=== PATIENT | male | born 1950 | race Caucasian/White ===

== ENCOUNTER 2020-08-12 14:23 | Inpatient (IN) ==
--- NOTE | 2020-08-12 15:26 | Emergency Department Note ---
History of Present Illness General Chief complaint: Cardiac Assessment Stated complaint: CARDIAC Time Seen by Provider: 08/12/20 15:08 Source: patient History of Present Illness Provider complaint: Chest pain Onset (ago): week(s) Location: chest Severity: moderate Pain Consistency: + intermittent and + now resolved Maximum Pain Intensity: 6 Quality: + other (Tightness) Exacerbated By: + other (Exertion) Associated symptoms: + cough (Chronic mild cough which is nonproductive in the morning) and + shortness of breath; no fever/chills, no malaise and no nausea/vomiting Treatments prior to arrival: other (300 cc bolus of normal saline IV) This is a 70-year-old male who presents with chest pain intermittently for the past week. The patient states that the pain is a tightness in the middle of his chest. It is associated with shortness of breath. He rates it a 6 out of 10 in severity at its worse. It is now resolved. It is worse when he exerts himself. He also has had palpitations on and off for the past 3 to 4 weeks. He describes it as an irregular heartbeat and sometimes tachycardia. He does state that he has been lightheaded recently but denies any syncope. He denies any fever, abdominal pain, vomiting or urinary symptoms. He has had some diarrhea previously but that has resolved. He denies any history of ICH or GI bleed. He is not on any anticoagulants other than aspirin. He has had a nonproductive c ough which she has only in the mornings for about 5 weeks. He denies any loss of taste or smell or known exposure to COVID-19. Home Medications Home Medications Medication Instructions Recorded Confirmed Type acetaminophen 325 mg PO Q6H PRN 10/30/18 08/12/20 History aspirin 81 mg PO DAILY 10/30/18 08/12/20 History cholecalciferol (vitamin D3) 125 mcg PO DAILY #0 10/30/18 08/12/20 History [Vitamin D3] cyanocobalamin (vitamin B-12) 1,000 mcg PO DAILY #0 10/30/18 08/12/20 History [Vitamin B-12] duloxetine 60 mg PO PM 10/30/18 08/12/20 History finasteride 5 mg PO DAILY 10/30/18 08/12/20 History metformin 2,000 mg PO PM 10/30/18 08/12/20 History metoprolol tartrate 37.5 mg PO BID 10/30/18 08/12/20 History cyclobenzaprine 10 mg PO HS 07/07/20 08/12/20 History morphine 15 mg PO BID 07/07/20 08/12/20 History omeprazole 20 mg PO DAILY 07/07/20 08/12/20 History pregabalin 100 mg PO TID 07/07/20 08/12/20 History rosuvastatin 40 mg PO DAILY 07/07/20 08/12/20 History topiramate 25 mg PO BID 07/07/20 08/12/20 History Januvia 100 mg PO DAILY 08/12/20 08/12/20 History duloxetine 30 mg PO QPM 08/12/20 08/12/20 History insulin glargine [Lantus U-100 20 unit SUBCUT QAM 08/12/20 08/12/20 History Insulin] linagliptin [Tradjenta] 5 mg PO DAILY 08/12/20 08/12/20 History magnesium oxide 400 mg PO DAILY 08/12/20 08/12/20 History nystatin 1 applic TOPICAL UD 08/12/20 08/12/20 History potassium chloride 10 meq PO BID 08/12/20 08/12/20 History Allergies Allergy/AdvReac Type Severity Reaction Status Date / Time No Known Drug Allergies Allergy Unknown Verified 08/12/20 17:34 Past Med/Surg History Medical History (Updated 08/12/20 @ 19:34 by Kp Means MD) 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 BPH (benign prostatic hyperplasia) CAD (coronary artery disease) Chronic pain due to trauma Depression Diabetes mellitus Drug induced constipation Former cigarette smoker HTN (hypertension) KEMI (obstructive sleep apnea) UTI symptoms Surgical History Heart valve replaced History of appendectomy History of tonsillectomy Hx of CABG S/P AVR (aortic valve replacement) Family History Mother Skin cancer Sister Intestinal cancer Social History Smoking Status: Former smoker Second Hand Exposure: No; Hx Alcohol Use: No Hx Substance Use: No Preferred Language: Macedonian Communication Ability: Impaired Beliefs That Will Affect Care: None Current Living Situation: Alone Feels Safe at Home: Yes Assistive Devices: Denture - Upper, Denture - Lower, Glasses, Hearing Aid - Left, Hearing Aid - Right and Wheelchair Review of Systems See HPI for pertinent positives & negatives. and A total of 10 systems reviewed and were otherwise negative Physical Exam Vital Signs Vital Signs - 24 hr 08/12/20 14:29 08/12/20 14:32 08/12/20 14:34 Temperature 36.7 C Temperature Source Oral Pulse Rate 106 H 101 H 93 H Pulse Rate [Apical] Pulse Rate from SpO2 Sensor 97 H Respiratory Rate 18 21 23 Respiratory Effort / Characteristics Respiratory Depth Respiratory Pattern Blood Pressure 91/61 L 91/61 L Blood Pressure [Right Arm] Blood Pressure Mean 71 74 Blood Pressure Mean [Right Arm] Blood Pressure Position [Right Arm] Pulse Oximetry 92 98 Oxygen Delivery Method Room Air Sepsis Recent Fever Within 48 Hours No Sepsis New/Unexplained Change in Mental Status N/A Sepsis Action Taken by Nursing No Action Required 08/12/20 14:40 08/12/20 14:50 08/12/20 15:00 Temperature Temperature Source Pulse Rate 93 H 102 H 92 H Pulse Rate [Apical] Pulse Rate from SpO2 Sensor 100 H Respiratory Rate 25 H 25 H 16 Respiratory Effort / Characteristics Respiratory Depth Respiratory Pattern Blood Pressure 110/59 L Blood Pressure [Right Arm] Blood Pressure Mean 71 Blood Pressure Mean [Right Arm] Blood Pressure Position [Right Arm] Pulse Oximetry 92 Oxygen Delivery Method Sepsis Recent Fever Within 48 Hours Sepsis New/Unexplained Change in Mental Status Sepsis Action Taken by Nursing 08/12/20 15:01 08/12/20 15:10 08/12/20 15:13 Temperature Temperature Source Pulse Rate 95 H 95 H Pulse Rate [Apical] 101 H Pulse Rate from SpO2 Sensor Respiratory Rate 16 15 16 Respiratory Effort / Characteristics Respiratory Depth Respiratory Pattern Blood Pressure Blood Pressure [Right Arm] 110/59 L Blood Pressure Mean Blood Pressure Mean [Right Arm] 76 Blood Pressure Position [Right Arm] Pulse Oximetry 96 Oxygen Delivery Method Sepsis Recent Fever Within 48 Hours Sepsis New/Unexplained Change in Mental Status Sepsis Action Taken by Nursing 08/12/20 15:20 08/12/20 15:30 08/12/20 15:31 Temperature Temperature Source Pulse Rate 91 H 97 H 102 H Pulse Rate [Apical] Pulse Rate from SpO2 Sensor Respiratory Rate 14 14 12 Respiratory Effort / Characteristics Respiratory Depth Respiratory Pattern Blood Pressure 109/66 Blood Pressure [Right Arm] Blood Pressure Mean 80 Blood Pressure Mean [Right Arm] Blood Pressure Position [Right Arm] Pulse Oximetry Oxygen Delivery Method Sepsis Recent Fever Within 48 Hours Sepsis New/Unexplained Change in Mental Status Sepsis Action Taken by Nursing 08/12/20 15:40 08/12/20 15:50 08/12/20 16:00 Temperature Temperature Source Pulse Rate 97 H 97 H Pulse Rate [Apical] Pulse Rate from SpO2 Sensor 100 H Respiratory Rate 16 20 Respiratory Effort / Characteristics Respiratory Depth Respiratory Pattern Blood Pressure 118/70 Blood Pressure [Right Arm] Blood Pressure Mean 76 Blood Pressure Mean [Right Arm] Blood Pressure Position [Right Arm] Pulse Oximetry 96 Oxygen Delivery Method Sepsis Recent Fever Within 48 Hours Sepsis New/Unexplained Change in Mental Status Sepsis Action Taken by Nursing 08/12/20 16:01 08/12/20 16:15 08/12/20 16:20 Temperature Temperature Source Pulse Rate 94 H 100 H Pulse Rate [Apical] Pulse Rate from SpO2 Sensor 102 H Respiratory Rate 26 H 24 Respiratory Effort / Characteristics Respiratory Depth Respiratory Pattern Blood Pressure Blood Pressure [Right Arm] Blood Pressure Mean Blood Pressure Mean [Right Arm] Blood Pressure Position [Right Arm] Pulse Oximetry 97 Oxygen Delivery Method Sepsis Recent Fever Within 48 Hours Sepsis New/Unexplained Change in Mental Status Sepsis Action Taken by Nursing 08/12/20 16:30 08/12/20 16:40 08/12/20 16:41 Temperature Temperature Source Pulse Rate 102 H 88 Pulse Rate [Apical] Pulse Rate from SpO2 Sensor 94 H Respiratory Rate 21 21 Respiratory Effort / Characteristics Respiratory Depth Respiratory Pattern Blood Pressure Blood Pressure [Right Arm] Blood Pressure Mean Blood Pressure Mean [Right Arm] Blood Pressure Position [Right Arm] Pulse Oximetry 98 92 Oxygen Delivery Method Room Air Sepsis Recent Fever Within 48 Hours Sepsis New/Unexplained Change in Mental Status Sepsis Action Taken by Nursing 08/12/20 16:50 08/12/20 17:00 08/12/20 17:10 Temperature Temperature Source Pulse Rate 91 H 99 H 100 H Pulse Rate [Apical] Pulse Rate from SpO2 Sensor 95 H 100 H 92 H Respiratory Rate 20 23 18 Respiratory Effort / Characteristics Respiratory Depth Respiratory Pattern Blood Pressure 94/67 L Blood Pressure [Right Arm] Blood Pressure Mean 76 Blood Pressure Mean [Right Arm] Blood Pressure Position [Right Arm] Pulse Oximetry 100 95 Oxygen Delivery Method Sepsis Recent Fever Within 48 Hours Sepsis New/Unexplained Change in Mental Status Sepsis Action Taken by Nursing 08/12/20 17:20 08/12/20 17:30 08/12/20 17:31 Temperature Temperature Source Pulse Rate 92 H 93 H 100 H Pulse Rate [Apical] Pulse Rate from SpO2 Sensor 95 H 91 H 99 H Respiratory Rate 17 23 22 Respiratory Effort / Characteristics Respiratory Depth Respiratory Pattern Blood Pressure 91/46 L Blood Pressure [Right Arm] Blood Pressure Mean 66 Blood Pressure Mean [Right Arm] Blood Pressure Position [Right Arm] Pulse Oximetry 94 96 96 Oxygen Delivery Method Sepsis Recent Fever Within 48 Hours Sepsis New/Unexplained Change in Mental Status Sepsis Action Taken by Nursing 08/12/20 17:40 08/12/20 17:50 08/12/20 18:00 Temperature Temperature Source Pulse Rate 91 H 89 97 H Pulse Rate [Apical] Pulse Rate from SpO2 Sensor 117 H 103 H Respiratory Rate 16 15 18 Respiratory Effort / Characteristics Respiratory Depth Respiratory Pattern Blood Pressure 105/56 L Blood Pressure [Right Arm] Blood Pressure Mean 64 Blood Pressure Mean [Right Arm] Blood Pressure Position [Right Arm] Pulse Oximetry Oxygen Delivery Method Sepsis Recent Fever Within 48 Hours Sepsis New/Unexplained Change in Mental Status Sepsis Action Taken by Nursing 08/12/20 18:01 08/12/20 18:10 08/12/20 18:20 Temperature Temperature Source Pulse Rate 95 H 92 H 96 H Pulse Rate [Apical] Pulse Rate from SpO2 Sensor Respiratory Rate 17 18 22 Respiratory Effort / Characteristics Respiratory Depth Respiratory Pattern Blood Pressure Blood Pressure [Right Arm] Blood Pressure Mean Blood Pressure Mean [Right Arm] Blood Pressure Position [Right Arm] Pulse Oximetry Oxygen Delivery Method Sepsis Recent Fever Within 48 Hours Sepsis New/Unexplained Change in Mental Status Sepsis Action Taken by Nursing 08/12/20 18:30 08/12/20 18:31 08/12/20 18:40 Temperature Temperature Source Pulse Rate 90 97 H 98 H Pulse Rate [Apical] Pulse Rate from SpO2 Sensor Respiratory Rate 20 21 16 Respiratory Effort / Characteristics Respiratory Depth Respiratory Pattern Blood Pressure 95/64 L Blood Pressure [Right Arm] Blood Pressure Mean 69 Blood Pressure Mean [Right Arm] Blood Pressure Position [Right Arm] Pulse Oximetry Oxygen Delivery Method Sepsis Recent Fever Within 48 Hours Sepsis New/Unexplained Change in Mental Status Sepsis Action Taken by Nursing 08/12/20 18:45 08/12/20 18:46 08/12/20 18:50 Temperature Temperature Source Pulse Rate 90 94 H Pulse Rate [Apical] 98 H Pulse Rate from SpO2 Sensor 95 H Respiratory Rate 18 20 20 Respiratory Effort / Characteristics Non-Labored Spontaneous Respiratory Depth Normal Respiratory Pattern Regular Blood Pressure 93/47 L Blood Pressure [Right Arm] 93/47 L Blood Pressure Mean 72 Blood Pressure Mean [Right Arm] 62 Blood Pressure Position [Right Arm] Lying Pulse Oximetry 94 Oxygen Delivery Method Room Air Sepsis Recent Fever Within 48 Hours Sepsis New/Unexplained Change in Mental Status Sepsis Action Taken by Nursing 08/12/20 19:00 08/12/20 19:01 08/12/20 19:10 Temperature Temperature Source Pulse Rate 97 H 99 H 103 H Pulse Rate [Apical] Pulse Rate from SpO2 Sensor Respiratory Rate 20 19 14 Respiratory Effort / Characteristics Respiratory Depth Respiratory Pattern Blood Pressure 103/61 Blood Pressure [Right Arm] Blood Pressure Mean 75 Blood Pressure Mean [Right Arm] Blood Pressure Position [Right Arm] Pulse Oximetry Oxygen Delivery Method Sepsis Recent Fever Within 48 Hours Sepsis New/Unexplained Change in Mental Status Sepsis Action Taken by Nursing 08/12/20 19:20 Temperature Temperature Source Pulse Rate 97 H Pulse Rate [Apical] Pulse Rate from SpO2 Sensor Respiratory Rate 17 Respiratory Effort / Characteristics Respiratory Depth Respiratory Pattern Blood Pressure Blood Pressure [Right Arm] Blood Pressure Mean Blood Pressure Mean [Right Arm] Blood Pressure Position [Right Arm] Pulse Oximetry Oxygen Delivery Method Sepsis Recent Fever Within 48 Hours Sepsis New/Unexplained Change in Mental Status Sepsis Action Taken by Nursing Constitutional: Vital signs reviewed. Eyes: Pupils are equal round reactive to light. Conjunctiva are noninjected. ENT: Pharynx is clear without erythema or exudate. Mucous membranes are slightly dry. Neck supple without meningeal signs. Respiratory: Clear to auscultation bilaterally. Breath sounds are equal bilaterally. Cardiovascular: Irregularly irregular rhythm. Rate is 96. GI: Soft, nondistended and nontender. Bowel sounds are present. Musculoskeletal: Left lower extremity AKA. Right lower extremity without edema or tenderness. Integumentary: No cyanosis. or jaundice. Neurological: The patient is awake and alert. No focal deficits. Psychiatric: Normal affect. Course Administered Medications Heparin Sodium/Dextrose (Heparin Sodium/Dextrose) 25,000 units in 500 mls @ 20 mls/hr IV .Q24H [facility]; Protocol Stop: 09/11/20 16:29 Last Admin: 08/12/20 17:10 Dose: 1,000 units/hr, 20 mls/hr Documented by: [id number] Cosigned by: [id number] Discontinued Medications Heparin Sodium (Porcine) (Heparin Sod (Porcine) 1000 Unit/Ml 10 Ml Vial) Confirm Administered Dose 10,000 units .ROUTE .STK-MED ONE Stop: 08/12/20 17:05 Last Admin: 08/12/20 17:11 Dose: 4,000 units Documented by: [id number] Cosigned by: [id number] Heparin Sodium/Dextrose (Heparin Iv Low Dose With Bolus) 1 ea IV NOW STA; Protocol Stop: 08/12/20 16:31 Last Admin: 08/12/20 17:14 Dose: 1 ea Documented by: [id number] Sodium Chloride (Nss) 250 mls @ 999 mls/hr IV .Q16M ONE Stop: 08/12/20 16:13 Last Infusion: 08/12/20 17:15 Dose: 0 mls/hr Documented by: [id number] Admin: 08/12/20 16:16 Dose: 999 mls/hr Documented by: [id number] Potassium Chloride (K Rachid / Wtr) 10 meq in 100 mls @ 100 mls/hr IV Q1H [facility] Stop: 08/12/20 17:59 Last Infusion: 08/12/20 18:16 Dose: 0 mls/hr Documented by: [id number] Admin: 08/12/20 17:15 Dose: 100 mls/hr Documented by: [id number] Infusion: 08/12/20 17:15 Dose: 100 mls/hr Documented by: [id number] Admin: 08/12/20 16:16 Dose: 100 mls/hr Documented by: [id number] Magnesium Sulfate/Dextrose (Magnesium Sulfate / D5w) 1 gm in 100 mls @ 200 mls/hr IV Q30M [facility] Stop: 08/12/20 16:58 Last Infusion: 08/12/20 18:17 Dose: 0 mls/hr Documented by: [id number] Admin: 08/12/20 17:10 Dose: 200 mls/hr Documented by: [id number] Infusion: 08/12/20 16:46 Dose: 200 mls/hr Documented by: [id number] Admin: 08/12/20 16:16 Dose: 200 mls/hr Documented by: [id number] Critical Care Time Critical Care Time: Yes Total Critical Care Time: 45 I have personally spent approximately 45 minutes of critical care time in the direct management of this patient. This includes bedside care, interpretation of diagnostic studies, and testing, discussion with consultants, patient, and family members, and other required patient management activities. These minutes are in excess of all separately billable procedures. Medical Decision Making Differential Diagnosis New onset atrial fibrillation, A. fib with RVR, unstable angina, VA, electrolyte abnormality, metabolic derangement Medical Records Attestation: I reviewed the patient's medical records. I did perform a limited focused review of portions of the patient's old chart on the electronic medical record. The patient was seen here by myself after a fall last month. He had an EKG at that time which showed normal sinus rhythm. He was discharged on Keflex for UTI. Home Medications Current Medication List: was personally reviewed by me Laboratory Data Attestation: I reviewed the patient's lab results. Result diagrams: 08/12/20 14:30 08/12/20 14:30 Lab Results 08/12/20 08/12/20 08/12/20 Range/Units 14:30 14:30 14:30 WBC 23.58 H (4.8-10.8) K/uL RBC 3.85 L (4.7-6.1) M/uL Hgb 10.3 L (14.0-18.0) g/dL Hct 29.8 L (42-52) % MCV 77.4 L (80-100) fL MCH 26.8 (25-34) pg MCHC 34.6 (32-36) g/dL RDW Std Deviation 42.4 (36.4-46.3) fL RDW Coeff of [place] 14.9 H (11.5-14.5) % Plt Count 505 H (130-400) K/uL MPV 11.7 H (7.4-10.4) fL Immature Gran % (Auto) 0.4 % Neut % (Auto) 89.5 % Lymph % (Auto) 2.9 % [place] % (Auto) 7.2 % Eos % (Auto) 0.0 % Baso % (Auto) 0.0 % Neut # (Auto) 21.09 H (1.4-6.5) K/uL Lymph # (Auto) 0.69 L (1.2-3.4) K/uL [place] # (Auto) 1.70 H (0.11-0.59) K/uL Eos # (Auto) 0.00 (0-0.5) K/uL Baso # (Auto) 0.01 (0-0.2) K/uL Immature Gran # (Auto) 0.09 H (0.00-0.02) K/uL Echinocytes 1+ PT 11.9 (9.0-12.0) Seconds INR 1.1 (0.9-1.1) APTT 31.0 (21.0-31.0) Seconds PTT Ratio 1.1 Sodium 129 L (136-145) mmol/L Potassium 2.7 L (3.5-5.1) mmol/L Chloride 95 L (98-107) mmol/L Carbon Dioxide 20 L (21-32) mmol/L Anion Gap 14.0 H (3-11) BUN 23 H (7-18) mg/dl Creatinine 1.69 H (0.6-1.4) mg/dl Est Cr Clr Drug Dosing 48.1 ml/min Est GFR ( Amer) 47.0 Est GFR (Non-Af Amer) 40.5 BUN/Creatinine Ratio 13.7 (10-20) Glucose 195 H (70-99) mg/dl Lactate (0.4-2.0) mmol/L Calcium 9.1 (8.5-10.1) mg/dl Magnesium 1.3 L (1.8-2.4) mg/dl Total Bilirubin 0.6 (0.2-1) mg/dl AST 35 (15-37) U/L ALT 22 (12-78) U/L Alkaline Phosphatase 99 (45-117) U/L Troponin I 0.067 H* (0-0.045) ng/ml Total Protein 8.1 (6.4-8.2) gm/dl Albumin 2.9 L (3.4-5.0) gm/dl Globulin 5.2 H (2.5-4.0) gm/dl Albumin/Globulin Ratio 0.6 L (0.9-2) Urine Color Urine Appearance (Clear) Urine pH (4.5-7.5) Ur Specific [place] (1.000-1.030) Urine Protein (Negative) Urine Glucose (UA) (Negative) Urine Ketones (Negative) Urine Blood (Negative) Urine Nitrite (Negative) Urine Bilirubin (Negative) Urine Urobilinogen (Negative) Ur Leukocyte Esterase (Negative) Urine WBC (Auto) (0-5) /hpf Urine RBC (Auto) (0-4) /hpf U Hyaline Cast (Auto) (0-5) /lpf U Epithel Cells (Auto) (0-5) /lpf Urine Bacteria (Auto) (Negative) Urine Yeast COVID-19 Eval Order COVID-19 PCR (Negative) 08/12/20 08/12/20 08/12/20 Range/Units 16:30 17:14 17:14 WBC (4.8-10.8) K/uL RBC (4.7-6.1) M/uL Hgb (14.0-18.0) g/dL Hct (42-52) % MCV (80-100) fL MCH (25-34) pg MCHC (32-36) g/dL RDW Std Deviation (36.4-46.3) fL RDW Coeff of [place]alle (11.5-14.5) % Plt Count (130-400) K/uL MPV (7.4-10.4) fL Immature Gran % (Auto) % Neut % (Auto) % Lymph % (Auto) % [place] % (Auto) % Eos % (Auto) % Baso % (Auto) % Neut # (Auto) (1.4-6.5) K/uL Lymph # (Auto) (1.2-3.4) K/uL [place] # (Auto) (0.11-0.59) K/uL Eos # (Auto) (0-0.5) K/uL Baso # (Auto) (0-0.2) K/uL Immature Gran # (Auto) (0.00-0.02) K/uL Echinocytes PT (9.0-12.0) Seconds INR (0.9-1.1) APTT (21.0-31.0) Seconds PTT Ratio Sodium (136-145) mmol/L Potassium (3.5-5.1) mmol/L Chloride (98-107) mmol/L Carbon Dioxide (21-32) mmol/L Anion Gap (3-11) BUN (7-18) mg/dl Creatinine (0.6-1.4) mg/dl Est Cr Clr Drug Dosing ml/min Est GFR ( Amer) Est GFR (Non-Af Amer) BUN/Creatinine Ratio (10-20) Glucose (70-99) mg/dl Lactate (0.4-2.0) mmol/L Calcium (8.5-10.1) mg/dl Magnesium (1.8-2.4) mg/dl Total Bilirubin (0.2-1) mg/dl AST (15-37) U/L ALT (12-78) U/L Alkaline Phosphatase (45-117) U/L Troponin I (0-0.045) ng/ml Total Protein (6.4-8.2) gm/dl Albumin (3.4-5.0) gm/dl Globulin (2.5-4.0) gm/dl Albumin/Globulin Ratio (0.9-2) Urine Color Yellow Urine Appearance Turbid A (Clear) Urine pH 5.5 (4.5-7.5) Ur Specific [place] 1.010 (1.000-1.030) Urine Protein 2+ H (Negative) Urine Glucose (UA) Trace H (Negative) Urine Ketones Trace H (Negative) Urine Blood 2+ H (Negative) Urine Nitrite Negative (Negative) Urine Bilirubin Negative (Negative) Urine Urobilinogen Negative (Negative) Ur Leukocyte Esterase 3+ H (Negative) Urine WBC (Auto) >30 H (0-5) /hpf Urine RBC (Auto) 0-4 (0-4) /hpf U Hyaline Cast (Auto) 1-5 (0-5) /lpf U Epithel Cells (Auto) 20-30 H (0-5) /lpf Urine Bacteria (Auto) 1+ H (Negative) Urine Yeast Not Reportable COVID-19 Eval Order Cancelled Covid19 Done at [facility] COVID-19 PCR (Negative) 08/12/20 08/12/20 Range/Units 17:14 17:33 WBC (4.8-10.8) K/uL RBC (4.7-6.1) M/uL Hgb (14.0-18.0) g/dL Hct (42-52) % MCV (80-100) fL MCH (25-34) pg MCHC (32-36) g/dL RDW Std Deviation (36.4-46.3) fL RDW Coeff of Halle (11.5-14.5) % Plt Count (130-400) K/uL MPV (7.4-10.4) fL Immature Gran % (Auto) % Neut % (Auto) % Lymph % (Auto) % [place] % (Auto) % Eos % (Auto) % Baso % (Auto) % Neut # (Auto) (1.4-6.5) K/uL Lymph # (Auto) (1.2-3.4) K/uL [place] # (Auto) (0.11-0.59) K/uL Eos # (Auto) (0-0.5) K/uL Baso # (Auto) (0-0.2) K/uL Immature Gran # (Auto) (0.00-0.02) K/uL Echinocytes PT (9.0-12.0) Seconds INR (0.9-1.1) APTT (21.0-31.0) Seconds PTT Ratio Sodium (136-145) mmol/L Potassium (3.5-5.1) mmol/L Chloride (98-107) mmol/L Carbon Dioxide (21-32) mmol/L Anion Gap (3-11) BUN (7-18) mg/dl Creatinine (0.6-1.4) mg/dl Est Cr Clr Drug Dosing ml/min Est GFR ( Amer) Est GFR (Non-Af Amer) BUN/Creatinine Ratio (10-20) Glucose (70-99) mg/dl Lactate 1.9 (0.4-2.0) mmol/L Calcium (8.5-10.1) mg/dl Magnesium (1.8-2.4) mg/dl Total Bilirubin (0.2-1) mg/dl AST (15-37) U/L ALT (12-78) U/L Alkaline Phosphatase (45-117) U/L Troponin I (0-0.045) ng/ml Total Protein (6.4-8.2) gm/dl Albumin (3.4-5.0) gm/dl Globulin (2.5-4.0) gm/dl Albumin/Globulin Ratio (0.9-2) Urine Color Urine Appearance (Clear) Urine pH (4.5-7.5) Ur Specific [place] (1.000-1.030) Urine Protein (Negative) Urine Glucose (UA) (Negative) Urine Ketones (Negative) Urine Blood (Negative) Urine Nitrite (Negative) Urine Bilirubin (Negative) Urine Urobilinogen (Negative) Ur Leukocyte Esterase (Negative) Urine WBC (Auto) (0-5) /hpf Urine RBC (Auto) (0-4) /hpf U Hyaline Cast (Auto) (0-5) /lpf U Epithel Cells (Auto) (0-5) /lpf Urine Bacteria (Auto) (Negative) Urine Yeast COVID-19 Eval Order COVID-19 PCR POSITIVE A* (Negative) Imaging Data Radiologist's Impression: ECG Data Attestation: I personally reviewed and interpreted this ECG as follows: Indication: + chest pain Rate (beats per minute): 97 Rhythm: + atrial fibrillation ECG [place]: + Normal ECG ST segments: no ST elevation ECG Findings: + LVH; no PVCs Comparison ECG Date: from (July 07, 2020) Change: the following changes noted (Atrial fibrillation is new. Otherwise no significant changes) MDM Narrative I did evaluate the patient as noted above. The patient is presenting with new onset atrial fibrillation with intermittent exertional chest pain. He was hypotensive in the field and was given a bolus of normal saline 300 cc prior to arrival. His blood pressure now is 110/59. He was given an additional 250 cc of normal saline IV. He is currently not having any chest discomfort or andrea rtness of breath. I did place an order for continuous cardiac monitoring. The monitor showed atrial fibrillation at a rate of 96 bpm. I did order and personally review the patient's 12-lead EKG as described above. He has atrial fibrillation without acute ischemic changes. I did order and personally reviewed the images of the patient's chest x-ray as described above. There is no evidence of pneumonia. I did order and review the patient's blood work as noted in the electronic medical record. He has a white count of 23,000 with anemia and thrombocytosis. He denies having any fever or infectious complaints. He has a morning cough which she has had for 5 weeks. I did order a urine anal ysis. The patient requested a Mejia catheter be placed when I asked for a sample. I did order a Mejia catheter. His other labs demonstrate significant electrolyte abnormalities. His sodium is 129, potassium is 2.7 and magnesium is 1.2. He does have an elevated creatinine at 1.69 as well. I did treat him with IV KCl as well as IV magnesium. The patient's troponin is also slightly elevated as well. Lactate was normal. I did recommend anticoagulation with IV heparin. I did discuss risks and benefits with the patient. He does have a [id number] VASc score of 3. I did discuss this with the hospitalist service who were in agreement with the plan for heparinization. I did order IV heparin with a bolus and drip. The patient was admitted to the hospital. Urinalysis later shows a UTI. He also had a positive COVID-19 test as ordered by the hospitalist. Impression & Plan Atrial fibrillation, new onset, Chest pain, Acute hypotension, Acute hypokalemia, Hypomagnesemia, Elevated serum creatinine, Elevated troponin, Acute hyponatremia, Anemia, Thrombocytosis, Leukocytosis, COVID-19, Acute UTI Discharge Plan Visit Data Chief Complaint: Cardiac Assessment Stated Complaint: CARDIAC ED Provider: Kp Means Discharge Problem: Atrial fibrillation, new onset, Chest pain, Acute hypotension, Acute hypokalemia, Hypomagnesemia, Elevated serum creatinine, Elevated troponin, Acute hyponatremia, Anemia, Thrombocytosis, Leukocytosis, COVID-19, Acute UTI Forms Stand Alone Forms: [facility] Prescriptions Prescriptions: No Action cyclobenzaprine 10 mg tablet 10 mg PO HS RF: 0 topiramate 25 mg tablet 25 mg PO BID RF: 0 omeprazole 20 mg capsule,delayed release(DR/EC) 20 mg PO DAILY RF: 0 morphine 15 mg tablet 15 mg PO BID RF: 0 rosuvastatin 40 mg tablet 40 mg PO DAILY RF: 0 pregabalin 100 mg capsule 100 mg PO TID RF: 0 acetaminophen 325 mg Tablet 325 mg PO Q6H PRN (Reason: Pain) RF: 0 aspirin 81 mg Tablet,Delayed Release (Dr/Ec) 81 mg PO DAILY RF: 0 finasteride 5 mg Tablet 5 mg PO DAILY RF: 0 duloxetine 60 mg Capsule,Delayed Release(Dr/Ec) 60 mg PO PM RF: 0 cyanocobalamin (vitamin B-12) [Vitamin B-12] 1,000 mcg Tablet 1,000 mcg PO DAILY Qty: 0 RF: 0 cholecalciferol (vitamin D3) [Vitamin D3] 125 mcg (5,000 unit) Tablet 125 mcg PO DAILY Qty: 0 RF: 0 metformin 500 mg Tablet Extended Release 24 Hr 2,000 mg PO PM RF: 0 metoprolol tartrate 25 mg Tablet 37.5 mg PO BID RF: 0 potassium chloride 10 mEq capsule, extended release 10 meq PO BID RF: 0 duloxetine 30 mg capsule,delayed release(DR/EC) 30 mg PO QPM RF: 0 Lantus U-100 Insulin 100 unit/mL Cartridge 20 unit SUBCUT QAM RF: 0 Tradjenta 5 mg Tablet 5 mg PO DAILY RF: 0 magnesium oxide 400 mg magnesium Tablet 400 mg PO DAILY RF: 0 nystatin 100,000 unit/gram powder 1 applic TOPICAL UD RF: 0 Januvia 100 mg 100 mg PO DAILY RF: 0 Referrals Referrals: Kelli Vasquez MD [Primary Care Provider] - Discharge Problem: Chest pain Qualifiers: Chest pain type: unspecified Qualified Code(s): R07.9 - Chest pain, unspecified Anemia Qualifiers: Anemia type: unspecified type Qualified Code(s): D64.9 - Anemia, unspecified Leukocytosis Qualifiers: Leukocytosis type: unspecified Qualified Code(s): D72.829 - Elevated white blood cell count, unspecified
[2020-08-12 15:42] LABS: Hematocrit (blood only) 29.8 % (42-52); Hemoglobin 10.3 g/dL (14.0-18.0); Mean Corpuscular Hemoglobin 26.8 pg (25-34); Mean Corpuscular Hgb Conc 34.6 g/dL (32-36); Mean Corpuscular Volume 77.4 fL (80-100); Mean Platelet Volume 11.7 fL (7.4-10.4); Platelet Count 505 K/uL (130-400); RDW Coefficient of Variation 14.9 % (11.5-14.5); RDW Standard Deviation 42.4 fL (36.4-46.3); Red Blood Count 3.85 M/uL (4.7-6.1); White Blood Count 23.58 K/uL (4.8-10.8)
--- NOTE | 2020-08-12 15:48 | XRay Report ---
XR chest 1V portable CLINICAL HISTORY: Atypical chest pain COMPARISON STUDY: July 07, 2020 FINDINGS: The cardiac and mediastinal contours are normal. There is no evidence of focal pulmonary co nsolidation. There is no evidence of failure. No pleural effusions are visualized.[ IMPRESSION: No active disease in the chest. ACT 112: Negative or not required by law. Electronically signed by: Demarcus Zamora M.D. 08/12/2020 3:47 PM
[2020-08-12 15:49] LABS: Albumin Level 2.9 gm/dl (3.4-5.0); BUN Creatinine Ratio 13.7 (10-20); Calcium 9.1 mg/dl (8.5-10.1); Creatinine Clr Calc Pharmacy 48.1 ml/min; Est GFR (Non-African American) 40.5; Magnesium 1.3 mg/dl (1.8-2.4); Potassium 2.7 mmol/L (3.5-5.1)
[2020-08-12 15:56] LABS: Albumin Globulin Ratio 0.6 (0.9-2); Bilirubin,Total 0.6 mg/dl (0.2-1); Globulin 5.2 gm/dl (2.5-4.0); INR 1.1 (0.9-1.1); Partial Thromboplastin Ratio 1.1; Prothrombin Time 11.9 Seconds (9.0-12.0); Total Protein 8.1 gm/dl (6.4-8.2); Troponin I 0.067 ng/ml (0-0.045)
[2020-08-12] MEDS ORDERED: SODIUM CHLORIDE 0.9% 250 ML IV ONE (15:58)
[2020-08-12] MEDS: MAGNESIUM SULFATE / D5W 1 GM/100 ML BAG IV SCH ×2 (16:16→17:10)
[2020-08-12] MEDS: POTASSIUM CHLORIDE / WTR 10 MEQ/100 ML PLCT IV SCH ×2 (16:16→17:15)
[2020-08-12 16:23] LABS: Basophils # (auto) 0.01 K/uL (0-0.2); Echinocytes 1+; Immature Granulocytes # (auto) 0.09 K/uL (0.00-0.02); Immature Granulocytes % (auto) 0.4 %; Lymphocytes # (auto) 0.69 K/uL (1.2-3.4); Lymphocytes % (auto) 2.9 %; Monocytes % (auto) 7.2 %; Neutrophils # (auto) 21.09 K/uL (1.4-6.5); Neutrophils % (auto) 89.5 %
[2020-08-12] MEDS ORDERED: Heparin IV Low Dose WITH Bolus IV STA (16:30)
[2020-08-12 16:55] LABS: Appearance Urine Turbid (Clear); Bacteria Urine Automated 1+ (Negative); Bilirubin Urine Negative (Negative); Blood Urine 2+ (Negative); Color Urine Yellow; Epithelial Cell Urine Auto 20-30 /lpf (0-5); Glucose Urine UA Trace (Negative); Ketones Urine Trace (Negative); Leukocyte Esterase Urine 3+ (Negative); Nitrite Urine Negative (Negative); Protein Urine 2+ (Negative); RBC Urine Automated 0-4 /hpf (0-4); Urobilinogen Urine Negative (Negative); WBC Urine Automated >30 /hpf (0-5); pH Urine 5.5 (4.5-7.5)
[2020-08-12] MEDS ORDERED: HEPARIN SOD (PORCINE) 1000 UNIT/ML 10 ML VIAL ONE (17:04)
[2020-08-12] MEDS: HEPARIN SODIUM/DEXTROSE 25,000 UNITS/500 ML BAG IV SCH (17:10)
--- NOTE | 2020-08-12 18:23 | History & Physical Report ---
Date of Service August 12, 2020 Assessment & Plan (1) Atrial fibrillation, new onset: Present on admission with shortness of breath on exertion associated with palpitation EKG on admission showed A. fib with HR 97 Possible related to electrolyte imbalance due to diarrhea and acute infection with covid 19 Was started on a IV heparin drip in the ER due to high [id number] score Electrolytes replaced, will keep K above 4 and Mg above 2 Will get an echo Will consult cardiology Continue metoprolol 37.5 mg BID Consider to add a low dose IV lopressor PRN for HR above 120 Will monitor closely in tele COVID 19 CXR showed no active disease in the chest. Denies any recent exposure to anyone testing positive with COVID 19 Recently discharge from [facility] about 10 days ago saturated well on RA Not a candidate for dexametasone and remdesivir since his O2 saturation is 94% on RA Will place on isolation Will check Procalcitonin, Ferritin, ESR and CRP Elevated troponin Mostly related to Afib Troponin on admission 0.067 EKG showed no ischemic changes Will trend trop Already on Heparin drip for Afib currently denies any chest pain Follow up echo Continue aspirin, statin and metoprolol KENIA Possible related to dehydration due to diarrhea Creatinine on admission 1.66 (baseline 1.2-1.3) received IVF in the ER , will continue IV hydration Will avoid nephrotoxic agents Continue monitor BMP Electrolytes Imbalance Mg 1.3 and K 2.7 and Na 129 on admission Mg and K replaced Continue IVF Continue Monitor BMP Elevated WBC Possible related to +COVID 19 lactate normal and afebrile Will check Procalcitonin Will hold on abx for now unless procalcitonin elevates or develops any fever Continue monitor CBC Abnormal UA Denies any urinary symptoms UA positive for Leukocytes and bacteria Elevated WBC Will hold on abx for now follow up urine cx DM type 2 uncontrolled DM, last Hba1c 11.6 on 06/26 Will hold oral diabetes med (metformin, trajenta and Januvia) Will continue lantus and add novolog sliding scale during the hospital course Continue monitor BS Dyslipidemia Recent lipid panel on 08/10 with Chol 99, HDL 32 and LDL 46 Continue statin stable L AKA fall precaution Consider PT/OT once symptoms improve DVT px on IV heparin drip CODE STATUS DNR as per pt wishes Disposition Will discharge once medically stable History of Present Illness Chief Complaint: Afib and SOB Primary Care Provider: Kelli Glaser MD 70 years old male with past medical history of uncontrolled diabetes type 2, also left 6 obstructive sleep apnea, BPH, chronic pain, left knee AKA,, hypertension dyslipidemia, CAD s/p CABG, diabetic neuropathy presented to the ER with chest pain associated with exertional shortness of breath. Patient said about 2 days ago he developed chest discomfort. He described the chest pain as tightness, nonradiated and located in the middle of his chest. He said that he has been having a lot of shortness of breath with exertion associated with on and off palpitation. He said that he never had any history of irregular heart rate. He said in the last few days he was having diarrhea about 3-4 loose bowel movement per day. He said that his diarrhea improved and his last bowel movement was yesterday. he said his symptoms worsening today and prompted him to come to the ER for eval. He said about a week and half ago he was discharged from the SNF to home with home health. Patient denies any cough, fever, abdominal pain, vomiting, loss of smell, loss of taste or urinary symptoms. He denies any recent known exposure with anyone testing positive COVID-19. currently he said he feels much better since he is not exerting himself. Since patient said he has been having worsening shortness of breath with exertion and diarrhea and was recently discharged from a snf facility, we checked him for Covid 19 and came back positive. Allergies Allergy/AdvReac Type Severity Reaction Status Date / Time No Known Drug Allergies Allergy Unknown Verified 08/12/20 17:34 Home Medications Home Medications Medication Instructions Recorded Confirmed Type acetaminophen 325 mg PO Q6H PRN 10/30/18 08/12/20 History aspirin 81 mg PO DAILY 10/30/18 08/12/20 History cholecalciferol (vitamin D3) 125 mcg PO DAILY #0 10/30/18 08/12/20 History [Vitamin D3] cyanocobalamin (vitamin B-12) 1,000 mcg PO DAILY #0 10/30/18 08/12/20 History [Vitamin B-12] duloxetine 60 mg PO PM 10/30/18 08/12/20 History finasteride 5 mg PO DAILY 10/30/18 08/12/20 History metformin 2,000 mg PO PM 10/30/18 08/12/20 History metoprolol tartrate 37.5 mg PO BID 10/30/18 08/12/20 History cyclobenzaprine 10 mg PO HS 07/07/20 08/12/20 History morphine 15 mg PO BID 07/07/20 08/12/20 History omeprazole 20 mg PO DAILY 07/07/20 08/12/20 History pregabalin 100 mg PO TID 07/07/20 08/12/20 History rosuvastatin 40 mg PO DAILY 07/07/20 08/12/20 History topiramate 25 mg PO BID 07/07/20 08/12/20 History Januvia 100 mg PO DAILY 08/12/20 08/12/20 History duloxetine 30 mg PO QPM 08/12/20 08/12/20 History insulin glargine [Lantus U-100 20 unit SUBCUT QAM 08/12/20 08/12/20 History Insulin] linagliptin [Tradjenta] 5 mg PO DAILY 08/12/20 08/12/20 History magnesium oxide 400 mg PO DAILY 08/12/20 08/12/20 History nystatin 1 applic TOPICAL UD 08/12/20 08/12/20 History potassium chloride 10 meq PO BID 08/12/20 08/12/20 History Past Med/Surg History Medical History (Updated 08/12/20 @ 19:34 by Kp Means MD) 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 BPH (benign prostatic hyperplasia) CAD (coronary artery disease) Chronic pain due to trauma Depression Diabetes mellitus Drug induced constipation Former cigarette smoker HTN (hypertension) KEMI (obstructive sleep apnea) UTI symptoms Surgical History Heart valve replaced History of appendectomy History of tonsillectomy Hx of CABG S/P AVR (aortic valve replacement) Family History Mother Skin cancer Sister Intestinal cancer Social History Smoking Status: Former smoker Second Hand Exposure: No; Hx Alcohol Use: No Hx Substance Use: No Preferred Language: Ivorian Communication Ability: Impaired Beliefs That Will Affect Care: None Current Living Situation: Alone Feels Safe at Home: Yes Assistive Devices: Denture - Upper, Denture - Lower, Glasses, Hearing Aid - Left, Hearing Aid - Right and Wheelchair Review of Systems Review of Systems: All systems reviewed & are unremarkable except as noted in HPI & below Physical Exam Physical Exam: General- No acute distress Head- atraumatic Eyes- PERRL, EOMI, ENT- decrease hearing function Neck- supple, no JVD Lungs- clear to auscultation Heart- irregular rhythm Abdomen- normal bowel sounds, soft, nontender Extremities- no calf tenderness, L AKA Neuro- alert, oriented x 3; PERRL, EOMI; no facial palsy; no dysarthria Skin- warm & dry Results & Data Results & Data ([facility]) Vital Signs (Past 12 Hours) Vital Signs Temp Pulse Pulse Resp BP BP Pulse Ox 08/12/20 17:40 91 H 16 08/12/20 17:31 100 H 22 96 08/12/20 17:30 93 H 23 91/46 L 96 08/12/20 17:20 92 H 17 94 08/12/20 17:10 100 H 18 95 08/12/20 17:00 99 H 23 94/67 L 100 08/12/20 16:50 91 H 20 08/12/20 16:41 92 08/12/20 16:40 88 21 98 08/12/20 16:30 102 H 21 08/12/20 16:20 100 H 24 08/12/20 16:15 94 H 26 H 08/12/20 16:01 97 08/12/20 16:00 118/70 96 08/12/20 15:50 97 H 20 08/12/20 15:40 97 H 16 08/12/20 15:31 102 H 12 08/12/20 15:30 97 H 14 109/66 08/12/20 15:20 91 H 14 08/12/20 15:13 101 H 16 110/59 L 96 08/12/20 15:10 95 H 15 08/12/20 15:01 95 H 16 08/12/20 15:00 92 H 16 110/59 L 08/12/20 14:50 102 H 25 H 08/12/20 14:40 93 H 25 H 92 08/12/20 14:34 93 H 23 91/61 L 98 08/12/20 14:32 101 H 21 08/12/20 14:29 36.7 C 106 H 18 91/61 L 92 Diagnostic Findings XR chest 1V portable CLINICAL HISTORY: Atypical chest pain COMPARISON STUDY: July 07, 2020 FINDINGS: The cardiac and mediastinal contours are normal. There is no evidence of focal pulmonary consolidation. There is no evidence of failure. No pleural effusions are visualized.[ IMPRESSION: No active disease in the chest. ACT 112: Negative or not required by law. Electronically signed by: Demarcus Zamora M.D. 08/12/2020 3:47 PM Dictated: 08/12/20 1546Transcribed: 08/12/20 1546
--- NOTE | 2020-08-12 18:24 | Electrocardiogram Report ---
Test Reason : Blood Pressure : / mmHG Vent. Rate : 097 BPM Atrial Rate : 113 BPM P-R Int : 000 ms QRS Dur : 102 ms QT Int : 338 ms P-R-T Axes : 000 012 083 degrees QTc Int : 429 ms Atrial fibrillation Voltage criteria for left ventricular hypertrophy Abnormal ECG When compared with ECG of 07-JUL-2020 14:05, Atrial fibrillation has replaced Sinus rhythm Confirmed by Iraj Wright ([id number]) on 08/12/2020 6:24:09 PM Referred By: REFERRED SELF Confirmed By:Prince Wright
[2020-08-12] MEDS ORDERED: POTASSIUM CHLORIDE / WTR 10 MEQ/100 ML PLCT IV ONE (22:16)
[2020-08-12] MEDS ORDERED: GLUCAGON FOR INJ 1 MG VIAL SQ PRN (22:16)
[2020-08-12] MEDS ORDERED: ACETAMINOPHEN 325 MG TAB PO PRN (22:16)
[2020-08-12] MEDS ORDERED: ALBUTEROL HFA 8 GM INHALER INH PRN (22:16)
[2020-08-12] MEDS ORDERED: POTASSIUM CHLORIDE CRTAB 20 MEQ TABCR PO STA (22:16)
[2020-08-12] MEDS ORDERED: SODIUM CHLORIDE 0.9% 1000ML 1,000 ML IV SCH (22:16)
[2020-08-12] MEDS ORDERED: GLUCOSE 40% GEL 15 GM TUBE PO PRN (22:16)
[2020-08-12] MEDS ORDERED: GLUCOSE 10 TABS/TUBE PO PRN (22:16)
[2020-08-12] MEDS: INSULIN ASPART 100 UNITS/ML 3 ML PEN SC SCH (22:49)
[2020-08-12] MEDS: TOPIRAMATE 25 MG TAB PO SCH (23:07)
[2020-08-12] MEDS: MoRPHine SULFATE IR 15 MG TAB (IMMEDIATE RELEASE) PO SCH (23:07)
[2020-08-12] MEDS: PREGABALIN 100 MG CAP PO SCH (23:07)
[2020-08-12] MEDS: CYCLOBENZAPRINE HCL 10 MG TAB PO SCH (23:07)
[2020-08-12] MEDS: DULoxetine HCL 60 MG CAP PO SCH (23:07)
[2020-08-12] MEDS: DULoxetine HCL 30 MG CAP PO SCH (23:07)
[2020-08-12] MEDS: METOPROLOL TARTRATE 25 MG TAB PO SCH (23:08)
[2020-08-13 00:04] LABS: Partial Thromboplastin Ratio 1.3; Partial Thromboplastin Time 35.9 Seconds (21.0-31.0)
[2020-08-13] MEDS ORDERED: HEPARIN IV BOLUS 3,000 UNITS in SYRINGE 0 ML IV STA (00:24)
[2020-08-13 03:14] LABS: Hematocrit (blood only) 25.5 % (42-52); Hemoglobin 8.7 g/dL (14.0-18.0); Mean Corpuscular Hemoglobin 26.9 pg (25-34); Mean Corpuscular Hgb Conc 34.1 g/dL (32-36); Mean Corpuscular Volume 78.7 fL (80-100); Mean Platelet Volume 10.7 fL (7.4-10.4); Platelet Count 459 K/uL (130-400); RDW Coefficient of Variation 14.9 % (11.5-14.5); RDW Standard Deviation 43.1 fL (36.4-46.3); Red Blood Count 3.24 M/uL (4.7-6.1); White Blood Count 20.66 K/uL (4.8-10.8)
[2020-08-13 03:32] LABS: BUN Creatinine Ratio 18.5 (10-20); Calcium 8.2 mg/dl (8.5-10.1); Creatinine Clr Calc Pharmacy 56.7 ml/min; Est GFR (African American) 63.9; Est GFR (Non-African American) 55.2; Magnesium 1.7 mg/dl (1.8-2.4); Potassium 2.7 mmol/L (3.5-5.1)
[2020-08-13 03:37] LABS: Troponin I 0.038 ng/ml (0-0.045)
[2020-08-13] MEDS ORDERED: POTASSIUM CHLORIDE 10 MEQ TABCR PO STA (04:04)
[2020-08-13] MEDS ORDERED: POTASSIUM CHLORIDE 40 MEQ in SODIUM CHLORIDE 0.9% 1000ML 1,000 ML IV ONE (04:06)
[2020-08-13] MEDS: MAGNESIUM SULFATE / D5W 1 GM/100 ML BAG IV SCH ×2 (05:17→09:18)
[2020-08-13] MEDS ORDERED: POTASSIUM CHLORIDE 10 MEQ TABCR PO ONE (06:00)
[2020-08-13 06:07] LABS: Estimated Average Glucose 223 mg/dl; Hemoglobin A1C 9.4 % (4.5-5.6)
[2020-08-13 07:15] LABS: Partial Thromboplastin Ratio 1.5; Partial Thromboplastin Time 40.7 Seconds (21.0-31.0)
[2020-08-13] MEDS ORDERED: cefTRIAXone SODIUM 1,000 MG in DEXTROSE 5% 50 ML IV SCH (08:30)
--- NOTE | 2020-08-13 09:15 | Hospitalist Progress Note ---
Date of Service August 13, 2020 Assessment & Plan (1) Atrial fibrillation, new onset: Present on admission with shortness of breath on exertion associated with palpitation EKG on admission showed A. fib with HR 97 Possible related to electrolyte imbalance due to diarrhea and acute infection with covid 19 Was started on a IV heparin drip in the ER due to high [id number] score Electrolytes replaced, will keep K above 4 and Mg above 2 Will get an echo Cardiology consulted Continue metoprolol 37.5 mg BID Consider to add a low dose IV lopressor PRN for HR above 120 Will monitor closely in tele Now pt hypotensive, tachycardic HR 120-140s Added digoxin pt received 0.5 mg IV w/ some improvement in HR cont. to closely monitor COVID 19 CXR showed no active disease in the chest on admission Denies any recent exposure to anyone testing positive with COVID 19 Recently discharged from [facility], about 10 days ago saturated well on RA on admission, now on 2L Not a candidate for dexametasone and remdesivir since his O2 saturation 94% on RA on admission Will place on isolation Will check Procalcitonin, Ferritin, ESR and CRP Elevated troponin Mostly related to Afib Troponin on admission 0.067 EKG showed no ischemic changes Will trend trop Already on Heparin drip for Afib currently denies any chest pain Follow up echo Continue aspirin, statin and metoprolol KENIA Possible related to dehydration due to diarrhea Creatinine on admission 1.66 (baseline 1.2-1.3) received IVF in the ER , will continue IV hydration Will avoid nephrotoxic agents Continue monitor BMP Cr now much improved 1.3 Electrolytes Imbalance Mg 1.3 and K 2.7 and Na 129 on admission Mg and K replaced Continue IVF Continue Monitor BMP Elevated WBC Possible related to +COVID 19 lactate normal and afebrile Will check Procalcitonin Start Abx given hypotension and significantly elevated WBC (likely 2/2 COVID and UTI) Continue monitor CBC Abnormal UA Denies any urinary symptoms UA positive for Leukocytes and bacteria Elevated WBC Urine culture posit. for bacterial growth, will start Abx DM type 2 uncontrolled DM, last Hba1c 11.6 on 06/26 Will hold oral diabetes med (metformin, trajenta and Januvia) Will continue lantus and add novolog sliding scale during the hospital course Continue monitor BS Dyslipidemia Recent lipid panel on 08/10 with Chol 99, HDL 32 and LDL 46 Continue statin stable L AKA fall precaution Consider PT/OT once symptoms improve DVT px on IV heparin drip CODE STATUS DNR as per pt wishes Disposition Will discharge once medically stable Contacted and updated pt's sister, who is very appreciative of updates. Also confirmed DNR/DNI status with pt and his sister over the phone. Admission and Anticipated Discharge Date Admission Date: August 12, 2020 Subjective Pt hypotensive and tachycardic. In the morning pt on room air but then requiring 2L of suppl. O2 via NC. He is awake and answers most questions appropriately. He is hard of hearing. Denies any chest pain or abd. pain. Review of Systems Review of Systems: All systems reviewed & are unremarkable except as noted in HPI & below Constitutional: no fever and no chills Respiratory: + cough and + dyspnea Cardiovascular: + chest pain (on and off) Gastrointestinal: no abdominal pain, no nausea and no vomiting Physical Exam Physical Exam: General- elderly male, +chronically ill appearing, laying in bed, +appears fatigued Head- atraumatic Eyes- PERRL, EOMI, ENT- decrease hearing Neck- supple, no JVD Lungs- clear to auscultation Heart- irregular rhythm, tachycardic Abdomen- normal bowel sounds, soft, nontender Extremities- no calf tenderness, L AKA Neuro- drowsy but oriented x 3; PERRL, EOMI; no facial palsy; no dysarthria Skin- warm & dry Results & Data Results & Data ([facility]) Vital Signs (Past 12 Hours) Vital Signs Temp Pulse Pulse Resp BP BP Pulse Ox 08/13/20 02:40 36.9 C 103 H 16 99/52 L 98 08/13/20 00:53 113 H 08/12/20 22:17 37.1 C 108 H 22 149/70 H 95 08/12/20 21:40 103 H 23 93 08/12/20 21:31 96 H 26 H 96 08/12/20 21:30 107 H 20 91/59 L 95 08/12/20 21:20 97 H 21 100 Laboratory Results 08/13/20 08/13/20 08/13/20 Range/Units 09:16 06:38 03:05 WBC (4.8-10.8) K/uL RBC (4.7-6.1) M/uL Hgb (14.0-18.0) g/dL Hct (42-52) % MCV (80-100) fL MCH (25-34) pg MCHC (32-36) g/dL RDW Std Deviation (36.4-46.3) fL RDW Coeff of [place]alle (11.5-14.5) % Plt Count (130-400) K/uL MPV (7.4-10.4) fL Immature Gran % (Auto) % Neut % (Auto) % Lymph % (Auto) % [place] % (Auto) % Eos % (Auto) % Baso % (Auto) % Neut # (Auto) (1.4-6.5) K/uL Lymph # (Auto) (1.2-3.4) K/uL [place] # (Auto) (0.11-0.59) K/uL Eos # (Auto) (0-0.5) K/uL Baso # (Auto) (0-0.2) K/uL Immature Gran # (Auto) (0.00-0.02) K/uL Echinocytes PT (9.0-12.0) Seconds INR (0.9-1.1) APTT 40.7 H (21.0-31.0) Seconds PTT Ratio 1.5 Sodium (136-145) mmol/L Potassium (3.5-5.1) mmol/L Chloride (98-107) mmol/L Carbon Dioxide (21-32) mmol/L Anion Gap (3-11) BUN (7-18) mg/dl Creatinine (0.6-1.4) mg/dl Est Cr Clr Drug Dosing ml/min Est GFR ( Amer) Est GFR (Non-Af Amer) BUN/Creatinine Ratio (10-20) Glucose (70-99) mg/dl POC Glucose 148 H (70-99) mg/dl Estimat Average Glucose 223 mg/dl Hemoglobin A1c 9.4 H (4.5-5.6) % Lactate (0.4-2.0) mmol/L Calcium (8.5-10.1) mg/dl Magnesium (1.8-2.4) mg/dl Total Bilirubin (0.2-1) mg/dl AST (15-37) U/L ALT (12-78) U/L Alkaline Phosphatase (45-117) U/L Troponin I (0-0.045) ng/ml Total Protein (6.4-8.2) gm/dl Albumin (3.4-5.0) gm/dl Globulin (2.5-4.0) gm/dl Albumin/Globulin Ratio (0.9-2) Procalcitonin (0-0.5) ng/ml Urine Color Urine Appearance (Clear) Urine pH (4.5-7.5) Ur Specific [place] (1.000-1.030) Urine Protein (Negative) Urine Glucose (UA) (Negative) Urine Ketones (Negative) Urine Blood (Negative) Urine Nitrite (Negative) Urine Bilirubin (Negative) Urine Urobilinogen (Negative) Ur Leukocyte Esterase (Negative) Urine WBC (Auto) (0-5) /hpf Urine RBC (Auto) (0-4) /hpf U Hyaline Cast (Auto) (0-5) /lpf U Epithel Cells (Auto) (0-5) /lpf Urine Bacteria (Auto) (Negative) Urine Yeast COVID-19 Eval Order COVID-19 PCR (Negative) Hepatitis C Ab Screen (Neg) 08/13/20 08/13/20 08/12/20 Range/Units 03:05 03:05 23:01 WBC 20.66 H (4.8-10.8) K/uL RBC 3.24 L (4.7-6.1) M/uL Hgb 8.7 L (14.0-18.0) g/dL Hct 25.5 L (42-52) % MCV 78.7 L (80-100) fL MCH 26.9 (25-34) pg MCHC 34.1 (32-36) g/dL RDW Std Deviation 43.1 (36.4-46.3) fL RDW Coeff of Halle 14.9 H (11.5-14.5) % Plt Count 459 H (130-400) K/uL MPV 10.7 H (7.4-10.4) fL Immature Gran % (Auto) % Neut % (Auto) % Lymph % (Auto) % [place] % (Auto) % Eos % (Auto) % Baso % (Auto) % Neut # (Auto) (1.4-6.5) K/uL Lymph # (Auto) (1.2-3.4) K/uL [place] # (Auto) (0.11-0.59) K/uL Eos # (Auto) (0-0.5) K/uL Baso # (Auto) (0-0.2) K/uL Immature Gran # (Auto) (0.00-0.02) K/uL Echinocytes PT (9.0-12.0) Seconds INR (0.9-1.1) APTT 35.9 H (21.0-31.0) Seconds PTT Ratio 1.3 Sodium 131 L (136-145) mmol/L Potassium 2.7 L (3.5-5.1) mmol/L Chloride 100 (98-107) mmol/L Carbon Dioxide 22 (21-32) mmol/L Anion Gap 9.0 (3-11) BUN 24 H (7-18) mg/dl Creatinine 1.31 D (0.6-1.4) mg/dl Est Cr Clr Drug Dosing 56.7 ml/min Est GFR ( Amer) 63.9 Est GFR (Non-Af Amer) 55.2 BUN/Creatinine Ratio 18.5 (10-20) Glucose 161 H (70-99) mg/dl POC Glucose (70-99) mg/dl Estimat Average Glucose mg/dl Hemoglobin A1c (4.5-5.6) % Lactate (0.4-2.0) mmol/L Calcium 8.2 L (8.5-10.1) mg/dl Magnesium 1.7 L (1.8-2.4) mg/dl Total Bilirubin (0.2-1) mg/dl AST (15-37) U/L ALT (12-78) U/L Alkaline Phosphatase (45-117) U/L Troponin I 0.038 (0-0.045) ng/ml Total Protein (6.4-8.2) gm/dl Albumin (3.4-5.0) gm/dl Globulin (2.5-4.0) gm/dl Albumin/Globulin Ratio (0.9-2) Procalcitonin (0-0.5) ng/ml Urine Color Urine Appearance (Clear) Urine pH (4.5-7.5) Ur Specific [place] (1.000-1.030) Urine Protein (Negative) Urine Glucose (UA) (Negative) Urine Ketones (Negative) Urine Blood (Negative) Urine Nitrite (Negative) Urine Bilirubin (Negative) Urine Urobilinogen (Negative) Ur Leukocyte Esterase (Negative) Urine WBC (Auto) (0-5) /hpf Urine RBC (Auto) (0-4) /hpf U Hyaline Cast (Auto) (0-5) /lpf U Epithel Cells (Auto) (0-5) /lpf Urine Bacteria (Auto) (Negative) Urine Yeast COVID-19 Eval Order COVID-19 PCR (Negative) Hepatitis C Ab Screen (Neg) 08/12/20 08/12/20 08/12/20 Range/Units 22:59 22:59 22:59 WBC (4.8-10.8) K/uL RBC (4.7-6.1) M/uL Hgb (14.0-18.0) g/dL Hct (42-52) % MCV (80-100) fL MCH (25-34) pg MCHC (32-36) g/dL RDW Std Deviation (36.4-46.3) fL RDW Coeff of Halle (11.5-14.5) % Plt Count (130-400) K/uL MPV (7.4-10.4) fL Immature Gran % (Auto) % Neut % (Auto) % Lymph % (Auto) % [place] % (Auto) % Eos % (Auto) % Baso % (Auto) % Neut # (Auto) (1.4-6.5) K/uL Lymph # (Auto) (1.2-3.4) K/uL [place] # (Auto) (0.11-0.59) K/uL Eos # (Auto) (0-0.5) K/uL Baso # (Auto) (0-0.2) K/uL Immature Gran # (Auto) (0.00-0.02) K/uL Echinocytes PT (9.0-12.0) Seconds INR (0.9-1.1) APTT (21.0-31.0) Seconds PTT Ratio Sodium (136-145) mmol/L Potassium (3.5-5.1) mmol/L Chloride (98-107) mmol/L Carbon Dioxide (21-32) mmol/L Anion Gap (3-11) BUN (7-18) mg/dl Creatinine (0.6-1.4) mg/dl Est Cr Clr Drug Dosing ml/min Est GFR ( Amer) Est GFR (Non-Af Amer) BUN/Creatinine Ratio (10-20) Glucose (70-99) mg/dl POC Glucose (70-99) mg/dl Estimat Average Glucose mg/dl Hemoglobin A1c (4.5-5.6) % Lactate (0.4-2.0) mmol/L Calcium (8.5-10.1) mg/dl Magnesium (1.8-2.4) mg/dl Total Bilirubin (0.2-1) mg/dl AST (15-37) U/L ALT (12-78) U/L Alkaline Phosphatase (45-117) U/L Troponin I 0.046 H* (0-0.045) ng/ml Total Protein (6.4-8.2) gm/dl Albumin (3.4-5.0) gm/dl Globulin (2.5-4.0) gm/dl Albumin/Globulin Ratio (0.9-2) Procalcitonin 0.50 (0-0.5) ng/ml Urine Color Urine Appearance (Clear) Urine pH (4.5-7.5) Ur Specific [place] (1.000-1.030) Urine Protein (Negative) Urine Glucose (UA) (Negative) Urine Ketones (Negative) Urine Blood (Negative) Urine Nitrite (Negative) Urine Bilirubin (Negative) Urine Urobilinogen (Negative) Ur Leukocyte Esterase (Negative) Urine WBC (Auto) (0-5) /hpf Urine RBC (Auto) (0-4) /hpf U Hyaline Cast (Auto) (0-5) /lpf U Epithel Cells (Auto) (0-5) /lpf Urine Bacteria (Auto) (Negative) Urine Yeast COVID-19 Eval Order COVID-19 PCR (Negative) Hepatitis C Ab Screen Neg (Neg) 08/12/20 08/12/20 08/12/20 Range/Units 22:28 17:33 17:14 WBC (4.8-10.8) K/uL RBC (4.7-6.1) M/uL Hgb (14.0-18.0) g/dL Hct (42-52) % MCV (80-100) fL MCH (25-34) pg MCHC (32-36) g/dL RDW Std Deviation (36.4-46.3) fL RDW Coeff of Halle (11.5-14.5) % Plt Count (130-400) K/uL MPV (7.4-10.4) fL Immature Gran % (Auto) % Neut % (Auto) % Lymph % (Auto) % [place] % (Auto) % Eos % (Auto) % Baso % (Auto) % Neut # (Auto) (1.4-6.5) K/uL Lymph # (Auto) (1.2-3.4) K/uL [place] # (Auto) (0.11-0.59) K/uL Eos # (Auto) (0-0.5) K/uL Baso # (Auto) (0-0.2) K/uL Immature Gran # (Auto) (0.00-0.02) K/uL Echinocytes PT (9.0-12.0) Seconds INR (0.9-1.1) APTT (21.0-31.0) Seconds PTT Ratio Sodium (136-145) mmol/L Potassium (3.5-5.1) mmol/L Chloride (98-107) mmol/L Carbon Dioxide (21-32) mmol/L Anion Gap (3-11) BUN (7-18) mg/dl Creatinine (0.6-1.4) mg/dl Est Cr Clr Drug Dosing ml/min Est GFR ( Amer) Est GFR (Non-Af Amer) BUN/Creatinine Ratio (10-20) Glucose (70-99) mg/dl POC Glucose 108 H (70-99) mg/dl Estimat Average Glucose mg/dl Hemoglobin A1c (4.5-5.6) % Lactate 1.9 (0.4-2.0) mmol/L Calcium (8.5-10.1) mg/dl Magnesium (1.8-2.4) mg/dl Total Bilirubin (0.2-1) mg/dl AST (15-37) U/L ALT (12-78) U/L Alkaline Phosphatase (45-117) U/L Troponin I (0-0.045) ng/ml Total Protein (6.4-8.2) gm/dl Albumin (3.4-5.0) gm/dl Globulin (2.5-4.0) gm/dl Albumin/Globulin Ratio (0.9-2) Procalcitonin (0-0.5) ng/ml Urine Color Urine Appearance (Clear) Urine pH (4.5-7.5) Ur Specific [place] (1.000-1.030) Urine Protein (Negative) Urine Glucose (UA) (Negative) Urine Ketones (Negative) Urine Blood (Negative) Urine Nitrite (Negative) Urine Bilirubin (Negative) Urine Urobilinogen (Negative) Ur Leukocyte Esterase (Negative) Urine WBC (Auto) (0-5) /hpf Urine RBC (Auto) (0-4) /hpf U Hyaline Cast (Auto) (0-5) /lpf U Epithel Cells (Auto) (0-5) /lpf Urine Bacteria (Auto) (Negative) Urine Yeast COVID-19 Eval Order COVID-19 PCR POSITIVE A* (Negative) Hepatitis C Ab Screen (Neg) 08/12/20 08/12/20 08/12/20 Range/Units 17:14 17:14 16:30 WBC (4.8-10.8) K/uL RBC (4.7-6.1) M/uL Hgb (14.0-18.0) g/dL Hct (42-52) % MCV (80-100) fL MCH (25-34) pg MCHC (32-36) g/dL RDW Std Deviation (36.4-46.3) fL RDW Coeff of Halle (11.5-14.5) % Plt Count (130-400) K/uL MPV (7.4-10.4) fL Immature Gran % (Auto) % Neut % (Auto) % Lymph % (Auto) % [place] % (Auto) % Eos % (Auto) % Baso % (Auto) % Neut # (Auto) (1.4-6.5) K/uL Lymph # (Auto) (1.2-3.4) K/uL [place] # (Auto) (0.11-0.59) K/uL Eos # (Auto) (0-0.5) K/uL Baso # (Auto) (0-0.2) K/uL Immature Gran # (Auto) (0.00-0.02) K/uL Echinocytes PT (9.0-12.0) Seconds INR (0.9-1.1) APTT (21.0-31.0) Seconds PTT Ratio Sodium (136-145) mmol/L Potassium (3.5-5.1) mmol/L Chloride (98-107) mmol/L Carbon Dioxide (21-32) mmol/L Anion Gap (3-11) BUN (7-18) mg/dl Creatinine (0.6-1.4) mg/dl Est Cr Clr Drug Dosing ml/min Est GFR ( Amer) Est GFR (Non-Af Amer) BUN/Creatinine Ratio (10-20) Glucose (70-99) mg/dl POC Glucose (70-99) mg/dl Estimat Average Glucose mg/dl Hemoglobin A1c (4.5-5.6) % Lactate (0.4-2.0) mmol/L Calcium (8.5-10.1) mg/dl Magnesium (1.8-2.4) mg/dl Total Bilirubin (0.2-1) mg/dl AST (15-37) U/L ALT (12-78) U/L Alkaline Phosphatase (45-117) U/L Troponin I (0-0.045) ng/ml Total Protein (6.4-8.2) gm/dl Albumin (3.4-5.0) gm/dl Globulin (2.5-4.0) gm/dl Albumin/Globulin Ratio (0.9-2) Procalcitonin (0-0.5) ng/ml Urine Color Yellow Urine Appearance Turbid A (Clear) Urine pH 5.5 (4.5-7.5) Ur Specific [place] 1.010 (1.000-1.030) Urine Protein 2+ H (Negative) Urine Glucose (UA) Trace H (Negative) Urine Ketones Trace H (Negative) Urine Blood 2+ H (Negative) Urine Nitrite Negative (Negative) Urine Bilirubin Negative (Negative) Urine Urobilinogen Negative (Negative) Ur Leukocyte Esterase 3+ H (Negative) Urine WBC (Auto) >30 H (0-5) /hpf Urine RBC (Auto) 0-4 (0-4) /hpf U Hyaline Cast (Auto) 1-5 (0-5) /lpf U Epithel Cells (Auto) 20-30 H (0-5) /lpf Urine Bacteria (Auto) 1+ H (Negative) Urine Yeast Not Reportable COVID-19 Eval Order Covid19 Done at [facility] Cancelled COVID-19 PCR (Negative) Hepatitis C Ab Screen (Neg) 08/12/20 08/12/20 08/12/20 Range/Units 14:30 14:30 14:30 WBC 23.58 H (4.8-10.8) K/uL RBC 3.85 L (4.7-6.1) M/uL Hgb 10.3 L (14.0-18.0) g/dL Hct 29.8 L (42-52) % MCV 77.4 L (80-100) fL MCH 26.8 (25-34) pg MCHC 34.6 (32-36) g/dL RDW Std Deviation 42.4 (36.4-46.3) fL RDW Coeff of Halle 14.9 H (11.5-14.5) % Plt Count 505 H (130-400) K/uL MPV 11.7 H (7.4-10.4) fL Immature Gran % (Auto) 0.4 % Neut % (Auto) 89.5 % Lymph % (Auto) 2.9 % [place] % (Auto) 7.2 % Eos % (Auto) 0.0 % Baso % (Auto) 0.0 % Neut # (Auto) 21.09 H (1.4-6.5) K/uL Lymph # (Auto) 0.69 L (1.2-3.4) K/uL [place] # (Auto) 1.70 H (0.11-0.59) K/uL Eos # (Auto) 0.00 (0-0.5) K/uL Baso # (Auto) 0.01 (0-0.2) K/uL Immature Gran # (Auto) 0.09 H (0.00-0.02) K/uL Echinocytes 1+ PT 11.9 (9.0-12.0) Seconds INR 1.1 (0.9-1.1) APTT 31.0 (21.0-31.0) Seconds PTT Ratio 1.1 Sodium 129 L (136-145) mmol/L Potassium 2.7 L (3.5-5.1) mmol/L Chloride 95 L (98-107) mmol/L Carbon Dioxide 20 L (21-32) mmol/L Anion Gap 14.0 H (3-11) BUN 23 H (7-18) mg/dl Creatinine 1.69 H (0.6-1.4) mg/dl Est Cr Clr Drug Dosing 48.1 ml/min Est GFR ( Amer) 47.0 Est GFR (Non-Af Amer) 40.5 BUN/Creatinine Ratio 13.7 (10-20) Glucose 195 H (70-99) mg/dl POC Glucose (70-99) mg/dl Estimat Average Glucose mg/dl Hemoglobin A1c (4.5-5.6) % Lactate (0.4-2.0) mmol/L Calcium 9.1 (8.5-10.1) mg/dl Magnesium 1.3 L (1.8-2.4) mg/dl Total Bilirubin 0.6 (0.2-1) mg/dl AST 35 (15-37) U/L ALT 22 (12-78) U/L Alkaline Phosphatase 99 (45-117) U/L Troponin I 0.067 H* (0-0.045) ng/ml Total Protein 8.1 (6.4-8.2) gm/dl Albumin 2.9 L (3.4-5.0) gm/dl Globulin 5.2 H (2.5-4.0) gm/dl Albumin/Globulin Ratio 0.6 L (0.9-2) Procalcitonin (0-0.5) ng/ml Urine Color Urine Appearance (Clear) Urine pH (4.5-7.5) Ur Specific [place] (1.000-1.030) Urine Protein (Negative) Urine Glucose (UA) (Negative) Urine Ketones (Negative) Urine Blood (Negative) Urine Nitrite (Negative) Urine Bilirubin (Negative) Urine Urobilinogen (Negative) Ur Leukocyte Esterase (Negative) Urine WBC (Auto) (0-5) /hpf Urine RBC (Auto) (0-4) /hpf U Hyaline Cast (Auto) (0-5) /lpf U Epithel Cells (Auto) (0-5) /lpf Urine Bacteria (Auto) (Negative) Urine Yeast COVID-19 Eval Order COVID-19 PCR (Negative) Hepatitis C Ab Screen (Neg)
[2020-08-13] MEDS: PREGABALIN 100 MG CAP PO SCH ×3 (09:20→20:29)
[2020-08-13] MEDS: MoRPHine SULFATE IR 15 MG TAB (IMMEDIATE RELEASE) PO SCH ×2 (09:20→20:29)
[2020-08-13] MEDS: MAGNESIUM OXIDE 400 MG TAB PO SCH (09:20)
[2020-08-13] MEDS: FINASTERIDE 5 MG TAB PO SCH (09:21)
[2020-08-13] MEDS: ROSUVASTATIN CALCIUM 20 MG TAB PO SCH (09:21)
[2020-08-13] MEDS: TOPIRAMATE 25 MG TAB PO SCH ×2 (09:21→20:30)
[2020-08-13] MEDS: CYANOCOBALAMIN 500 MCG TABLET (VITAMIN B-12) PO SCH (09:21)
[2020-08-13] MEDS: CHOLECALCIFEROL 1,000 UNITS 25 MCG TAB PO SCH (09:21)
[2020-08-13] MEDS: PANTOprazole 40 MG TAB PO SCH (09:21)
[2020-08-13] MEDS: ASPIRIN 81 MG ECTAB PO SCH (09:21)
[2020-08-13] MEDS: METOPROLOL TARTRATE 25 MG TAB PO SCH ×2 (09:22→20:29)
[2020-08-13] MEDS: INSULIN ASPART 100 UNITS/ML 3 ML PEN SC SCH ×4 (09:22→21:11)
[2020-08-13] MEDS: cefTRIAXone SODIUM 2,000 MG in DEXTROSE 5% 50 ML IV SCH (09:23)
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
[2020-08-13] MEDS ORDERED: PHARMACY GLYCEMIC MGMT CONSULT SCH (11:20)
--- NOTE | 2020-08-13 11:45 | Pharmacy Report ---
Glycemic Control Consultation - Date of Service August 13, 2020 - Scope Scope: Glycemic Pharmacist consulted for glycemic control and to write orders per [facility] inpatient glycemic control protocol. - Objective Weight: 85.5 kg Accoctavioecktish BSG (last 24hrs): 08/12/20 08/12/20 08/13/20 14:30 22:28 03:05 Glucose 195 H 161 H POC Glucose 108 H 08/13/20 09:16 Glucose POC Glucose 148 H Laboratory Data (last 24hrs): 08/12/20 08/13/20 14:30 03:05 Potassium 2.7 L 2.7 L Carbon Dioxide 20 L 22 Anion Gap 14.0 H 9.0 Creatinine 1.69 H 1.31 D Est Cr Clr Drug Dosing 48.1 56.7 HbA1c: Hemoglobin A1c 9.4 % (4.5-5.6) H 08/13/20 03:05 - Recent Pertinent Medications Outpatient Anti-diabetic Regimen: * Insulin glargine 20 units SQ Daily * Januvia 100mg PO Daily * Linagliptin 5mg PO Daily * A1c = 9.4 % 08/13/20 The patient is currently receiving: * Basal insulin: none ordered * Correctional Insulin: Novolog Correction per scale ACHS Goal Range: Low 140 mg/dL - High 180 mg/dL Correction Factor: 45 mg/dL/unit * Prandial insulin: Per carb ratio of 1 unit per 16 grams CHO consumed * Oral Agents: on hold Risk Factors for Insulin Resistance: * Infection: IV ceftriaxone * IVF: Heparin drip in dextrose * Diet: Type 2 DM - Assessment & Plan Assessment & Plan: ASSESSMENT: * 70 year old male, PMH of uncontrolled diabetes type 2, KEMI, BPH, chronic pain, left knee AKA, HTN, dyslipidemia, CAD s/p CABG, diabetic neuropathy presented to the ER with CP, SOB, new onset AFib, COVID19 +. * Patient managed on orals and insulin as outpatient, uncontrolled. * Oral agents are not recommended for inpatient use d/t drug interactions, changing PO intake, and difficulty titrating for acute hyper/hypoglycemia. ADA recommends re-initiating outpatient oral agents 1-2 days prior to discharge if/when appropriate if they were held on admission. * Will use home dose of basal insulin and CF/CR for prandial coverage and titrate dosing to goal. * ADA & AACE recommend a goal blood sugar range 140-180 mg/dl for the majority of critically ill & non-critically ill patients. However, more stringent targets may be selected in individual cases. Will utilize more stringent goal of 110-140mg/dl based on patient age & comorbidities. Additionally, tighter glycemic control is warranted to facilitate wound/infection healing. PLAN FOR INPATIENT GLYCEMIC CONTROL: * Holding outpatient oral diabetes medications * Basal insulin * Lantus 20 units SQ daily * Bolus insulin * NovoLog per scale ACHS or Q6hrs while NPO * Goal Range: Low 110 mg/dL - High 140 mg/dL * Correction Factor: 25 mg/dL/unit * Nutritional / Prandial insulin per carb ratio of 1 unit per 9 grams CHO c onsumed * Please note that the plan above was derived based on current level of insulin resistance and hospital stress. These recommendations are appropriate for inpatient admission only. Plan of care upon discharge will need to be reassessed to avoid potential outpatient hypo/hyperglycemia. Thank you.
[2020-08-13] MEDS ORDERED: SODIUM CHLORIDE 0.9% 1000ML 500 ML IV ONE ×2 (12:09→13:37)
[2020-08-13] MEDS ORDERED: VANCOMYCIN CONSULT ACTIVE PRN (12:13)
[2020-08-13] MEDS ORDERED: VANCOMYCIN HCL 2,000 MG in SODIUM CHLORIDE 0.9% 500 ML IV ONE (12:30)
[2020-08-13] MEDS: INSULIN GLARGINE SOLOSTAR 100 UNITS/ML 3 ML PEN SC SCH (12:54)
[2020-08-13] MEDS: metroNIDAZOLE 500 MG/100 ML BAG IV SCH ×2 (13:31→22:12)
[2020-08-13 13:40] LABS: BUN Creatinine Ratio 16.9 (10-20); Calcium 7.8 mg/dl (8.5-10.1); Est GFR (African American) 61.6; Est GFR (Non-African American) 53.2; Magnesium 2.1 mg/dl (1.8-2.4); Potassium 3.8 mmol/L (3.5-5.1)
[2020-08-13 13:53] LABS: Phosphorus 1.5 mg/dl (2.5-4.9)
[2020-08-13] MEDS ORDERED: SODIUM PHOSPHATE 3 MMOL/1 ML INFUSION IV STA (14:15)
--- NOTE | 2020-08-13 14:20 | XRay Report ---
XR chest 1V portable CLINICAL HISTORY: Shortness of breath. Increasing oxygen requirements. COMPARISON STUDY: 08/12/2020 FINDINGS: There are postsurgical changes of midline sternotomy. The heart is enlarged. There are deve loping bilateral pulmonary airspace opacities left greater than right, suspicious for a multifocal pn eumonitis.[ IMPRESSION: Interval development of asymmetric bilateral pulmonary airspace opacities, suspicious for a multifocal pneumonitis. ACT 112: Negative or not required by law. Electronically signed by: Demarcus Zamora M.D. 08/13/2020 2:19 PM
[2020-08-13] MEDS: ALBUMIN 25% 12.5 GM/50 ML VIAL IV SCH ×2 (14:25→14:41)
[2020-08-13] MEDS ORDERED: SODIUM PHOSPHATE 21 MMOL in SODIUM CHLORIDE 0.9% 500 ML IV ONE (14:30)
--- NOTE | 2020-08-13 14:35 | Pharmacy Report ---
Pharmacy Abx Dose Short Note - Date of Service August 13, 2020 - Assessment & Plan Assessment 70 year old M admitted on 08/12/20 with SOB on exertion, afib, COVID 19 positive, KENIA, and elevated WBC. History of DM and left AKA. Pt discharged from [facility] ~10 days ago. Pharmacy consulted to dose vancomycin empirically. Day # 1 of antimicrobial therapy. * Streptococcus growing in urine. Culture still pending. * Blood cultures pending. * MRSA nasal swab negative. Plan Vancomycin for empiric indication Vancomycin IV * Estimated PK Parameters: Vd 0.7 L/kg, Randall 0.046 hr-1, t1/2 15 hr * PK parameters based on CrCl with IBW adjusted for amputation. * Loading dose: 2000 mg (23 mg/kg) * Maintenance dose: 1250 mg IV (14.6 mg/kg) every 18 hours * Goal trough level : 15 to 20 mcg/mL * Trough to be ordered for 08/16 @0730 if therapy extended beyond 48 hours. Pt also on Rocephin 2gm [id number] and Flagyl 500mg q8h. Rocephin will cover streptococcus species in urine. Pharmacy will continue to follow and will adjust dose/frequency as necessary. Thank you.
[2020-08-13 15:08] LABS: Hematocrit (blood only) 24.2 % (42-52); Hemoglobin 8.1 g/dL (14.0-18.0)
[2020-08-13 15:29] LABS: Partial Thromboplastin Ratio 1.6
[2020-08-13] MEDS: HEPARIN SODIUM/DEXTROSE 25,000 UNITS/500 ML BAG IV SCH ×2 (15:54→18:33)
--- NOTE | 2020-08-13 16:28 | Hospitalist Progress Note ---
Date of Service August 13, 2020 Assessment & Plan Admission and Anticipated Discharge Date Admission Date: August 12, 2020 Subjective Contacted patient's sister, who is the primary contact listed in our chart. She was updated over the phone, however she also mentions that she was not able to find out more about pt's clinical status because she does not have a password. She was little frustrated as she is the one to pick the pt up after discharge. His is currently in [place], per nursing staff, patient's was updated by nursing staff. Patient's sister will be updating patient's further. Will contact administration, so sister can also call the hospital and be updated. Results & Data Results & Data ([facility]) Vital Signs (Past 12 Hours) Vital Signs Temp Pulse Pulse Resp BP Pulse Ox 08/13/20 14:36 95 H 16 95/47 L 97 08/13/20 14:22 80/52 L 08/13/20 13:16 101 H 16 87/49 L 99 08/13/20 12:23 107 H 92/58 L 98 08/13/20 12:03 121 H 16 110/69 93 08/13/20 11:49 36.7 C 123 H 17 88/53 L 94 08/13/20 11:17 104 H 08/13/20 09:24 36.8 C 98 H 17 121/63 100
--- NOTE | 2020-08-13 16:33 | XRay Report ---
XR KUB/Abdomen 1 view CLINICAL HISTORY: Abdominal pain, hypotension COMPARISON STUDY: No previous studies for comparison. FINDINGS: There is no pathologic bowel dilatation. There are no calcifications suspicious for renal c alculi. IMPRESSION: Nonobstructive bowel gas pattern. ACT 112: Negative or not required by law. Electronically signed by: Demarcus Zamora M.D. 08/13/2020 4:32 PM
[2020-08-13 16:34] LABS: Partial Thromboplastin Time 45.4 Seconds (21.0-31.0)
[2020-08-13] MEDS ORDERED: DIGOXIN 250 MCG in SYRINGE 9 ML IV ONE ×2 (17:15→18:45)
[2020-08-13] MEDS: DULoxetine HCL 60 MG CAP PO SCH (20:31)
[2020-08-13] MEDS: CYCLOBENZAPRINE HCL 10 MG TAB PO SCH (20:31)
[2020-08-13] MEDS: DULoxetine HCL 30 MG CAP PO SCH (20:31)
[2020-08-14 00:22] LABS: Partial Thromboplastin Ratio 1.8
[2020-08-14 00:33] LABS: Partial Thromboplastin Time 49.2 Seconds (21.0-31.0)
[2020-08-14] MEDS ORDERED: VANCOMYCIN HCL 1,250 MG in SODIUM CHLORIDE 0.9% 250 ML IV SCH (02:00)
[2020-08-14] MEDS: metroNIDAZOLE 500 MG/100 ML BAG IV SCH ×3 (05:57→21:14)
[2020-08-14] MEDS: ASPIRIN 81 MG ECTAB PO SCH (08:33)
[2020-08-14] MEDS: ROSUVASTATIN CALCIUM 20 MG TAB PO SCH (08:33)
[2020-08-14] MEDS: METOPROLOL TARTRATE 25 MG TAB PO SCH ×2 (08:34→21:03)
[2020-08-14] MEDS: MAGNESIUM OXIDE 400 MG TAB PO SCH (08:35)
[2020-08-14] MEDS: PANTOprazole 40 MG TAB PO SCH (08:35)
[2020-08-14] MEDS: FINASTERIDE 5 MG TAB PO SCH (08:35)
[2020-08-14] MEDS: CHOLECALCIFEROL 1,000 UNITS 25 MCG TAB PO SCH (08:36)
[2020-08-14] MEDS: TOPIRAMATE 25 MG TAB PO SCH ×2 (08:36→21:04)
[2020-08-14] MEDS: CYANOCOBALAMIN 500 MCG TABLET (VITAMIN B-12) PO SCH (08:36)
[2020-08-14 08:42] LABS: Partial Thromboplastin Ratio 1.8
[2020-08-14 08:48] LABS: Partial Thromboplastin Time 48.9 Seconds (21.0-31.0)
[2020-08-14] MEDS: INSULIN ASPART 100 UNITS/ML 3 ML PEN SC SCH ×4 (08:50→21:59)
[2020-08-14] MEDS: INSULIN GLARGINE SOLOSTAR 100 UNITS/ML 3 ML PEN SC SCH (08:51)
[2020-08-14 08:54] LABS: BUN Creatinine Ratio 15.7 (10-20); Calcium 8.2 mg/dl (8.5-10.1); Creatinine Clr Calc Pharmacy 60.9 ml/min; Est GFR (African American) 69.7; Est GFR (Non-African American) 60.1; Magnesium 1.8 mg/dl (1.8-2.4); Potassium 3.7 mmol/L (3.5-5.1)
[2020-08-14] MEDS: MoRPHine SULFATE IR 15 MG TAB (IMMEDIATE RELEASE) PO SCH ×2 (08:58→21:02)
[2020-08-14] MEDS: PREGABALIN 100 MG CAP PO SCH ×3 (08:58→21:02)
[2020-08-14] MEDS: cefTRIAXone SODIUM 2,000 MG in DEXTROSE 5% 50 ML IV SCH (08:59)
[2020-08-14 09:01] LABS: Phosphorus 2.3 mg/dl (2.5-4.9)
[2020-08-14] MEDS: HEPARIN SODIUM/DEXTROSE 25,000 UNITS/500 ML BAG IV SCH (09:05)
[2020-08-14] MEDS ORDERED: POTASSIUM CHLORIDE CRTAB 20 MEQ TABCR PO STA (09:11)
[2020-08-14 09:46] LABS: Hematocrit (blood only) 24.8 % (42-52); Mean Corpuscular Hgb Conc 32.3 g/dL (32-36); Mean Corpuscular Volume 83.8 fL (80-100); Mean Platelet Volume 11.1 fL (7.4-10.4); Platelet Count 485 K/uL (130-400); RDW Coefficient of Variation 15.9 % (11.5-14.5); Red Blood Count 2.96 M/uL (4.7-6.1); White Blood Count 17.54 K/uL (4.8-10.8)
[2020-08-14] MEDS ORDERED: REMDESIVIR 200 MG in SODIUM CHLORIDE 0.9% 210 ML IV ONE (11:00)
[2020-08-14] MEDS: PANTOprazole 40 MG in SYRINGE 0 ML IV SCH ×2 (11:43→21:03)
[2020-08-14] MEDS: DOXYCYCLINE HYCLATE 100 MG in DEXTROSE 5% 100 ML IV SCH (11:44)
[2020-08-14] MEDS: dexAMETHasone 6 MG in SYRINGE 0 ML IV SCH (11:44)
[2020-08-14] MEDS: INSULIN HUMAN NPH SC SCH (12:24)
[2020-08-14] MEDS ORDERED: SODIUM CHLORIDE 0.9% 10ML FLUSH IV SCH (13:15)
--- NOTE | 2020-08-14 13:26 | Pharmacy Report ---
Pharmacy Glycemic Short Note 2 - Date of Service August 14, 2020 - Glycemic Short BSG Results (Last 24 hours): 08/13/20 08/13/20 08/13/20 12:53 16:29 20:14 Glucose 268 H POC Glucose 195 H 138 H 08/14/20 08/14/20 08/14/20 07:07 07:27 11:06 Glucose 131 H POC Glucose 146 H 239 H OUTPATIENT ANTIDIABETIC REGIMEN: * Insulin Glargine 20 units SQ QAM * Januvia 100mg PO Daily * Linagliptin 5mg PO Daily ASSESSMENT: 08/14/20 * Blood sugars were at goal, but patient started on IV Remdesivir and IV Dexamethasone today for decrease oxygenation, will add NPH to cover steroid effects at this time. * Fasting BSG 146mg/dl, continue lantus dose. * Blood sugars rising some with meals, and steroids added, will tighten CF and CR at this time. * Patient remains on heparin drip, IV ceftriaxone, metronidazole, IV Vancomycin changed to IV Doxycycline. 08/13/20 * 70 year old male, PMH of uncontrolled diabetes type 2, KEMI, BPH, chronic pain, left knee AKA, HTN, dyslipidemia, CAD s/p CABG, diabetic neuropathy presented to the ER with CP, SOB, new onset AFib, COVID19 +. * Patient managed on orals and insulin as outpatient, uncontrolled. * Oral agents are not recommended for inpatient use d/t drug interactions, c hanging PO intake, and difficulty titrating for acute hyper/hypoglycemia. ADA recommends re-initiating outpatient oral agents 1-2 days prior to discharge if/when appropriate if they were held on admission. * Will use home dose of basal insulin and CF/CR for prandial coverage and titrate dosing to goal. * ADA & AACE recommend a goal blood sugar range 140-180 mg/dl for the majority of critically ill & non-critically ill patients. However, more stringent targets may be selected in individual cases. Will utilize more stringent goal of 110-140mg/dl based on patient age & comorbidities. Additionally, tighter glycemic control is warranted to facilitate wound/infection healing. PLAN FOR INPATIENT GLYCEMIC CONTROL: * Hold outpatient oral diabetes medications * Basal insulin * Lantus 20 units SQ daily * ADD NPH 30 units SQ Daily with IV Dexamethasone * Bolus insulin * NovoLog per scale ACHS or Q6hrs while NPO * Goal Range: Low 110 mg/dL - High 140 mg/dL * tighten: Correction Factor: 15 mg/dL/unit * tighten: Nutritional / Prandial insulin per carb ratio of 1 unit per 5 grams CHO consumed PLAN FOR DISCHARGE: * to be determined
[2020-08-14] MEDS: SODIUM CHLORIDE 0.9% 10ML FLUSH IV SCH (14:02)
[2020-08-14] MEDS ORDERED: INSULIN HUMAN REGULAR PER UNIT 8 UNITS in SYRINGE 7.92 ML IV ONE (17:30)
[2020-08-14 17:36] LABS: Hematocrit (blood only) 25.1 % (42-52); Hemoglobin 8.2 g/dL (14.0-18.0)
[2020-08-14] MEDS: AMPICILLIN/SULBACTAM SOD 3,000 MG in 0.9 % SODIUM CHLORIDE 100 ML IV SCH ×2 (17:39→21:09)
--- NOTE | 2020-08-14 19:54 | Hospitalist Progress Note ---
Date of Service August 14, 2020 Assessment & Plan (1) Atrial fibrillation, new onset: Present on admission with shortness of breath on exertion associated with palpitation EKG on admission showed A. fib with HR 97 Possible related to electrolyte imbalance due to diarrhea and acute infection with covid 19 Was started on a IV heparin drip in the ER due to high [id number] score Electrolytes replaced, will keep K above 4 and Mg above 2 Will get an echo Cardiology consulted Continued metoprolol 37.5 mg BID -> switched to 25 BID w/ digoxin d/t hypotension Consider to add a low dose IV lopressor PRN for HR above 120 Will monitor closely in tele Pt was hypotensive, tachycardic HR 120-140s Added digoxin pt received 0.5 mg IV w/ some improvement in HR cont. to closely monitor COVID 19 CXR showed no active disease in the chest on admission Denies any recent exposure to anyone testing positive with COVID 19 Recently discharged from [facility], about 10 days ago saturated well on RA on admission, now on 2L Not a candidate for dexametasone and remdesivir since his O2 saturation 94% on RA on admission Started ceftriaxone and doxy, but given urine cultx, will switch ceft to unasyn Will place on isolation Will check Procalcitonin, Ferritin, ESR and CRP Now pt requires O2, dexamethasone and remdesavir started (08/14) Elevated troponin Mostly related to Afib Troponin on admission 0.067 EKG showed no ischemic changes Will trend trop Already on Heparin drip for Afib currently denies any chest pain Follow up echo Continue aspirin, statin and metoprolol KENIA Possible related to dehydration due to diarrhea Creatinine on admission 1.66 (baseline 1.2-1.3) received IVF in the ER , will continue IV hydration Will avoid nephrotoxic agents Continue monitor BMP Cr now much improved 1.3 Electrolytes Imbalance Mg 1.3 and K 2.7 and Na 129 on admission Mg and K replaced Continue IVF Continue Monitor BMP Elevated WBC Possible related to +COVID 19 lactate normal and afebrile Will check Procalcitonin Start Abx given hypotension and significantly elevated WBC (likely 2/2 COVID and UTI) Continue monitor CBC UTI UA positive for Leukocytes and bacteria Elevated WBC Pt reports lower abd. pain, mostly LLQ Urine culture posit. for bacterial growth, will start Abx Switch ceftriaxone to Unasyn given urine cultx (08/14) LLQ abd. pain - in the setting of anemia - also hx of diarrhea priot to admission - will obtain CT abdomen/pelvis Anemia - initial Hgb 11, now about 8 - pt was given IVF -FOBT ordered - will obtain CT abd.pelvis to r/o any bleed DM type 2 uncontrolled DM, last Hba1c 11.6 on 06/26 Will hold oral diabetes med (metformin, trajenta and Januvia) Will continue lantus and add novolog sliding scale during the hospital course Continue monitor BS Dyslipidemia Recent lipid panel on 08/10 with Chol 99, HDL 32 and LDL 46 Continue statin stable L AKA fall precaution Consider PT/OT once symptoms improve DVT px on IV heparin drip CODE STATUS DNR as per pt wishes Disposition Will discharge once medically stable Contacted and updated pt's sister, who is very appreciative of updates. Also confirmed DNR/DNI status with pt and his sister over the phone. Admission and Anticipated Discharge Date Admission Date: August 12, 2020 Subjective Patient is lying in bed, in no acute distress. He is more alert today. Reports left lower quadrant abdominal discomfort. Denies chest pain. Review of Systems Review of Systems: All systems reviewed & are unremarkable except as noted in HPI & below Constitutional: no fever and no chills Respiratory: + cough and + dyspnea Cardiovascular: no chest pain Gastrointestinal: + abdominal pain (LLQ) Physical Exam Physical Exam: General- elderly male, +chronically ill appearing, laying in bed, +appears fatigued Head- atraumatic Eyes- PERRL, EOMI, ENT- decrease hearing Neck- supple, no JVD Lungs- clear to auscultation b/l Heart- irregular rhythm, tachycardic Abdomen- normal bowel sounds, soft, nontender Extremities- no calf tenderness, L AKA Neuro- alert and oriented x 3; PERRL, EOMI; no facial palsy; no dysarthria Skin- warm & dry Results & Data Results & Data ([facility]) Vital Signs (Past 12 Hours) Vital Signs Temp Pulse Resp BP BP Pulse Ox 08/14/20 16:39 36.4 C L 84 20 93/57 L 98 08/14/20 12:03 37.6 C H 87 18 117/80 90 08/14/20 11:59 36.6 C 84 20 115/55 L 100 08/14/20 07:57 36.9 C 92 H 22 102/61 98 Laboratory Results 08/14/20 08/14/20 08/14/20 Range/Units 17:08 16:37 16:35 WBC (4.8-10.8) K/uL RBC (4.7-6.1) M/uL Hgb 8.2 L (14.0-18.0) g/dL Hct 25.1 L (42-52) % MCV (80-100) fL MCH (25-34) pg MCHC (32-36) g/dL RDW Std Deviation (36.4-46.3) fL RDW Coeff of Halle (11.5-14.5) % Plt Count (130-400) K/uL MPV (7.4-10.4) fL APTT (21.0-31.0) Seconds PTT Ratio Sodium (136-145) mmol/L Potassium (3.5-5.1) mmol/L Chloride (98-107) mmol/L Carbon Dioxide (21-32) mmol/L Anion Gap (3-11) BUN (7-18) mg/dl Creatinine (0.6-1.4) mg/dl Est Cr Clr Drug Dosing ml/min Est GFR ( Amer) Est GFR (Non-Af Amer) BUN/Creatinine Ratio (10-20) Glucose (70-99) mg/dl POC Glucose 366 H* 358 H* (70-99) mg/dl Calcium (8.5-10.1) mg/dl Phosphorus (2.5-4.9) mg/dl Magnesium (1.8-2.4) mg/dl 08/14/20 08/14/20 08/14/20 Range/Units 11:06 07:49 07:49 WBC 17.54 H (4.8-10.8) K/uL RBC 2.96 L (4.7-6.1) M/uL Hgb 8.0 L (14.0-18.0) g/dL Hct 24.8 L (42-52) % MCV 83.8 D (80-100) fL MCH 27.0 (25-34) pg MCHC 32.3 (32-36) g/dL RDW Std Deviation 47.0 H (36.4-46.3) fL RDW Coeff of Halle 15.9 H (11.5-14.5) % Plt Count 485 H (130-400) K/uL MPV 11.1 H (7.4-10.4) fL APTT 48.9 H* (21.0-31.0) Seconds PTT Ratio 1.8 Sodium (136-145) mmol/L Potassium (3.5-5.1) mmol/L Chloride (98-107) mmol/L Carbon Dioxide (21-32) mmol/L Anion Gap (3-11) BUN (7-18) mg/dl Creatinine (0.6-1.4) mg/dl Est Cr Clr Drug Dosing ml/min Est GFR ( Amer) Est GFR (Non-Af Amer) BUN/Creatinine Ratio (-20) Glucose (70-99) mg/dl POC Glucose 239 H (70-99) mg/dl Calcium (8.5-10.1) mg/dl Phosphorus (2.5-4.9) mg/dl Magnesium (1.8-2.4) mg/dl 08/14/20 08/14/20 08/13/20 Range/Units 07:27 07:07 23:32 WBC (4.8-10.8) K/uL RBC (4.7-6.1) M/uL Hgb (14.0-18.0) g/dL Hct (42-52) % MCV (80-100) fL MCH (25-34) pg MCHC (32-36) g/dL RDW Std Deviation (36.4-46.3) fL RDW Coeff of Halle (11.5-14.5) % Plt Count (130-400) K/uL MPV (7.4-10.4) fL APTT 49.2 H* (21.0-31.0) Seconds PTT Ratio 1.8 Sodium 138 (136-145) mmol/L Potassium 3.7 (3.5-5.1) mmol/L Chloride 109 H (98-107) mmol/L Carbon Dioxide 19 L (21-32) mmol/L Anion Gap 10.0 (3-11) BUN 19 H (7-18) mg/dl Creatinine 1.22 (0.6-1.4) mg/dl Est Cr Clr Drug Dosing 60.9 ml/min Est GFR ( Amer) 69.7 Est GFR (Non-Af Amer) 60.1 BUN/Creatinine Ratio 15.7 (10-20) Glucose 131 H (70-99) mg/dl POC Glucose 146 H (70-99) mg/dl Calcium 8.2 L (8.5-10.1) mg/dl Phosphorus 2.3 L (2.5-4.9) mg/dl Magnesium 1.8 (1.8-2.4) mg/dl 08/13/20 Range/Units 20:14 WBC (4.8-10.8) K/uL RBC (4.7-6.1) M/uL Hgb (14.0-18.0) g/dL Hct (42-52) % MCV (80-100) fL MCH (25-34) pg MCHC (32-36) g/dL RDW Std Deviation (36.4-46.3) fL RDW Coeff of Halle (11.5-14.5) % Plt Count (130-400) K/uL MPV (7.4-10.4) fL APTT (21.0-31.0) Seconds PTT Ratio Sodium (136-145) mmol/L Potassium (3.5-5.1) mmol/L Chloride (98-107) mmol/L Carbon Dioxide (21-32) mmol/L Anion Gap (3-11) BUN (7-18) mg/dl Creatinine (0.6-1.4) mg/dl Est Cr Clr Drug Dosing ml/min Est GFR ( Amer) Est GFR (Non-Af Amer) BUN/Creatinine Ratio (10-20) Glucose (70-99) mg/dl POC Glucose 138 H (70-99) mg/dl Calcium (8.5-10.1) mg/dl Phosphorus (2.5-4.9) mg/dl Magnesium (1.8-2.4) mg/dl Medications Administered Current Inpatient Medications Acetaminophen (Acetaminophen 325 Mg Tab) 325 mg PO Q6H PRN PRN Reason: Pain Stop: 09/11/20 22:15 Albuterol (Albuterol Hfa 8 Gm Inhaler) 2 puffs INH Q6H PRN PRN Reason: Shortness Of Breath Stop: 09/11/20 22:15 Aspirin (Aspirin 81 Mg Ectab) 81 mg PO DAILY [facility] Stop: 09/12/20 08:59 Last Admin: 08/14/20 08:33 Dose: 81 mg Documented by: Cyanocobalamin (Cyanocobalamin 500 Mcg Tablet (Vitamin B-12)) 1,000 mcg PO DAILY SKYE Stop: 09/12/20 08:59 Last Admin: 08/14/20 08:36 Dose: 1,000 mcg Documented by: Cyclobenzaprine HCl (Cyclobenzaprine Hcl 10 Mg Tab) 10 mg PO HS [facility] Stop: 09/11/20 22:59 Last Admin: 08/13/20 20:31 Dose: 10 mg Documented by: Dextrose (Dextrose 50% 50 Ml Syringe) 25 - 50 ml IV UD PRN; Protocol PRN Reason: Hypoglycemia Protocol Stop: 09/11/20 22:15 Duloxetine HCl (Duloxetine Hcl 60 Mg Cap) 60 mg PO PM [facility] Stop: 09/11/20 22:15 Last Admin: 08/13/20 20:31 Dose: 60 mg Documented by: Duloxetine HCl (Duloxetine Hcl 30 Mg Cap) 30 mg PO QPM [facility] Stop: 09/11/20 22:15 Last Admin: 08/13/20 20:31 Dose: 30 mg Documented by: Finasteride (Finasteride 5 Mg Tab) 5 mg PO DAILY [facility] Stop: 09/12/20 08:59 Last Admin: 08/14/20 08:35 Dose: 5 mg Documented by: Glucagon (Glucagon For Inj 1 Mg Vial) 1 mg SQ UD PRN; Protocol PRN Reason: Hypoglycemia Protocol Stop: 09/11/20 22:15 Glucose (Glucose 10 Tabs/Tube) 4 - 8 tabs PO UD PRN; Protocol PRN Reason: Hypoglycemia Protocol Stop: 09/11/20 22:15 Glucose (Glucose 40% Gel 15 Gm Tube) 15 - 30 gm PO UD PRN; Protocol PRN Reason: Hypoglycemia Protocol Stop: 09/11/20 22:15 Heparin Sodium/Dextrose (Heparin Sodium/Dextrose) 25,000 units in 500 mls @ 27 mls/hr IV .[id number] [facility]YE; Protocol Stop: 09/11/20 16:29 Last Titration: 08/14/20 18:59 Dose: 1,350 units/hr, 27 mls/hr Documented by: Metronidazole (Flagyl) 500 mg in 100 mls @ 100 mls/hr IV Q8H [facility] Stop: 08/23/20 13:59 Last Infusion: 08/14/20 16:16 Dose: Infused Documented by: Pantoprazole Sodium 40 mg/ (Syringe) 10 mls @ 5 mls/min IV BID [facility] Stop: 09/13/20 10:29 Last Admin: 08/14/20 11:43 Dose: 5 mls/min Documented by: Dexamethasone 6 mg/ Syringe 1.5 mls @ 1 mls/min IV QAM [facility] Stop: 09/13/20 10:29 Last Admin: 08/14/20 11:44 Dose: 1 mls/min Documented by: Doxycycline Hyclate 100 mg/ (Dextrose) 110 mls @ 50 mls/hr IV Q12H [facility] Stop: 08/21/20 10:59 Last Infusion: 08/14/20 15:47 Dose: Infused Documented by: Remdesivir 100 mg/ Sodium (Chloride) 250 mls @ 250 mls/hr IV Q24H [facility]; Protocol Stop: 08/18/20 12:59 Ampicillin Sodium/Sulbactam Sodium 3,000 mg/ Sodium Chloride 108 mls @ 216 mls/hr IV Q6H [facility] Stop: 08/24/20 15:59 Last Infusion: 08/14/20 18:15 Dose: Infused Documented by: Insulin Aspart (Insulin Aspart 100 Units/Ml 3 Ml Pen) 0 units SC ACHS [facility]; Protocol Stop: 09/11/20 22:15 Last Admin: 08/14/20 17:51 Dose: 20 units Documented by: Insulin Glargine (Insulin Glargine Solostar 100 Units/Ml 3 Ml Pen) 20 units SC DAILY [facility]; Protocol Stop: 09/12/20 11:59 Last Admin: 08/14/20 08:51 Dose: 20 units Documented by: Insulin Human NPH (Insulin Human Nph) 30 units SC DAILY [facility]; Protocol Stop: 09/13/20 10:29 Last Admin: 08/14/20 12:24 Dose: 30 units Documented by: Magnesium Oxide (Magnesium Oxide 400 Mg Tab) 400 mg PO DAILY [facility] Stop: 09/12/20 08:59 Last Admin: 08/14/20 08:35 Dose: 400 mg Documented by: Metoprolol Tartrate (Metoprolol Tartrate 25 Mg Tab) 25 mg PO BID [facility] Stop: 09/12/20 20:59 Last Admin: 08/14/20 08:34 Dose: 25 mg Documented by: Miscellaneous (Carbohydrates For Hypoglycemia ) 15 - 30 gm PO UD PRN PRN Reason: Hypoglycemia Protocol Stop: 09/11/20 22:15 Miscellaneous Information (Pharmacy Glycemic Mgmt Consult) 1 ea N/A UD [facility] Stop: 09/12/20 11:19 Morphine Sulfate (Morphine Sulfate Ir 15 Mg Tab (Immediate Release)) 15 mg PO BID [facility] Stop: 08/26/20 22:15 Last Admin: 08/14/20 08:58 Dose: 15 mg Documented by: Pregabalin (Pregabalin 100 Mg Cap) 100 mg PO TID [facility] Stop: 09/11/20 22:15 Last Admin: 08/14/20 14:00 Dose: 100 mg Documented by: Rosuvastatin Calcium (Rosuvastatin Calcium 20 Mg Tab) 40 mg PO DAILY [facility] Stop: 09/12/20 08:59 Last Admin: 08/14/20 08:33 Dose: 40 mg Documented by: Sodium Chloride (Sodium Chloride 0.9% 10ml Flush) 30 ml IV Q24H [facility] Stop: 08/18/20 11:01 Last Admin: 08/14/20 14:02 Dose: 30 ml Documented by: Topiramate (Topiramate 25 Mg Tab) 25 mg PO BID [facility] Stop: 09/11/20 22:15 Last Admin: 08/14/20 08:36 Dose: 25 mg Documented by: Vitamin D (Cholecalciferol 1,000 Units 25 Mcg Tab) 5,000 units PO DAILY [facility] Stop: 09/12/20 08:59 Last Admin: 08/14/20 08:36 Dose: 5,000 units Documented by:
[2020-08-14] MEDS: DULoxetine HCL 60 MG CAP PO SCH (21:04)
[2020-08-14] MEDS: CYCLOBENZAPRINE HCL 10 MG TAB PO SCH (21:05)
[2020-08-14] MEDS: DULoxetine HCL 30 MG CAP PO SCH (21:05)
[2020-08-14] MEDS ORDERED: INSULIN REGULAR 250 UNITS in SODIUM CHLORIDE 0.9% 247.5 ML IV SCH (22:00)
[2020-08-14] MEDS ORDERED: INSULIN GLARGINE SOLOSTAR 100 UNITS/ML 3 ML PEN SC ONE (22:00)
[2020-08-14] MEDS ORDERED: NovoLIN-R BOLUS FROM BAG IV ONE (22:00)
[2020-08-15] MEDS: DOXYCYCLINE HYCLATE 100 MG in DEXTROSE 5% 100 ML IV SCH ×3 (00:17→22:13)
[2020-08-15] MEDS: HEPARIN SODIUM/DEXTROSE 25,000 UNITS/500 ML BAG IV SCH ×2 (02:33→22:09)
[2020-08-15] MEDS: AMPICILLIN/SULBACTAM SOD 3,000 MG in 0.9 % SODIUM CHLORIDE 100 ML IV SCH ×4 (04:24→22:06)
[2020-08-15] MEDS: metroNIDAZOLE 500 MG/100 ML BAG IV SCH ×3 (05:10→21:07)
[2020-08-15 06:14] LABS: Hematocrit (blood only) 25.3 % (42-52); Hemoglobin 7.9 g/dL (14.0-18.0); Mean Corpuscular Hemoglobin 26.3 pg (25-34); Mean Corpuscular Hgb Conc 31.2 g/dL (32-36); Mean Corpuscular Volume 84.3 fL (80-100); Platelet Count 539 K/uL (130-400); RDW Coefficient of Variation 16.3 % (11.5-14.5); RDW Standard Deviation 48.7 fL (36.4-46.3); White Blood Count 17.14 K/uL (4.8-10.8)
[2020-08-15 06:44] LABS: Partial Thromboplastin Ratio 1.8
[2020-08-15 06:50] LABS: Partial Thromboplastin Time 49.8 Seconds (21.0-31.0)
[2020-08-15 06:55] LABS: Albumin Level 1.9 gm/dl (3.4-5.0); BUN Creatinine Ratio 20.6 (10-20); Creatinine Clr Calc Pharmacy 61.4 ml/min; Est GFR (African American) 70.4; Est GFR (Non-African American) 60.7; Magnesium 1.8 mg/dl (1.8-2.4)
[2020-08-15 06:58] LABS: Albumin Globulin Ratio 0.4 (0.9-2); Bilirubin,Total 0.3 mg/dl (0.2-1); Globulin 4.3 gm/dl (2.5-4.0); Phosphorus 1.8 mg/dl (2.5-4.9); Total Protein 6.2 gm/dl (6.4-8.2)
[2020-08-15] MEDS ORDERED: INSULIN ASPART 100 UNITS/ML 3 ML PEN SC SCH (07:30)
[2020-08-15] MEDS: MAGNESIUM OXIDE 400 MG TAB PO SCH (08:38)
[2020-08-15] MEDS: CYANOCOBALAMIN 500 MCG TABLET (VITAMIN B-12) PO SCH (08:38)
[2020-08-15] MEDS: METOPROLOL TARTRATE 25 MG TAB PO SCH ×2 (08:39→20:07)
[2020-08-15] MEDS: TOPIRAMATE 25 MG TAB PO SCH ×2 (08:39→21:08)
[2020-08-15] MEDS: FINASTERIDE 5 MG TAB PO SCH (08:39)
[2020-08-15] MEDS: ROSUVASTATIN CALCIUM 20 MG TAB PO SCH (08:39)
[2020-08-15] MEDS: ASPIRIN 81 MG ECTAB PO SCH (08:39)
[2020-08-15] MEDS: CHOLECALCIFEROL 1,000 UNITS 25 MCG TAB PO SCH (08:39)
[2020-08-15] MEDS: dexAMETHasone 6 MG in SYRINGE 0 ML IV SCH (08:57)
[2020-08-15] MEDS: PREGABALIN 100 MG CAP PO SCH ×3 (08:57→20:06)
[2020-08-15] MEDS: MoRPHine SULFATE IR 15 MG TAB (IMMEDIATE RELEASE) PO SCH ×2 (08:57→21:07)
[2020-08-15] MEDS: PANTOprazole 40 MG in SYRINGE 0 ML IV SCH ×2 (08:58→20:06)
[2020-08-15] MEDS: INSULIN GLARGINE SOLOSTAR 100 UNITS/ML 3 ML PEN SC SCH ×2 (09:06→18:02)
[2020-08-15] MEDS: INSULIN ASPART 100 UNITS/ML 3 ML PEN SC SCH ×4 (09:06→21:30)
[2020-08-15] MEDS: INSULIN HUMAN NPH SC SCH (09:06)
--- NOTE | 2020-08-15 09:18 | Hospitalist Progress Note ---
Date of Service August 15, 2020 Assessment & Plan (1) Atrial fibrillation, new onset: Present on admission with shortness of breath on exertion associated with palpitation EKG on admission showed A. fib with HR 97 Possible related to electrolyte imbalance due to diarrhea and acute infection with covid 19 Was started on a IV heparin drip in the ER due to high [id number] score Electrolytes replaced, will keep K above 4 and Mg above 2 Will get an echo Cardiology consulted Continued metoprolol 37.5 mg BID -> switched to 25 BID w/ digoxin d/t hypotension Consider to add a low dose IV lopressor PRN for HR above 120 Will monitor closely in tele Pt was hypotensive, tachycardic HR 120-140s Added digoxin pt received 0.5 mg IV w/ some improvement in HR cont. to closely monitor + COVID 19 CXR showed no active disease in the chest on admission Denies any recent exposure to anyone testing positive with COVID 19 Recently discharged from [facility], about 10 days ago saturated well on RA on admission, now on 2L Not a candidate for dexamethasone and remdesivir since his O2 saturation 94% on RA on admission Now pt requires O2, dexamethasone and remdesivir started (08/14) Started ceftriaxone and doxy, but given urine cultx, switched ceft to unasyn Will place on isolation Will check Procalcitonin, Ferritin, ESR and CRP Elevated troponin Mostly related to Afib Troponin on admission 0.067 EKG showed no ischemic changes Will trend trop Already on Heparin drip for Afib currently denies any chest pain Follow up echo Continue aspirin, statin and metoprolol KENIA Possible related to dehydration due to diarrhea Creatinine on admission 1.66 (baseline 1.2-1.3) received IVF in the ER , will continue IV hydration Will avoid nephrotoxic agents Continue monitor BMP Cr now much improved 1.2 Electrolytes Imbalance Mg 1.3 and K 2.7 and Na 129 on admission, Phos low as well Replete and monitor Elevated WBC Possible related to +COVID 19 lactate normal and afebrile Will check Procalcitonin Start Abx given hypotension and significantly elevated WBC (likely 2/2 COVID and UTI) Continue monitor CBC UTI UA positive for Leukocytes and bacteria Elevated WBC Pt reports lower abd. pain, mostly LLQ Urine culture posit. for bacterial growth, will start Abx Ucltx - posit. for Enterococcus faecalis Switched ceftriaxone to Unasyn given urine cultx (08/14) LLQ abd. pain - in the setting of anemia - also hx of diarrhea prior to admission - stool cultx, c. diff ordered - sample uncollected - will obtain CT abdomen/pelvis Anemia - initial Hgb 11, now about 8 - pt was given IVF - FOBT ordered - will obtain CT abd.pelvis to r/o any bleed DM type 2 uncontrolled DM, last Hba1c 11.6 on 06/26 Will hold oral diabetes med (metformin, trajenta and Januvia) Will continue lantus and add novolog sliding scale during the hospital course Continue monitor BS Dyslipidemia Recent lipid panel on 08/10 with Chol 99, HDL 32 and LDL 46 Continue statin stable L AKA fall precaution Consider PT/OT once symptoms improve DVT px on IV heparin drip CODE STATUS DNR as per pt wishes Disposition : discharge once medically stable Contacted and updated pt's sister, who is very appreciative of updates. Also confirmed DNR/DNI status with pt and his sister over the phone. Admission and Anticipated Discharge Date Admission Date: August 12, 2020 Subjective Patient is sitting up in bed, in no acute distress. He is more alert today, eating breakfast (scrambled eggs). But appears quite fatigued. Reports left lower quadrant abdominal discomfort is improved now. Denies chest pain. Review of Systems Review of Systems: All systems reviewed & are unremarkable except as noted in HPI & below Constitutional: no fever and no chills Respiratory: + cough and + dyspnea Cardiovascular: no chest pain and no palpitations Gastrointestinal: + abdominal pain (LLQ (improved)) Physical Exam Physical Exam: General- elderly male, +chronically ill appearing, laying in bed, +appears fatigued Head- atraumatic Eyes- PERRL, EOMI, ENT- decrease hearing Neck- supple, no JVD Lungs- clear to auscultation b/l Heart- irregular rhythm Abdomen- normal bowel sounds, soft, nontender Extremities- no calf tenderness, L AKA Neuro- alert and oriented x 3; PERRL, EOMI; no facial palsy; no dysarthria Skin- warm & dry Results & Data Results & Data ([facility]) Vital Signs (Past 12 Hours) Vital Signs Temp Pulse Pulse Resp BP Pulse Ox 08/15/20 08:23 36.6 C 72 19 99/60 L 97 08/15/20 02:44 78 18 101/66 98 08/15/20 00:18 36.4 C L 81 18 109/67 99 08/14/20 22:30 80 Laboratory Results 08/15/20 08/15/20 08/15/20 Range/Units 08:44 06:43 05:43 WBC (4.8-10.8) K/uL RBC (4.7-6.1) M/uL Hgb (14.0-18.0) g/dL Hct (42-52) % MCV (80-100) fL MCH (25-34) pg MCHC (32-36) g/dL RDW Std Deviation (36.4-46.3) fL RDW Coeff of Halle (11.5-14.5) % Plt Count (130-400) K/uL MPV (7.4-10.4) fL APTT 49.8 H* (21.0-31.0) Seconds PTT Ratio 1.8 Sodium (136-145) mmol/L Potassium (3.5-5.1) mmol/L Chloride (98-107) mmol/L Carbon Dioxide (21-32) mmol/L Anion Gap (3-11) BUN (7-18) mg/dl Creatinine (0.6-1.4) mg/dl Est Cr Clr Drug Dosing ml/min Est GFR ( Amer) Est GFR (Non-Af Amer) BUN/Creatinine Ratio (10-20) Glucose (70-99) mg/dl POC Glucose 225 H 218 H (70-99) mg/dl Calcium (8.5-10.1) mg/dl Phosphorus (2.5-4.9) mg/dl Magnesium (1.8-2.4) mg/dl Total Bilirubin (0.2-1) mg/dl AST (15-37) U/L ALT (12-78) U/L Alkaline Phosphatase (45-117) U/L Total Protein (6.4-8.2) gm/dl Albumin (3.4-5.0) gm/dl Globulin (2.5-4.0) gm/dl Albumin/Globulin Ratio (0.9-2) 08/15/20 08/15/20 08/15/20 Range/Units 05:43 05:43 04:42 WBC 17.14 H (4.8-10.8) K/uL RBC 3.00 L (4.7-6.1) M/uL Hgb 7.9 L (14.0-18.0) g/dL Hct 25.3 L (42-52) % MCV 84.3 (80-100) fL MCH 26.3 (25-34) pg MCHC 31.2 L (32-36) g/dL RDW Std Deviation 48.7 H (36.4-46.3) fL RDW Coeff of Halle 16.3 H (11.5-14.5) % Plt Count 539 H (130-400) K/uL MPV 11.0 H (7.4-10.4) fL APTT (21.0-31.0) Seconds PTT Ratio Sodium 138 (136-145) mmol/L Potassium 4.0 (3.5-5.1) mmol/L Chloride 109 H (98-107) mmol/L Carbon Dioxide 23 (21-32) mmol/L Anion Gap 6.0 (3-11) BUN 25 H (7-18) mg/dl Creatinine 1.21 (0.6-1.4) mg/dl Est Cr Clr Drug Dosing 61.4 ml/min Est GFR ( Amer) 70.4 Est GFR (Non-Af Amer) 60.7 BUN/Creatinine Ratio 20.6 H (10-20) Glucose 239 H (70-99) mg/dl POC Glucose 268 H (70-99) mg/dl Calcium 8.0 L (8.5-10.1) mg/dl Phosphorus 1.8 L (2.5-4.9) mg/dl Magnesium 1.8 (1.8-2.4) mg/dl Total Bilirubin 0.3 (0.2-1) mg/dl AST 14 L (15-37) U/L ALT 14 (12-78) U/L Alkaline Phosphatase 113 (45-117) U/L Total Protein 6.2 L (6.4-8.2) gm/dl Albumin 1.9 L (3.4-5.0) gm/dl Globulin 4.3 H (2.5-4.0) gm/dl Albumin/Globulin Ratio 0.4 L (0.9-2) 08/15/20 08/15/20 08/14/20 Range/Units 02:40 00:16 20:57 WBC (4.8-10.8) K/uL RBC (4.7-6.1) M/uL Hgb (14.0-18.0) g/dL Hct (42-52) % MCV (80-100) fL MCH (25-34) pg MCHC (32-36) g/dL RDW Std Deviation (36.4-46.3) fL RDW Coeff of Halle (11.5-14.5) % Plt Count (130-400) K/uL MPV (7.4-10.4) fL APTT (21.0-31.0) Seconds PTT Ratio Sodium (136-145) mmol/L Potassium (3.5-5.1) mmol/L Chloride (98-107) mmol/L Carbon Dioxide (21-32) mmol/L Anion Gap (3-11) BUN (7-18) mg/dl Creatinine (0.6-1.4) mg/dl Est Cr Clr Drug Dosing ml/min Est GFR ( Amer) Est GFR (Non-Af Amer) BUN/Creatinine Ratio (10-20) Glucose (70-99) mg/dl POC Glucose 259 H 297 H 366 H* (70-99) mg/dl Calcium (8.5-10.1) mg/dl Phosphorus (2.5-4.9) mg/dl Magnesium (1.8-2.4) mg/dl Total Bilirubin (0.2-1) mg/dl AST (15-37) U/L ALT (12-78) U/L Alkaline Phosphatase (45-117) U/L Total Protein (6.4-8.2) gm/dl Albumin (3.4-5.0) gm/dl Globulin (2.5-4.0) gm/dl Albumin/Globulin Ratio (0.9-2) 08/14/20 08/14/20 08/14/20 Range/Units 20:56 17:08 16:37 WBC (4.8-10.8) K/uL RBC (4.7-6.1) M/uL Hgb 8.2 L (14.0-18.0) g/dL Hct 25.1 L (42-52) % MCV (80-100) fL MCH (25-34) pg MCHC (32-36) g/dL RDW Std Deviation (36.4-46.3) fL RDW Coeff of Halle (11.5-14.5) % Plt Count (130-400) K/uL MPV (7.4-10.4) fL APTT (21.0-31.0) Seconds PTT Ratio Sodium (136-145) mmol/L Potassium (3.5-5.1) mmol/L Chloride (98-107) mmol/L Carbon Dioxide (21-32) mmol/L Anion Gap (3-11) BUN (7-18) mg/dl Creatinine (0.6-1.4) mg/dl Est Cr Clr Drug Dosing ml/min Est GFR ( Amer) Est GFR (Non-Af Amer) BUN/Creatinine Ratio (10-20) Glucose (70-99) mg/dl POC Glucose 353 H* 366 H* (70-99) mg/dl Calcium (8.5-10.1) mg/dl Phosphorus (2.5-4.9) mg/dl Magnesium (1.8-2.4) mg/dl Total Bilirubin (0.2-1) mg/dl AST (15-37) U/L ALT (12-78) U/L Alkaline Phosphatase (45-117) U/L Total Protein (6.4-8.2) gm/dl Albumin (3.4-5.0) gm/dl Globulin (2.5-4.0) gm/dl Albumin/Globulin Ratio (0.9-2) 08/14/20 08/14/20 08/14/20 Range/Units 16:35 11:06 07:49 WBC 17.54 H (4.8-10.8) K/uL RBC 2.96 L (4.7-6.1) M/uL Hgb 8.0 L (14.0-18.0) g/dL Hct 24.8 L (42-52) % MCV 83.8 D (80-100) fL MCH 27.0 (25-34) pg MCHC 32.3 (32-36) g/dL RDW Std Deviation 47.0 H (36.4-46.3) fL RDW Coeff of Halle 15.9 H (11.5-14.5) % Plt Count 485 H (130-400) K/uL MPV 11.1 H (7.4-10.4) fL APTT (21.0-31.0) Seconds PTT Ratio Sodium (136-145) mmol/L Potassium (3.5-5.1) mmol/L Chloride (98-107) mmol/L Carbon Dioxide (21-32) mmol/L Anion Gap (3-11) BUN (7-18) mg/dl Creatinine (0.6-1.4) mg/dl Est Cr Clr Drug Dosing ml/min Est GFR ( Amer) Est GFR (Non-Af Amer) BUN/Creatinine Ratio (10-20) Glucose (70-99) mg/dl POC Glucose 358 H* 239 H (70-99) mg/dl Calcium (8.5-10.1) mg/dl Phosphorus (2.5-4.9) mg/dl Magnesium (1.8-2.4) mg/dl Total Bilirubin (0.2-1) mg/dl AST (15-37) U/L ALT (12-78) U/L Alkaline Phosphatase (45-117) U/L Total Protein (6.4-8.2) gm/dl Albumin (3.4-5.0) gm/dl Globulin (2.5-4.0) gm/dl Albumin/Globulin Ratio (0.9-2) Medications Administered Current Inpatient Medications Acetaminophen (Acetaminophen 325 Mg Tab) 325 mg PO Q6H PRN PRN Reason: Pain Stop: 09/11/20 22:15 Albuterol (Albuterol Hfa 8 Gm Inhaler) 2 puffs INH Q6H PRN PRN Reason: Shortness Of Breath Stop: 09/11/20 22:15 Aspirin (Aspirin 81 Mg Ectab) 81 mg PO DAILY SKYE Stop: 09/12/20 08:59 Last Admin: 08/15/20 08:39 Dose: 81 mg Documented by: Cyanocobalamin (Cyanocobalamin 500 Mcg Tablet (Vitamin B-12)) 1,000 mcg PO DAILY SKYE Stop: 09/12/20 08:59 Last Admin: 08/15/20 08:38 Dose: 1,000 mcg Documented by: Cyclobenzaprine HCl (Cyclobenzaprine Hcl 10 Mg Tab) 10 mg PO HS SKYE Stop: 09/11/20 22:59 Last Admin: 08/14/20 21:05 Dose: 10 mg Documented by: Dextrose (Dextrose 50% 50 Ml Syringe) 25 - 50 ml IV UD PRN; Protocol PRN Reason: Hypoglycemia Protocol Stop: 09/11/20 22:15 Duloxetine HCl (Duloxetine Hcl 60 Mg Cap) 60 mg PO PM SKYE Stop: 09/11/20 22:15 Last Admin: 08/14/20 21:04 Dose: 60 mg Documented by: Duloxetine HCl (Duloxetine Hcl 30 Mg Cap) 30 mg PO QPM SKYE Stop: 09/11/20 22:15 Last Admin: 08/14/20 21:05 Dose: 30 mg Documented by: Finasteride (Finasteride 5 Mg Tab) 5 mg PO DAILY SKYE Stop: 09/12/20 08:59 Last Admin: 08/15/20 08:39 Dose: 5 mg Documented by: Glucagon (Glucagon For Inj 1 Mg Vial) 1 mg SQ UD PRN; Protocol PRN Reason: Hypoglycemia Protocol Stop: 09/11/20 22:15 Glucose (Glucose 10 Tabs/Tube) 4 - 8 tabs PO UD PRN; Protocol PRN Reason: Hypoglycemia Protocol Stop: 09/11/20 22:15 Glucose (Glucose 40% Gel 15 Gm Tube) 15 - 30 gm PO UD PRN; Protocol PRN Reason: Hypoglycemia Protocol Stop: 09/11/20 22:15 Heparin Sodium/Dextrose (Heparin Sodium/Dextrose) 25,000 units in 500 mls @ 27 mls/hr IV .[id number] SKYE; Protocol Stop: 09/11/20 16:29 Last Titration: 08/15/20 07:08 Dose: 1,350 units/hr, 27 mls/hr Documented by: Metronidazole (Flagyl) 500 mg in 100 mls @ 100 mls/hr IV Q8H [facility]YE Stop: 08/23/20 13:59 Last Infusion: 08/15/20 06:36 Dose: Infused Documented by: Pantoprazole Sodium 40 mg/ (Syringe) 10 mls @ 5 mls/min IV BID SKYE Stop: 09/13/20 10:29 Last Admin: 08/15/20 08:58 Dose: 5 mls/min Documented by: Dexamethasone 6 mg/ Syringe 1.5 mls @ 1 mls/min IV QAM [facility] Stop: 09/13/20 10:29 Last Admin: 08/15/20 08:57 Dose: 1 mls/min Documented by: Doxycycline Hyclate 100 mg/ (Dextrose) 110 mls @ 50 mls/hr IV Q12H [facility] Stop: 08/21/20 10:59 Last Infusion: 08/15/20 03:00 Dose: Infused Documented by: Remdesivir 100 mg/ Sodium (Chloride) 250 mls @ 250 mls/hr IV Q24H [facility]; Protocol Stop: 08/18/20 12:59 Ampicillin Sodium/Sulbactam Sodium 3,000 mg/ Sodium Chloride 108 mls @ 216 mls/hr IV Q6H [facility] Stop: 08/24/20 15:59 Last Admin: 08/15/20 08:58 Dose: 200 mls/hr Documented by: Insulin Human Regular 250 (units/ Sodium Chloride) 250 mls @ 2.9 mls/hr IV .Q24H [facility]; Protocol Stop: 09/13/20 21:59 Last Titration: 08/15/20 07:08 Dose: 2.9 units/hr, 2.9 mls/hr Documented by: Insulin Aspart (Insulin Aspart 100 Units/Ml 3 Ml Pen) 0 units SC ACHS [facility]; Protocol Stop: 09/11/20 22:15 Last Admin: 08/15/20 09:06 Dose: 11 units Documented by: Insulin Glargine (Insulin Glargine Solostar 100 Units/Ml 3 Ml Pen) 20 units SC DAILY [facility]; Protocol Stop: 09/12/20 11:59 Last Admin: 08/15/20 09:06 Dose: 20 units Documented by: Insulin Human NPH (Insulin Human Nph) 30 units SC DAILY [facility]; Protocol Stop: 09/13/20 10:29 Last Admin: 08/15/20 09:06 Dose: 30 units Documented by: Magnesium Oxide (Magnesium Oxide 400 Mg Tab) 400 mg PO DAILY [facility] Stop: 09/12/20 08:59 Last Admin: 08/15/20 08:38 Dose: 400 mg Documented by: Metoprolol Tartrate (Metoprolol Tartrate 25 Mg Tab) 25 mg PO BID [facility] Stop: 09/12/20 20:59 Last Admin: 08/15/20 08:39 Dose: 25 mg Documented by: Miscellaneous (Carbohydrates For Hypoglycemia ) 15 - 30 gm PO UD PRN PRN Reason: Hypoglycemia Protocol Stop: 09/11/20 22:15 Miscellaneous Information (Pharmacy Glycemic Mgmt Consult) 1 ea N/A UD [facility] Stop: 09/12/20 11:19 Morphine Sulfate (Morphine Sulfate Ir 15 Mg Tab (Immediate Release)) 15 mg PO BID [facility] Stop: 08/26/20 22:15 Last Admin: 08/15/20 08:57 Dose: 15 mg Documented by: Potassium Phosphate (Pot Phosphate Monobasic W/ Sod Tab) 1 tab PO QID [facility] Stop: 09/14/20 12:59 Pregabalin (Pregabalin 100 Mg Cap) 100 mg PO TID [facility] Stop: 09/11/20 22:15 Last Admin: 08/15/20 08:57 Dose: 100 mg Documented by: Rosuvastatin Calcium (Rosuvastatin Calcium 20 Mg Tab) 40 mg PO DAILY [facility] Stop: 09/12/20 08:59 Last Admin: 08/15/20 08:39 Dose: 40 mg Documented by: Sodium Chloride (Sodium Chloride 0.9% 10ml Flush) 30 ml IV Q24H [facility] Stop: 08/18/20 11:01 Last Admin: 08/14/20 14:02 Dose: 30 ml Documented by: Topiramate (Topiramate 25 Mg Tab) 25 mg PO BID [facility] Stop: 09/11/20 22:15 Last Admin: 08/15/20 08:39 Dose: 25 mg Documented by: Vitamin D (Cholecalciferol 1,000 Units 25 Mcg Tab) 5,000 units PO DAILY [facility] Stop: 09/12/20 08:59 Last Admin: 08/15/20 08:39 Dose: 5,000 units Documented by:
[2020-08-15] MEDS ORDERED: DC IV INSULIN INFUSION 1 EA DEVI ONE (12:00)
[2020-08-15] MEDS ORDERED: SODIUM PHOSPHATE 3 MMOL/1 ML INFUSION IV STA (12:08)
[2020-08-15] MEDS ORDERED: ALBUMIN 25% 12.5 GM/50 ML VIAL IV ONE (12:15)
[2020-08-15] MEDS: SODIUM CHLORIDE 0.9% 10ML FLUSH IV SCH (12:17)
[2020-08-15] MEDS: REMDESIVIR 100 MG in SODIUM CHLORIDE 0.9% 230 ML IV SCH (12:17)
[2020-08-15] MEDS ORDERED: SODIUM PHOSPHATE 12 MMOL in SODIUM CHLORIDE 0.9% 250 ML IV ONE (12:30)
--- NOTE | 2020-08-15 12:54 | CT Scan Report ---
ABDOMEN AND PELVIS CT WITHOUT CONTRAST CT DOSE: 1053.69 mGycm HISTORY: Acute generalized abdominal pain with anemia abd. pain, anemia, r/o bleed TECHNIQUE: Multiaxial CT images of the abdomen and pelvis were performed without contrast. A dose lo wering technique was utilized adhering to the principles of ALARA. COMPARISON STUDY: CT abdomen and pelvis 06/28/2020 FINDINGS: Motion degraded exam. Small pleural effusions. Bibasilar groundglass and patchy consolidative opaciti es are new from comparison. No pneumatosis or pneumoperitoneum. Limited exam without the use of IV co ntrast. Cardiomegaly with prior median sternotomy. Decreased attenuation of the cardiac blood pool rivas ggests anemia. Papillary muscle calcifications of the left ventricle. The unenhanced spleen, mildly a trophic pancreas, adrenal glands and liver are unremarkable. Cholelithiasis without CT evidence of ac lv cholecystitis. There is mild bilateral pelvocaliectasis with decreased distention of the renal collecting systems an d ureters from comparison. Urothelial thickening is noted, right greater than left. No renal or urete ral calculi. Mejia catheter noted within the urinary bladder which demonstrates moderate to marked wa ll thickening. Intraluminal air within the bladder is also noted. 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 No aneurysm. No adenopathy. No bowel obstruction. Colonic diverticulosis without acute diverticulitis. Mild to moderate fecal ret ention. Nonvisualization of the appendix. Trace abdominopelvic ascites with generalized body wall jose antonio ma. 8 mm soft tissue nodule of the subcutaneous anterior abdominal wall is new from prior suggestive of a small injection granuloma. No retroperitoneal or rectus sheath hematoma identified. Degenerative changes of the spine, pelvis and hips. Posterior disc osteophyte complex at L3-L4 and L4-L5. IMPRESSION: 1. No bowel obstruction or bowel wall thickening. 2. Mild bilateral hydronephrosis has improved from comparison. Urothelial thickening, right greater t nava left may reflect associated infectious etiology. Correlate with urinalysis. 3. Urinary bladder wall thickening suggests chronic bladder outlet obstruction versus cystitis. 4. Small pleural effusions with trace abdominopelvic ascites and anasarca. 5. Bibasilar groundglass and patchy consolidative opacities are suggestive of pneumonitis versus pulm onary edema with atelectasis. 6. Cholelithiasis. 7. No acute intra-abdominal or intrapelvic hemorrhage identified. 8. Additional findings as above. ACT 112: Negative or not required by law. The above report was generated using voice recognition software. It may contain grammatical, syntax o r spelling errors. Electronically signed by: Robbie Davidson M.D. 08/15/2020 12:52 PM
[2020-08-15] MEDS: POT PHOSPHATE MONOBASIC W/ SOD TAB PO SCH ×3 (13:10→20:06)
--- NOTE | 2020-08-15 13:21 | Pharmacy Report ---
Glycemic Control Progress Note - Date of Service August 15, 2020 - Scope Glycemic Pharmacist consulted for glycemic control to write orders per [facility] inpatient glycemic control protocol. - Objective Accuchecks BSG(last 24 hours):: 08/14/20 08/14/20 08/14/20 16:35 16:37 20:56 Glucose POC Glucose 358 H* 366 H* 353 H* 08/14/20 08/15/20 08/15/20 20:57 00:16 02:40 Glucose POC Glucose 366 H* 297 H 259 H 08/15/20 08/15/20 08/15/20 04:42 05:43 06:43 Glucose 239 H POC Glucose 268 H 218 H 08/15/20 08/15/20 08:44 10:45 Glucose POC Glucose 225 H 221 H HbA1c:: Hemoglobin A1c 9.4 % (4.5-5.6) H 08/13/20 03:05 - Recent Pertinent Medications The patient is currently receiving: * Basal insulin: Lantus 20 units every 24 hours plus one time dose of Lantus 15 units last night + NPH 30 units qAM * Correctional Insulin: Novolog Correction per scale ACHS Goal Range: Low 110 mg/dL - High 140 mg/dL Correction Factor: 15 mg/dL/unit * Prandial insulin: Per carb ratio of 1 unit per 5 grams CHO consumed - Outpatient Anti-Diabetic Meds Lantus 20 units qAM Januvia 100 mg daily Tradjenta 5 mg daily - Assessment & Plan ASSESSMENT: * See progress note from 08/13/2020 for more background info, in short: * Pt receiving SQ basal bolus insulin regimen for hyperglycemia secondary to baseline DM (outpatient regimen on hold). Patient is currently on Unasyn, doxycycline, Flagyl, and remdisivir. He is receiving dexamethasone 6 mg IV daily. * Patient is currently receiving an average of 100 units of insulin per day plus IV insulin started in the evening. Insulin infusion ran at 2.4 units/hr. * 65 units of basal insulin * 35 units of prandial/correctional insulin * BSGs ranging 146 - 375 mg/dl over the past 24hrs * Changes needed to insulin regimen: * AM Fasting BSG = 239 mg/dl. This is above goal range for patient based on inpatient targets and co-morbidities. Will start Lantus 20 units BID (give second dose today at dinner time) plus NPH 30 units (0.35 units/kg) to help offset steroid induced hyperglycemia. * Post-prandial BSGs were elevated yesterday. Tightened to CF of 10 CR of 3. * Total daily dose = ? units. Will change based upon steroid use. PLAN FOR INPATIENT GLYCEMIC CONTROL: * INCREASING Lantus to 20 units SQ BID * TIGHTENING correction factor to 10 mg/dl/unit * TIGHTENING carb ratio to 1 unit per 3 grams CHO consumed * Continuing goal range of Low 110 mg/dL - High 140 mg/dL * Please note that the plan above was derived based on current level of insulin resistance and hospital stress. These recommendations are appropriate for inpatient admission only. Plan of care upon discharge will need to be reassessed to avoid potential outpatient hypo/hyperglycemia. Thank you.
[2020-08-15] MEDS: CYCLOBENZAPRINE HCL 10 MG TAB PO SCH (20:06)
[2020-08-15] MEDS ORDERED: INSULIN GLARGINE SOLOSTAR 100 UNITS/ML 3 ML PEN SC SCH (21:00)
[2020-08-15] MEDS: DULoxetine HCL 60 MG CAP PO SCH (21:08)
[2020-08-15] MEDS: DULoxetine HCL 30 MG CAP PO SCH (21:08)
[2020-08-16] MEDS: DOXYCYCLINE HYCLATE 100 MG in DEXTROSE 5% 100 ML IV SCH ×3 (00:13→23:15)
[2020-08-16] MEDS: AMPICILLIN/SULBACTAM SOD 3,000 MG in 0.9 % SODIUM CHLORIDE 100 ML IV SCH ×4 (05:27→21:07)
[2020-08-16] MEDS: metroNIDAZOLE 500 MG/100 ML BAG IV SCH ×3 (05:27→21:07)
[2020-08-16 06:42] LABS: Hemoglobin 8.4 g/dL (14.0-18.0); Mean Corpuscular Hemoglobin 26.9 pg (25-34); Mean Corpuscular Hgb Conc 32.3 g/dL (32-36); Mean Corpuscular Volume 83.3 fL (80-100); Mean Platelet Volume 10.6 fL (7.4-10.4); Nucleated RBC # (auto) 0.08 K/uL (0-0); Nucleated RBC % (auto) 0.4 %; Platelet Count 605 K/uL (130-400); RDW Coefficient of Variation 16.5 % (11.5-14.5); RDW Standard Deviation 48.7 fL (36.4-46.3); Red Blood Count 3.12 M/uL (4.7-6.1); White Blood Count 21.39 K/uL (4.8-10.8)
[2020-08-16 07:31] LABS: Albumin Globulin Ratio 0.5 (0.9-2); Albumin Level 2.2 gm/dl (3.4-5.0); BUN Creatinine Ratio 18.8 (10-20); Bilirubin,Total 0.2 mg/dl (0.2-1); Calcium 8.4 mg/dl (8.5-10.1); Creatinine Clr Calc Pharmacy 56.1 ml/min; Est GFR (African American) 57.5; Est GFR (Non-African American) 49.6; Globulin 4.1 gm/dl (2.5-4.0); Magnesium 1.4 mg/dl (1.8-2.4); Phosphorus 3.1 mg/dl (2.5-4.9); Potassium 4.9 mmol/L (3.5-5.1); Total Protein 6.3 gm/dl (6.4-8.2)
[2020-08-16 07:42] LABS: Partial Thromboplastin Ratio 2.1
[2020-08-16] MEDS ORDERED: MAGNESIUM SULFATE / D5W 1 GM/100 ML BAG IV SCH (07:45)
[2020-08-16 07:57] LABS: Partial Thromboplastin Time 57.2 Seconds (21.0-31.0)
[2020-08-16] MEDS: METOPROLOL TARTRATE 25 MG TAB PO SCH ×2 (08:35→21:14)
[2020-08-16] MEDS: CHOLECALCIFEROL 1,000 UNITS 25 MCG TAB PO SCH (08:36)
[2020-08-16] MEDS: POT PHOSPHATE MONOBASIC W/ SOD TAB PO SCH ×4 (08:36→21:13)
[2020-08-16] MEDS: TOPIRAMATE 25 MG TAB PO SCH ×2 (08:36→21:13)
[2020-08-16] MEDS: CYANOCOBALAMIN 500 MCG TABLET (VITAMIN B-12) PO SCH (08:36)
[2020-08-16] MEDS: MAGNESIUM OXIDE 400 MG TAB PO SCH (08:37)
[2020-08-16] MEDS: ASPIRIN 81 MG ECTAB PO SCH (08:37)
[2020-08-16] MEDS: FINASTERIDE 5 MG TAB PO SCH (08:37)
[2020-08-16] MEDS: ROSUVASTATIN CALCIUM 20 MG TAB PO SCH (08:37)
[2020-08-16] MEDS: dexAMETHasone 6 MG in SYRINGE 0 ML IV SCH (08:38)
[2020-08-16] MEDS: PANTOprazole 40 MG in SYRINGE 0 ML IV SCH ×2 (08:38→21:02)
[2020-08-16] MEDS: INSULIN ASPART 100 UNITS/ML 3 ML PEN SC SCH ×4 (09:03→21:48)
[2020-08-16] MEDS: MoRPHine SULFATE IR 15 MG TAB (IMMEDIATE RELEASE) PO SCH ×2 (09:04→21:02)
[2020-08-16] MEDS: PREGABALIN 100 MG CAP PO SCH ×3 (09:04→21:02)
[2020-08-16] MEDS: INSULIN GLARGINE SOLOSTAR 100 UNITS/ML 3 ML PEN SC SCH (09:04)
[2020-08-16] MEDS: INSULIN HUMAN NPH SC SCH (09:04)
--- NOTE | 2020-08-16 11:50 | Hospitalist Progress Note ---
Date of Service August 16, 2020 Assessment & Plan (1) Atrial fibrillation, new onset: Present on admission with shortness of breath on exertion associated with palpitations EKG on admission showed A. fib with HR 97 Possible related to electrolyte imbalance due to diarrhea and acute infection with covid 19 Was started on a IV heparin drip in the ER due to high [id number] score Electrolytes replaced, will keep K above 4 and Mg above 2 Echo obtained and Cardiology consulted - Afib d/t acute illness, cont. IV heparin and treat underlying illness Continued metoprolol 37.5 mg BID -> switched to 25 BID w/ digoxin d/t hypotension Consider to add a low dose IV lopressor PRN for HR above 120 Will monitor closely in tele Pt was hypotensive, tachycardic HR 120-140s Added digoxin pt received 0.5 mg IV w/ some improvement in HR cont. to closely monitor Currently HR well controlled and BP acceptable + COVID 19 CXR showed no active disease in the chest on admission Denies any recent exposure to anyone testing positive with COVID 19 Recently discharged from [facility], about 10 days ago saturated well on RA on admission, now on 2L Not a candidate for dexamethasone and remdesivir since his O2 saturation 94% on RA on admission Now pt requires O2, dexamethasone and remdesivir started (08/14) Started ceftriaxone and doxy, but given urine cultx, switched ceft to unasyn check Procalcitonin, Ferritin, ESR and CRP Elevated troponin Mostly related to Afib Troponin on admission 0.067 EKG showed no ischemic changes Already on Heparin drip for Afib currently denies any chest pain Follow up echo Continue aspirin, statin and metoprolol KENIA Possible related to dehydration due to diarrhea Creatinine on admission 1.66 (baseline 1.2-1.3) received IVF in the ER , continued IV hydration Will avoid nephrotoxic agents Continue monitor BMP Cr much improved ~1.2 Electrolytes Imbalance Mg 1.3 and K 2.7 and Na 129 on admission, Phos low as well Replete and monitor electrolyte imbalance likely d/t diarrheal illness, poor oral intake Now improved Elevated WBC Possible related to +COVID 19 lactate normal and afebrile Start Abx given hypotension and significantly elevated WBC (likely 2/2 COVID and UTI) Continue monitor CBC UTI UA positive for Leukocytes and bacteria Elevated WBC Pt reports lower abd. pain, mostly LLQ Ucltx - posit. for Enterococcus faecalis Switched ceftriaxone to Unasyn given urine cultx (08/14) LLQ abd. pain - in the setting of anemia - also hx of diarrhea prior to admission - stool cultx, c. diff ordered - sample uncollected - obtained CT abdomen/pelvis - no acute process Anemia - initial Hgb 11, now about 8 - pt was given IVF - FOBT ordered - obtained CT abd.pelvis to r/o any bleed, no acute process DM type 2 uncontrolled DM, last Hba1c 11.6 on 06/26 Will hold oral diabetes med (metformin, trajenta and Januvia) Will continue lantus and add novolog sliding scale during the hospital course Continue monitor BS Dyslipidemia Recent lipid panel on 08/10 with Chol 99, HDL 32 and LDL 46 Continue statin stable L AKA fall precaution Consider PT/OT once symptoms improve DVT px on IV heparin drip CODE STATUS DNR as per pt wishes Disposition : discharge once medically stable Contacted and updated pt's sister, who is very appreciative of updates. Also confirmed DNR/DNI status with pt and his sister over the phone. Admission and Anticipated Discharge Date Admission Date: August 12, 2020 Subjective Patient is sitting up in bed, in no acute distress. He is alert and oriented and answering questions appropriately but he is very hard of hearing, does not have his hearing aids. Reports left lower quadrant abdominal discomfort is improved now. No loose stools, no BM actually in the past couple of days. CT abd. showed no acute proc ess. Denies chest pain, fever, chills, reports dyspnea and cough. Review of Systems Review of Systems: All systems reviewed & are unremarkable except as noted in HPI & below Constitutional: no fever and no chills Respiratory: + cough and + dyspnea Cardiovascular: no chest pain and no palpitations Gastrointestinal: + abdominal pain (LLQ (improved)) Physical Exam Physical Exam: General- elderly male, +chronically ill appearing, laying in bed, +appears fatigued Head- atraumatic Eyes- PERRL, EOMI, ENT- decreased hearing Neck- supple, no JVD Lungs- clear to auscultation b/l Heart- irregular rhythm Abdomen- normal bowel sounds, soft, nontender Extremities- no calf tenderness, L AKA Neuro- alert and oriented x 3; PERRL, EOMI; no facial palsy; no dysarthria Skin- warm & dry Results & Data Results & Data ([facility]) Vital Signs (Past 12 Hours) Vital Signs Temp Pulse Resp BP Pulse Ox 08/16/20 08:13 36.2 C L 82 22 117/67 94 08/16/20 03:00 36.5 C 79 18 104/61 94 Laboratory Results 08/16/20 08/16/20 08/16/20 Range/Units 08:10 06:15 06:08 WBC 21.39 H (4.8-10.8) K/uL RBC 3.12 L (4.7-6.1) M/uL Hgb 8.4 L (14.0-18.0) g/dL Hct 26.0 L (42-52) % MCV 83.3 (80-100) fL MCH 26.9 (25-34) pg MCHC 32.3 (32-36) g/dL RDW Std Deviation 48.7 H (36.4-46.3) fL RDW Coeff of Halle 16.5 H (11.5-14.5) % Plt Count 605 H (130-400) K/uL MPV 10.6 H (7.4-10.4) fL Absolute Nucleated RBC 0.08 H (0-0) K/uL Nucleated RBC % (auto) 0.4 % APTT 57.2 H* (21.0-31.0) Seconds PTT Ratio 2.1 Sodium (136-145) mmol/L Potassium (3.5-5.1) mmol/L Chloride (98-107) mmol/L Carbon Dioxide (21-32) mmol/L Anion Gap (3-11) BUN (7-18) mg/dl Creatinine (0.6-1.4) mg/dl Est Cr Clr Drug Dosing ml/min Est GFR ( Amer) Est GFR (Non-Af Amer) BUN/Creatinine Ratio (10-20) Glucose (70-99) mg/dl POC Glucose 205 H (70-99) mg/dl Calcium (8.5-10.1) mg/dl Phosphorus (2.5-4.9) mg/dl Magnesium (1.8-2.4) mg/dl Total Bilirubin (0.2-1) mg/dl AST (15-37) U/L ALT (12-78) U/L Alkaline Phosphatase (45-117) U/L Total Protein (6.4-8.2) gm/dl Albumin (3.4-5.0) gm/dl Globulin (2.5-4.0) gm/dl Albumin/Globulin Ratio (0.9-2) 08/16/20 08/15/20 08/15/20 Range/Units 06:08 20:13 16:27 WBC (4.8-10.8) K/uL RBC (4.7-6.1) M/uL Hgb (14.0-18.0) g/dL Hct (42-52) % MCV (80-100) fL MCH (25-34) pg MCHC (32-36) g/dL RDW Std Deviation (36.4-46.3) fL RDW Coeff of Halle (11.5-14.5) % Plt Count (130-400) K/uL MPV (7.4-10.4) fL Absolute Nucleated RBC (0-0) K/uL Nucleated RBC % (auto) % APTT (21.0-31.0) Seconds PTT Ratio Sodium 140 (136-145) mmol/L Potassium 4.9 D (3.5-5.1) mmol/L Chloride 109 H (98-107) mmol/L Carbon Dioxide 27 (21-32) mmol/L Anion Gap 4.0 (3-11) BUN 27 H (7-18) mg/dl Creatinine 1.43 H (0.6-1.4) mg/dl Est Cr Clr Drug Dosing 56.1 ml/min Est GFR ( Amer) 57.5 Est GFR (Non-Af Amer) 49.6 BUN/Creatinine Ratio 18.8 (10-20) Glucose 229 H (70-99) mg/dl POC Glucose 255 H 197 H (70-99) mg/dl Calcium 8.4 L (8.5-10.1) mg/dl Phosphorus 3.1 D (2.5-4.9) mg/dl Magnesium 1.4 L (1.8-2.4) mg/dl Total Bilirubin 0.2 (0.2-1) mg/dl AST 13 L (15-37) U/L ALT 10 L (12-78) U/L Alkaline Phosphatase 80 (45-117) U/L Total Protein 6.3 L (6.4-8.2) gm/dl Albumin 2.2 L (3.4-5.0) gm/dl Globulin 4.1 H (2.5-4.0) gm/dl Albumin/Globulin Ratio 0.5 L (0.9-2) 08/15/20 Range/Units 12:54 WBC (4.8-10.8) K/uL RBC (4.7-6.1) M/uL Hgb (14.0-18.0) g/dL Hct (42-52) % MCV (80-100) fL MCH (25-34) pg MCHC (32-36) g/dL RDW Std Deviation (36.4-46.3) fL RDW Coeff of Halle (11.5-14.5) % Plt Count (130-400) K/uL MPV (7.4-10.4) fL Absolute Nucleated RBC (0-0) K/uL Nucleated RBC % (auto) % APTT (21.0-31.0) Seconds PTT Ratio Sodium (136-145) mmol/L Potassium (3.5-5.1) mmol/L Chloride (98-107) mmol/L Carbon Dioxide (21-32) mmol/L Anion Gap (3-11) BUN (7-18) mg/dl Creatinine (0.6-1.4) mg/dl Est Cr Clr Drug Dosing ml/min Est GFR ( Amer) Est GFR (Non-Af Amer) BUN/Creatinine Ratio (10-20) Glucose (70-99) mg/dl POC Glucose 197 H (70-99) mg/dl Calcium (8.5-10.1) mg/dl Phosphorus (2.5-4.9) mg/dl Magnesium (1.8-2.4) mg/dl Total Bilirubin (0.2-1) mg/dl AST (15-37) U/L ALT (12-78) U/L Alkaline Phosphatase (45-117) U/L Total Protein (6.4-8.2) gm/dl Albumin (3.4-5.0) gm/dl Globulin (2.5-4.0) gm/dl Albumin/Globulin Ratio (0.9-2) Medications Administered Current Inpatient Medications Acetaminophen (Acetaminophen 325 Mg Tab) 325 mg PO Q6H PRN PRN Reason: Pain Stop: 09/11/20 22:15 Albuterol (Albuterol Hfa 8 Gm Inhaler) 2 puffs INH Q6H PRN PRN Reason: Shortness Of Breath Stop: 09/11/20 22:15 Aspirin (Aspirin 81 Mg Ectab) 81 mg PO DAILY SKYE Stop: 09/12/20 08:59 Last Admin: 08/16/20 08:37 Dose: 81 mg Documented by: Cyanocobalamin (Cyanocobalamin 500 Mcg Tablet (Vitamin B-12)) 1,000 mcg PO DAILY SKYE Stop: 09/12/20 08:59 Last Admin: 08/16/20 08:36 Dose: 1,000 mcg Documented by: Cyclobenzaprine HCl (Cyclobenzaprine Hcl 10 Mg Tab) 10 mg PO HS SKYE Stop: 09/11/20 22:59 Last Admin: 08/15/20 20:06 Dose: 10 mg Documented by: Dextrose (Dextrose 50% 50 Ml Syringe) 25 - 50 ml IV UD PRN; Protocol PRN Reason: Hypoglycemia Protocol Stop: 09/11/20 22:15 Duloxetine HCl (Duloxetine Hcl 60 Mg Cap) 60 mg PO PM SKYE Stop: 09/11/20 22:15 Last Admin: 08/15/20 21:08 Dose: 60 mg Documented by: Duloxetine HCl (Duloxetine Hcl 30 Mg Cap) 30 mg PO QPM SKYE Stop: 09/11/20 22:15 Last Admin: 08/15/20 21:08 Dose: 30 mg Documented by: Finasteride (Finasteride 5 Mg Tab) 5 mg PO DAILY SKYE Stop: 09/12/20 08:59 Last Admin: 08/16/20 08:37 Dose: 5 mg Documented by: Glucagon (Glucagon For Inj 1 Mg Vial) 1 mg SQ UD PRN; Protocol PRN Reason: Hypoglycemia Protocol Stop: 09/11/20 22:15 Glucose (Glucose 10 Tabs/Tube) 4 - 8 tabs PO UD PRN; Protocol PRN Reason: Hypoglycemia Protocol Stop: 09/11/20 22:15 Glucose (Glucose 40% Gel 15 Gm Tube) 15 - 30 gm PO UD PRN; Protocol PRN Reason: Hypoglycemia Protocol Stop: 09/11/20 22:15 Heparin Sodium/Dextrose (Heparin Sodium/Dextrose) 25,000 units in 500 mls @ 27 mls/hr IV .[id number] [facility]; Protocol Stop: 09/11/20 16:29 Last Titration: 08/16/20 07:10 Dose: 1,350 units/hr, 27 mls/hr Documented by: Metronidazole (Flagyl) 500 mg in 100 mls @ 100 mls/hr IV Q8H [facility] Stop: 08/23/20 13:59 Last Infusion: 08/16/20 06:23 Dose: Infused Documented by: Pantoprazole Sodium 40 mg/ (Syringe) 10 mls @ 5 mls/min IV BID [facility] Stop: 09/13/20 10:29 Last Admin: 08/16/20 08:38 Dose: 5 mls/min Documented by: Dexamethasone 6 mg/ Syringe 1.5 mls @ 1 mls/min IV QAM [facility] Stop: 09/13/20 10:29 Last Admin: 08/16/20 08:38 Dose: 1 mls/min Documented by: Doxycycline Hyclate 100 mg/ (Dextrose) 110 mls @ 50 mls/hr IV Q12H [facility] Stop: 08/21/20 10:59 Last Infusion: 08/16/20 03:31 Dose: Infused Documented by: Remdesivir 100 mg/ Sodium (Chloride) 250 mls @ 250 mls/hr IV Q24H [facility]; Protocol Stop: 08/18/20 12:59 Last Infusion: 08/15/20 14:13 Dose: Infused Documented by: Ampicillin Sodium/Sulbactam Sodium 3,000 mg/ Sodium Chloride 108 mls @ 216 mls/hr IV Q6H [facility] Stop: 08/24/20 15:59 Last Infusion: 08/16/20 09:49 Dose: Infused Documented by: Insulin Aspart (Insulin Aspart 100 Units/Ml 3 Ml Pen) 0 units SC ACHS [facility] Stop: 09/14/20 11:29 Last Admin: 08/16/20 09:03 Dose: 18 units Documented by: Insulin Glargine (Insulin Glargine Solostar 100 Units/Ml 3 Ml Pen) 20 units SC BID [facility] Stop: 09/14/20 16:59 Last Admin: 08/16/20 09:04 Dose: 20 units Documented by: Insulin Human NPH (Insulin Human Nph) 30 units SC DAILY [facility]; Protocol Stop: 09/13/20 10:29 Last Admin: 08/16/20 09:04 Dose: 30 units Documented by: Magnesium Oxide (Magnesium Oxide 400 Mg Tab) 400 mg PO DAILY SKYE Stop: 09/12/20 08:59 Last Admin: 08/16/20 08:37 Dose: 400 mg Documented by: Metoprolol Tartrate (Metoprolol Tartrate 25 Mg Tab) 25 mg PO BID [facility] Stop: 09/12/20 20:59 Last Admin: 08/16/20 08:35 Dose: 25 mg Documented by: Miscellaneous (Carbohydrates For Hypoglycemia ) 15 - 30 gm PO UD PRN PRN Reason: Hypoglycemia Protocol Stop: 09/11/20 22:15 Miscellaneous Information (Pharmacy Glycemic Mgmt Consult) 1 ea N/A UD [facility] Stop: 09/12/20 11:19 Morphine Sulfate (Morphine Sulfate Ir 15 Mg Tab (Immediate Release)) 15 mg PO BID [facility] Stop: 08/26/20 22:15 Last Admin: 08/16/20 09:04 Dose: 15 mg Documented by: Potassium Phosphate (Pot Phosphate Monobasic W/ Sod Tab) 1 tab PO QID [facility] Stop: 09/14/20 12:59 Last Admin: 08/16/20 08:36 Dose: 1 tab Documented by: Pregabalin (Pregabalin 100 Mg Cap) 100 mg PO TID [facility] Stop: 09/11/20 22:15 Last Admin: 08/16/20 09:04 Dose: 100 mg Documented by: Rosuvastatin Calcium (Rosuvastatin Calcium 20 Mg Tab) 40 mg PO DAILY [facility] Stop: 09/12/20 08:59 Last Admin: 08/16/20 08:37 Dose: 40 mg Documented by: Sodium Chloride (Sodium Chloride 0.9% 10ml Flush) 30 ml IV Q24H [facility] Stop: 08/18/20 11:01 Last Admin: 08/15/20 12:17 Dose: 30 ml Documented by: Topiramate (Topiramate 25 Mg Tab) 25 mg PO BID [facility] Stop: 09/11/20 22:15 Last Admin: 08/16/20 08:36 Dose: 25 mg Documented by: Vitamin D (Cholecalciferol 1,000 Units 25 Mcg Tab) 5,000 units PO DAILY [facility] Stop: 09/12/20 08:59 Last Admin: 08/16/20 08:36 Dose: 5,000 units Documented by:
[2020-08-16] MEDS: REMDESIVIR 100 MG in SODIUM CHLORIDE 0.9% 230 ML IV SCH (12:05)
[2020-08-16] MEDS: SODIUM CHLORIDE 0.9% 10ML FLUSH IV SCH (12:05)
--- NOTE | 2020-08-16 14:25 | Pharmacy Report ---
Glycemic Control Progress Note - Date of Service August 16, 2020 - Scope Glycemic Pharmacist consulted for glycemic control to write orders per [facility] inpatient glycemic control protocol. - Objective Accuchecks BSG(last 24 hours):: 08/15/20 08/15/20 08/16/20 16:27 20:13 06:08 Glucose 229 H POC Glucose 197 H 255 H 08/16/20 08/16/20 08:10 11:41 Glucose POC Glucose 205 H 272 H HbA1c:: Hemoglobin A1c 9.4 % (4.5-5.6) H 08/13/20 03:05 - Recent Pertinent Medications The patient is currently receiving: * Basal insulin: Lantus 20 units every 12 hours + NPH 30 units daily * Correctional Insulin: Novolog Correction per scale ACHS Goal Range: Low 110 mg/dL - High 140 mg/dL Correction Factor: 10 mg/dL/unit * Prandial insulin: Per carb ratio of 1 unit per 3 grams CHO consumed - Outpatient Anti-Diabetic Meds Lantus 20 units qAM plus Tradjenta 5 mg daily - Assessment & Plan ASSESSMENT: * See progress note from 08/13/2020 for more background info, in short: * Pt receiving SQ basal bolus insulin regimen for hyperglycemia secondary to baseline DM (outpatient regimen on hold),stress/infection (COVID 19 positive on Remdisivir), and dexamethasone 6 mg IV daily. * Patient is currently receiving an average of 128 units of insulin per day * 70 units of basal insulin * 58 units of prandial/correctional insulin * BSGs ranging 197 - 259 mg/dl over the past 24hrs * Changes needed to insulin regimen: * AM Fasting BSG = 200 mg/dl. This is above goal range for patient based on inpatient targets and co-morbidities. After discussion with glycemic team and Dr Dumont, will change patient's basal range. Change back to home regimen of Lantus 20 units daily plus NPH 30 units BIDM to account for steroid hyperglycemia. Provide overnight checks to ensure 24 hour coverage. * Post-prandial BSGs were elevated. Tightened CF/CR. * Total daily dose = >140 units. PLAN FOR INPATIENT GLYCEMIC CONTROL: * DECREASING Lantus to 20 units SQ daily plus INCREASING NPH to 30 units SQ BIDM * TIGHTENING correction factor to 8 mg/dl/unit * TIGHTENING carb ratio to 1 unit per 2 grams CHO consumed * Continuing goal range of Low 110 mg/dL - High 140 mg/dL * Please note that the plan above was derived based on current level of insulin resistance and hospital stress. These recommendations are appropriate for inpatient admission only. Plan of care upon discharge will need to be reassessed to avoid potential outpatient hypo/hyperglycemia. Thank you.
[2020-08-16] MEDS ORDERED: INSULIN HUMAN NPH SC SCH (17:00)
[2020-08-16] MEDS ORDERED: POLYETHYLENE (MIRALAX) 17 GM PACK PO PRN (17:17)
[2020-08-16] MEDS: HEPARIN SODIUM/DEXTROSE 25,000 UNITS/500 ML BAG IV SCH (17:46)
[2020-08-16] MEDS: CYCLOBENZAPRINE HCL 10 MG TAB PO SCH (21:02)
[2020-08-16] MEDS: DULoxetine HCL 60 MG CAP PO SCH (21:13)
[2020-08-16] MEDS: DULoxetine HCL 30 MG CAP PO SCH (21:13)
[2020-08-16] MEDS: CARBOHYDRATES FOR HYPOGLYCEMIA PO PRN ×2 (23:21→23:45)
[2020-08-17] MEDS: INSULIN ASPART 100 UNITS/ML 3 ML PEN SC SCH ×6 (00:06→21:41)
[2020-08-17] MEDS: DEXTROSE 50% 50 ML SYRINGE IV PRN ×3 (00:49→17:36)
[2020-08-17] MEDS ORDERED: DEXTROSE 5% 1,000 ML IV SCH (01:45)
[2020-08-17] MEDS: AMPICILLIN/SULBACTAM SOD 3,000 MG in 0.9 % SODIUM CHLORIDE 100 ML IV SCH ×4 (04:39→21:02)
--- NOTE | 2020-08-17 05:44 | Communication Note ---
Date of Service: August 17, 2020 Made aware by RN of hypoxemia. Patient now requiring 7 L to keep O2 sats greater than 90% from 2 L last night. Patient not complaining of shortness of breath as per RN. Chest x-ray as per my interpretation : Worsening bilateral pulmonary opacities left greater than the right AP Worsening hypoxemic respiratory failure Severe COVID-19 pneumonia Baseline ABG Continue Decadron and Remdesivir Pulmonary consult in a.m. Will relay to AM provider.
[2020-08-17 06:23] LABS: Hematocrit (blood only) 29.4 % (42-52); Hemoglobin 9.7 g/dL (14.0-18.0); Mean Corpuscular Hemoglobin 27.2 pg (25-34); Mean Corpuscular Volume 82.6 fL (80-100); Mean Platelet Volume 10.5 fL (7.4-10.4); Nucleated RBC # (auto) 0.21 K/uL (0-0); Platelet Count 727 K/uL (130-400); RDW Coefficient of Variation 16.8 % (11.5-14.5); RDW Standard Deviation 49.9 fL (36.4-46.3); Red Blood Count 3.56 M/uL (4.7-6.1); White Blood Count 21.65 K/uL (4.8-10.8)
[2020-08-17 06:27] LABS: Base Excess ABG -0.7 mEq/L (-9-1.8); HCO3 ABG 22 mmol/L (19-24); Oxygen Saturation ABG 85.1 % (90-95); PCO2 ABG 30 mmHg (35-46); PO2 ABG 48 mmHg (80-95); pH ABG 7.48 (7.35-7.45)
[2020-08-17] MEDS: metroNIDAZOLE 500 MG/100 ML BAG IV SCH (06:29)
[2020-08-17] MEDS: dexAMETHasone 6 MG in SYRINGE 0 ML IV SCH (06:30)
[2020-08-17 06:31] LABS: Allen Test Pos (Pos)
--- NOTE | 2020-08-17 06:41 | XRay Report ---
XR chest 1V portable HISTORY: 70 years-old Male low o2 acute hypoxia COMPARISON: Chest radiograph 08/13/2020 TECHNIQUE: Portable AP view of the chest FINDINGS: Patient is slightly rotated. Cardiomegaly with prior median sternotomy. No pneumothorax. Extensive le ft greater than right bilateral mixed interstitial and alveolar opacities have progressively worsened . Small pleural effusions. Bones appear grossly intact. Degenerative changes of the shoulders and spi ne. IMPRESSION: 1. Cardiomegaly with progressively worsened left greater than right extensive mixed interstitial and alveolar opacities suggestive of multifocal pneumonia. Superimposed pulmonary edema would be difficul t to exclude. 2. Small pleural effusions. ACT 112: Negative or not required by law. The above report was generated using voice recognition software. It may contain grammatical, syntax o r spelling errors. Electronically signed by: Robbie Davidson M.D. 08/17/2020 6:40 AM
[2020-08-17 06:44] LABS: Partial Thromboplastin Ratio 1.5; Partial Thromboplastin Time 42.3 Seconds (21.0-31.0)
[2020-08-17 06:50] LABS: Albumin Globulin Ratio 0.5 (0.9-2); Albumin Level 2.5 gm/dl (3.4-5.0); BUN Creatinine Ratio 20.5 (10-20); Bilirubin,Total 0.2 mg/dl (0.2-1); Calcium 8.5 mg/dl (8.5-10.1); Creatinine Clr Calc Pharmacy 55.4 ml/min; Est GFR (African American) 62.2; Est GFR (Non-African American) 53.7; Globulin 4.7 gm/dl (2.5-4.0); Potassium 3.7 mmol/L (3.5-5.1); Total Protein 7.2 gm/dl (6.4-8.2)
[2020-08-17] MEDS ORDERED: FUROSEMIDE 20 MG in SYRINGE 0 ML IV ONE ×2 (07:00→07:30)
[2020-08-17] MEDS: LEVALBUTEROL TARTRATE 15 GM HFA.AER.AD INH SCH ×3 (07:08→19:25)
[2020-08-17] MEDS: POT PHOSPHATE MONOBASIC W/ SOD TAB PO SCH ×4 (08:00→21:03)
[2020-08-17] MEDS: ASPIRIN 81 MG ECTAB PO SCH (08:00)
[2020-08-17] MEDS: CHOLECALCIFEROL 1,000 UNITS 25 MCG TAB PO SCH (08:00)
[2020-08-17] MEDS: TOPIRAMATE 25 MG TAB PO SCH ×2 (08:00→21:03)
[2020-08-17] MEDS: ROSUVASTATIN CALCIUM 20 MG TAB PO SCH (08:00)
[2020-08-17] MEDS: CYANOCOBALAMIN 500 MCG TABLET (VITAMIN B-12) PO SCH (08:00)
[2020-08-17] MEDS: METOPROLOL TARTRATE 25 MG TAB PO SCH ×2 (08:00→21:04)
[2020-08-17] MEDS: MAGNESIUM OXIDE 400 MG TAB PO SCH (08:01)
[2020-08-17] MEDS: PREGABALIN 100 MG CAP PO SCH ×3 (08:02→21:00)
[2020-08-17] MEDS: MoRPHine SULFATE IR 15 MG TAB (IMMEDIATE RELEASE) PO SCH ×2 (08:03→21:00)
[2020-08-17] MEDS: PANTOprazole 40 MG in SYRINGE 0 ML IV SCH ×2 (08:03→21:00)
[2020-08-17] MEDS: INSULIN HUMAN NPH SC SCH (09:15)
[2020-08-17] MEDS: FINASTERIDE 5 MG TAB PO SCH (09:16)
[2020-08-17] MEDS: INSULIN GLARGINE SOLOSTAR 100 UNITS/ML 3 ML PEN SC SCH (09:16)
[2020-08-17] MEDS: REMDESIVIR 100 MG in SODIUM CHLORIDE 0.9% 230 ML IV SCH (13:09)
[2020-08-17] MEDS: DOXYCYCLINE HYCLATE 100 MG in DEXTROSE 5% 100 ML IV SCH ×2 (13:09→22:01)
[2020-08-17] MEDS: SODIUM CHLORIDE 0.9% 10ML FLUSH IV SCH (13:09)
[2020-08-17] MEDS: HEPARIN SODIUM/DEXTROSE 25,000 UNITS/500 ML BAG IV SCH ×5 (13:12→16:01)
[2020-08-17 13:28] LABS: Partial Thromboplastin Ratio 3.1
--- NOTE | 2020-08-17 13:33 | Pulmonary Consultation ---
Date of Consultation August 17, 2020 Assessment & Plan (1) COVID-19: Remdesivir and Decadron are reasonable therapies at this point. However, the efficacy of these medications is unclear after being initiated several days after start of symptoms at diagnosis. A close eye should be kept on his blood glucose given his history of diabetes mellitus. He is in fact hyperglycemic at this point. He is likely heading towards severe/critical illness if not already there. It appears that he is a DNR/DNI. BiPAP is reasonable at this point as it does appear that he has a significant CHF component to his hypoxia. His intake and output suggest a 5.9L positive fluid balance. His proBNP is also elevated. He does have evidence of moderate to severe mitral valve regurgitation on the echo. I would recommend diuretic therapy with Lasix. It appears that he was given 40 mg of IV Lasix this morning with some improvement. I recommend switching his D5 to D10 to limit excess volume intake. Self and awake proning can be considered if feasible. I would recommend repeating a procalcitonin level. If repeat procalcitonin level is negative, I would not suspect that there is a bacterial pneumonia. However, doxycycline can be completed for a total of 5 days. Urine Legionella antigen be obtained as well. Pulmonary will follow from the periphery. Thank you for the consult. I did speak with the bedside RN discussed patient's status. (2) Acute hypoxemic respiratory failure: (3) Coronary artery disease: (4) Diabetes mellitus: History of Present Illness Reason for Consultation: Covid pneumonia and hypoxemic respiratory failure Requesting Physician: Hospitalist service Attending Physician: Lea Beasley MD History of Present Illness It should be noted that due to the COVID-19 pandemic and due to this patient's COVID-19 positivity, direct interview and physical exam were deferred. Please refer to the hospitalist's progress notes for further details regarding the patient's history and physical portions. 70-year-old male with past medical history of atrial fibrillation, anemia of chronic disease, diabetes mellitus, coronary artery bypass grafting and history of aortic valve replacement who originally presented to the hospital on 08/12/2020 due to atrial fibrillation of new onset with rapid ventricular response. Patient has been on a heparin drip. Cardiology was consulted. Cardiology is recommending continued use of beta-blockers and heparin. His initial chest x-rays did not show any acute infiltrates. He was not started on remdesivir dexamethasone until last night due to the fact that he did not require any supplemental oxygen and chest x-rays were normal. He was initially on ceftriaxone and doxycycline but recently switched to Unasyn due to his urine cultures. Apparently has had increasing oxygen requirements and there was a note documented by the hospitalist that he was requiring upwards of 7 L of oxygen. Pulmonary was consulted due to increasing oxygen requirements. ABG obtained on 10 L today demonstrated pH of 7.48, PCO2 of 30, PO2 of 48. He is currently requiring BiPAP. He has had evidence of hypoglycemia and his glucose has been down to 46. He is currently on a low-dose of D5W infusion. His urine cultures growing Enterococcus facialis. His white count was 21.65. COVID-19 testing was positive on 08/12/2020. It does not appear that a ferritin or ESR were obtained. Procalcitonin on admission was 0.5. MRSA screen on 08/13/2020 was negative. Limited echocardiogram demonstrated moderate to severe mitral regurg. EF of 60 to 65%. Aortic valve sclerosis of a moderate degree. Left atrium was moderately dilated. Right ventricle is normal. Chest x-ray completed today with interstitial and alveolar infiltrates. Small bilateral effusions noted. CT abdomen from 08/15/2020 reviewed as well which demonstrated small bilateral effusions and groundglass opacities. Mild bilateral hydronephrosis which had improved from previous exams. Urinary bladder wall thickening was noted. There is also evidence of abdominal pelvic ascites and anasarca. proBNP has been elevated [place] 5067. Should also be noted that the patient had an emergency department visit on 07/07/2020 due to findings of low blood pressure and fall. He was discharged home at that point. He was also in the emergency department on 06/28/2020 due to hyperglycemia and possible UTI. Appears that on presentation during this hospitalization, the patient is presenting for shortness of breath associate with exertion and palpitations. He apparently was recently discharged from a [facility] to his home. Allergies Allergy/AdvReac Type Severity Reaction Status Date / Time No Known Drug Allergies Allergy Unknown Verified 08/12/20 17:34 Home Medications Home Medications Medication Instructions Recorded Confirmed Type acetaminophen 325 mg PO Q6H PRN 10/30/18 08/12/20 History aspirin 81 mg PO DAILY 10/30/18 08/12/20 History cholecalciferol (vitamin D3) 125 mcg PO DAILY #0 10/30/18 08/12/20 History [Vitamin D3] cyanocobalamin (vitamin B-12) 1,000 mcg PO DAILY #0 10/30/18 08/12/20 History [Vitamin B-12] duloxetine 60 mg PO PM 10/30/18 08/12/20 History finasteride 5 mg PO DAILY 10/30/18 08/12/20 History metformin 2,000 mg PO PM 10/30/18 08/12/20 History metoprolol tartrate 37.5 mg PO BID 10/30/18 08/12/20 History cyclobenzaprine 10 mg PO HS 07/07/20 08/12/20 History morphine 15 mg PO BID 07/07/20 08/12/20 History omeprazole 20 mg PO DAILY 07/07/20 08/12/20 History pregabalin 100 mg PO TID 07/07/20 08/12/20 History rosuvastatin 40 mg PO DAILY 07/07/20 08/12/20 History topiramate 25 mg PO BID 07/07/20 08/12/20 History duloxetine 30 mg PO QPM 08/12/20 08/12/20 History insulin glargine [Lantus U-100 20 unit SUBCUT QAM 08/12/20 08/12/20 History Insulin] linagliptin [Tradjenta] 5 mg PO DAILY 08/12/20 08/12/20 History magnesium oxide 400 mg PO DAILY 08/12/20 08/12/20 History nystatin 1 applic TOPICAL UD 08/12/20 08/12/20 History potassium chloride 10 meq PO BID 08/12/20 08/12/20 History Patient History Medical History (Updated 08/17/20 @ 13:27 by Dmitry Greene MD) Acute hypoxemic respiratory failure 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 BPH (benign prostatic hyperplasia) CAD (coronary artery disease) Chronic pain due to trauma Coronary artery disease Depression Diabetes mellitus Diabetes mellitus Drug induced constipation Former cigarette smoker HTN (hypertension) KEMI (obstructive sleep apnea) UTI symptoms Surgical History Heart valve replaced History of appendectomy History of tonsillectomy Hx of CABG S/P AVR (aortic valve replacement) Family History Mother Skin cancer Sister Intestinal cancer Social History Smoking Status: Former smoker Second Hand Exposure: No; Hx Alcohol Use: No Hx Substance Use: No Preferred Language: Korean Communication Ability: Effective Transformer Maker Required: No Beliefs That Will Affect Care: None Current Living Situation: Alone Other Information That Helps Us Care for You: No Feels Safe at Home: Yes Safety Concerns: Feels Safe At This Time Assistive Devices: Oxygen - Continuous Review of Systems Review of Systems: Please refer to the hospitalist review of systems. Physical Exam Physical Exam: Physical exam is deferred due to the COVID-19 pandemic. Please refer to the hospitalist physical exam. Results & Data Results & Data ([facility]) Vital Signs (Past 12 Hours) Vital Signs Temp Pulse Pulse Resp BP Pulse Ox 08/17/20 12:16 98.6 F 78 22 90/50 L 96 08/17/20 11:33 78 24 92 08/17/20 08:34 99.1 F 77 24 116/57 L 89 L 08/17/20 07:09 95 H 22 95 08/17/20 06:43 90 08/17/20 05:08 90 08/17/20 04:19 97.9 F 93 H 18 125/73 82 L I reviewed the vital signs, labs and chest imaging PG Care Time/CCT Total # of Minutes Spent Total Time Spent with Patient: Total time spent is greater than 50% in coordination of care (as documented) at patient's floor/unit and/or counseling patient: Coding Level of Care Code 85166 Initial Inpt Care Lvl 2 Diagnoses COVID-19 U07.1 Acute hypoxemic respiratory failure J96.01 Coronary artery disease I25.10 Diabetes mellitus E11.9 Time Spent (min) 36
[2020-08-17 13:54] LABS: Partial Thromboplastin Time 86.4 Seconds (21.0-31.0)
--- NOTE | 2020-08-17 14:38 | Pharmacy Report ---
Glycemic Control Progress Note - Date of Service August 17, 2020 - Scope Glycemic Pharmacist consulted for glycemic control to write orders per [facility] inpatient glycemic control protocol. - Objective Accuchecks BSG(last 24 hours):: 08/16/20 08/16/20 08/16/20 15:36 21:04 23:16 Glucose POC Glucose 234 H 130 H 51 L* 08/16/20 08/16/20 08/16/20 23:19 23:39 23:44 Glucose POC Glucose 48 L* 51 L* 57 L* 08/16/20 08/17/20 08/17/20 23:59 00:01 00:36 Glucose POC Glucose 59 L* 64 L* 55 L* 08/17/20 08/17/20 08/17/20 00:38 01:25 04:27 Glucose POC Glucose 59 L* 82 70 08/17/20 08/17/20 08/17/20 06:03 08:05 08:08 Glucose 79 POC Glucose 46 L* 46 L* 08/17/20 08/17/20 08:30 12:14 Glucose POC Glucose 82 78 HbA1c:: Hemoglobin A1c 9.4 % (4.5-5.6) H 08/13/20 03:05 - Recent Pertinent Medications The patient is currently receiving: * Basal insulin: Lantus 20 units every 24 hours plus NPH 30 units BIDM * Correctional Insulin: Novolog Correction per scale ACHS Goal Range: Low 110 mg/dL - High 140 mg/dL Correction Factor: 8 mg/dL/unit * Prandial insulin: Per carb ratio of 1 unit per 2 grams CHO consumed - Outpatient Anti-Diabetic Meds Lantus 20 units in the morning plus Linagliptin 5 mg daily - Assessment & Plan ASSESSMENT: * See progress note from 08/17/20 for more background info, in short: * Pt receiving SQ basal bolus insulin regimen for hyperglycemia secondary to baseline DM (outpatient regimen on hold). Patient is COVID 19 positive and is receiving dexamethasone 6 mg IV daily with remdesivir * Patient is currently receiving an average of 169 units of insulin per day * 80 units of basal insulin * 89 units of prandial/correctional insulin * BSGs ranging 49 - 272 mg/dl over the past 24hrs * Changes needed to insulin regimen: * AM Fasting BSG = 46 mg/dl. This is significantly goal range for patient based on inpatient targets and co-morbidities. The patient received 20 unit of Lantus and 60 units of NPH yesterday. This was only 10 units more of basal compared to the day prior .... and yesterday morning patient's f asting was 200 mg/dL. Cut evening dose of NPH which will reduce basal insulin by 50% (reasonable for sustained lows). Do not want to aggressive cut insulin at this point to lead to a rebound in blood sugars. * Post-prandial BSGs are much lower today after large doses yesterday. Loosen CF/CR to weight based stress of 3 for now. * Total daily dose = ? units. Currently unclear with patient's clinical deterioration. Will monitor. PLAN FOR INPATIENT GLYCEMIC CONTROL: * Continuing Lantus 20 units SQ daily and DECREASING NPH to 30 units daily * LOOSENING correction factor to 20 mg/dl/unit * LOOSENING carb ratio to 1 unit per 6 grams CHO consumed * Continuing goal range of Low 110 mg/dL - High 140 mg/dL * Please note that the plan above was derived based on current level of insulin resistance and hospital stress. These recommendations are appropriate for inpatient admission only. Plan of care upon discharge will need to be reassessed to avoid potential outpatient hypo/hyperglycemia. Thank you.
--- NOTE | 2020-08-17 15:46 | Hospitalist Progress Note ---
Date of Service August 17, 2020 Assessment & Plan (1) Atrial fibrillation, new onset: Present on admission with shortness of breath on exertion associated with palpitations EKG on admission showed A. fib with HR 97 Possible related to electrolyte imbalance due to diarrhea and acute infection with covid 19 Was started on a IV heparin drip in the ER due to high [id number] score Echo obtained and Cardiology consulted - Afib d/t acute illness, cont. IV heparin and treat underlying illness Continued metoprolol 37.5 mg BID -> switched to 25 BID w/ digoxin d/t hypotension Will monitor closely in tele Currently HR well controlled and BP is on the lower side with systolic 90 and diastolic 50 + COVID 19 CXR showed no active disease in the chest on admission Denies any recent exposure to anyone testing positive with COVID 19 Recently discharged from [facility], about 10 days ago saturated well on RA on admission, now on 2L and later saturation went down And dexamethasone and remdesivir started (08/14) Started ceftriaxone and doxy, but given urine cultx, switched ceft to unasyn Appreciate pulmonary input and recommendation Will check Procalcitonin, Ferritin, ESR and CRP Elevated troponin Mostly related to Afib Troponin on admission 0.067 EKG showed no ischemic changes Already on Heparin drip for Afib currently denies any chest pain Follow up echo Continue aspirin, statin and metoprolol KENIA Possible related to dehydration due to diarrhea Creatinine on admission 1.66 (baseline 1.2-1.3) received IVF in the ER , continued IV hydration Will avoid nephrotoxic agents Continue monitor BMP Cr much improved ~1.2 Electrolytes Imbalance Mg 1.3 and K 2.7 and Na 129 on admission, Phos low as well Replete and monitor electrolyte imbalance likely d/t diarrheal illness, poor oral intake Now improved Elevated WBC Possible related to +COVID 19 lactate normal and afebrile Start Abx given hypotension and significantly elevated WBC (likely 2/2 COVID and UTI) Continue monitor CBC UTI UA positive for Leukocytes and bacteria Elevated WBC Pt reports lower abd. pain, mostly LLQ Ucltx - posit. for Enterococcus faecalis Switched ceftriaxone to Unasyn given urine cultx (08/14) LLQ abd. pain - in the setting of anemia - also hx of diarrhea prior to admission - stool cultx, c. diff ordered - sample uncollected - obtained CT abdomen/pelvis - no acute process Anemia - initial Hgb 11, now about 8 - pt was given IVF - FOBT ordered - obtained CT abd.pelvis to r/o any bleed, no acute process DM type 2 uncontrolled DM, last Hba1c 11.6 on 06/26 Will hold oral diabetes med (metformin, trajenta and Januvia) Will continue lantus and add novolog sliding scale during the hospital course Continue monitor BS Dyslipidemia Recent lipid panel on 08/10 with Chol 99, HDL 32 and LDL 46 Continue statin stable L AKA fall precaution Consider PT/OT once symptoms improve DVT px on IV heparin drip CODE STATUS DNR as per pt wishes Disposition : discharge once medically stable Contacted and updated pt's sister, who is very appreciative of updates. Also confirmed DNR/DNI status with pt and his sister over the phone. Discussed with patient's sister again today 08/17/2020 Admission and Anticipated Discharge Date Admission Date: August 12, 2020 Subjective The patient was seen and examined in telemetry unit He was noted to have increasing shortness of breath with decreasing saturations since last night Noted to have increasing lung opacity on x-ray and has been receiving intravenous Lasix A little bit better this morning during examination Denies any significant symptoms Review of Systems Review of Systems: All systems reviewed and are unremarkable except as noted below Respiratory: + cough and + dyspnea (Minimal dyspnea at rest) Cardiovascular: no chest pain Musculoskeletal: Generally weak but no acute arthritis in any joint Physical Exam Physical Exam: Lying in bed with minimal distress due to shortness of breath Constitutional: well developed, well nourished, + acute distress (Due to shortness of breath) and + obese Eyes: PERRL, conjunctivae normal, anicteric sclerae ENMT: external ear and nose normal, oropharynx normal Neck: trachea midline, no thyromegaly Respiratory: + respiratory distress; no labored breathing Auscultation: + diminished lung sounds, + crackles (At the bases) and + wheezes (Minimal wheezing bilaterally) Neurologic: moves all extremities Alert and awake. Severely deaf Lymphatic: no cervical or axillary lymphadenopathy Results & Data Results & Data ([facility]) Vital Signs (Past 12 Hours) Vital Signs Temp Pulse Pulse Resp BP Pulse Ox 08/17/20 15:31 101 H 98 08/17/20 12:16 37.0 C 78 22 90/50 L 96 08/17/20 11:33 78 24 92 08/17/20 08:34 37.3 C 77 24 116/57 L 89 L 08/17/20 07:09 95 H 22 95 08/17/20 06:43 90 08/17/20 05:08 90 08/17/20 04:19 36.6 C 93 H 18 125/73 82 L Laboratory Results Short CBC 08/17/20 Range/Units 06:03 WBC 21.65 H (4.8-10.8) K/uL Hgb 9.7 L (14.0-18.0) g/dL Hct 29.4 L (42-52) % Plt Count 727 H (130-400) K/uL BMP 08/17/20 06:03 Sodium 141 Potassium 3.7 D Chloride 107 Carbon Dioxide 28 BUN 28 H Creatinine 1.34 Glucose 79 Calcium 8.5 Liver Function 08/17/20 Range/Units 06:03 Total Bilirubin 0.2 (0.2-1) mg/dl AST 15 (15-37) U/L ALT 11 L (12-78) U/L Alkaline Phosphatase 89 (45-117) U/L Albumin 2.5 L (3.4-5.0) gm/dl Medications Administered Current Inpatient Medications Acetaminophen (Acetaminophen 325 Mg Tab) 325 mg PO Q6H PRN PRN Reason: Pain Stop: 09/11/20 22:15 Albuterol (Albuterol Hfa 8 Gm Inhaler) 2 puffs INH Q6H PRN PRN Reason: Shortness Of Breath Stop: 09/11/20 22:15 Aspirin (Aspirin 81 Mg Ectab) 81 mg PO DAILY [facility] Stop: 09/12/20 08:59 Last Admin: 08/17/20 08:00 Dose: 81 mg Documented by: Cyanocobalamin (Cyanocobalamin 500 Mcg Tablet (Vitamin B-12)) 1,000 mcg PO DAILY SKYE Stop: 09/12/20 08:59 Last Admin: 08/17/20 08:00 Dose: 1,000 mcg Documented by: Cyclobenzaprine HCl (Cyclobenzaprine Hcl 10 Mg Tab) 10 mg PO HS SKYE Stop: 09/11/20 22:59 Last Admin: 08/16/20 21:02 Dose: 10 mg Documented by: Dextrose (Dextrose 50% 50 Ml Syringe) 25 - 50 ml IV UD PRN; Protocol PRN Reason: Hypoglycemia Protocol Stop: 09/11/20 22:15 Last Admin: 08/17/20 08:14 Dose: 50 ml Documented by: Duloxetine HCl (Duloxetine Hcl 60 Mg Cap) 60 mg PO PM [facility]YE Stop: 09/11/20 22:15 Last Admin: 08/16/20 21:13 Dose: 60 mg Documented by: Duloxetine HCl (Duloxetine Hcl 30 Mg Cap) 30 mg PO QPM [facility] Stop: 09/11/20 22:15 Last Admin: 08/16/20 21:13 Dose: 30 mg Documented by: Finasteride (Finasteride 5 Mg Tab) 5 mg PO DAILY [facility]YE Stop: 09/12/20 08:59 Last Admin: 08/17/20 09:16 Dose: 5 mg Documented by: Glucagon (Glucagon For Inj 1 Mg Vial) 1 mg SQ UD PRN; Protocol PRN Reason: Hypoglycemia Protocol Stop: 09/11/20 22:15 Glucose (Glucose 10 Tabs/Tube) 4 - 8 tabs PO UD PRN; Protocol PRN Reason: Hypoglycemia Protocol Stop: 09/11/20 22:15 Glucose (Glucose 40% Gel 15 Gm Tube) 15 - 30 gm PO UD PRN; Protocol PRN Reason: Hypoglycemia Protocol Stop: 09/11/20 22:15 Heparin Sodium/Dextrose (Heparin Sodium/Dextrose) 25,000 units in 500 mls @ 29 mls/hr IV .[id number] [facility]YE; Protocol Stop: 09/11/20 16:29 Last Titration: 08/17/20 14:18 Dose: 1,300 units/hr, 26 mls/hr Documented by: Pantoprazole Sodium 40 mg/ (Syringe) 10 mls @ 5 mls/min IV BID SKYE Stop: 09/13/20 10:29 Last Admin: 08/17/20 08:03 Dose: 5 mls/min Documented by: Doxycycline Hyclate 100 mg/ (Dextrose) 110 mls @ 50 mls/hr IV Q12H [facility] Stop: 08/21/20 10:59 Last Infusion: 08/17/20 15:14 Dose: Infused Documented by: Remdesivir 100 mg/ Sodium (Chloride) 250 mls @ 250 mls/hr IV Q24H [facility]; Protocol Stop: 08/18/20 12:59 Last Infusion: 08/17/20 14:18 Dose: Infused Documented by: Ampicillin Sodium/Sulbactam Sodium 3,000 mg/ Sodium Chloride 108 mls @ 216 mls/hr IV Q6H [facility] Stop: 08/24/20 15:59 Last Admin: 08/17/20 15:13 Dose: 216 mls/hr Documented by: Dextrose (D5w) 1,000 mls @ 60 mls/hr IV .[id number] [facility] Stop: 09/16/20 01:44 Last Infusion: 08/17/20 04:37 Dose: 60 mls/hr Documented by: Dexamethasone 6 mg/ Syringe 1.5 mls @ 1 mls/min IV QAM [facility] Stop: 09/16/20 04:54 Last Admin: 08/17/20 06:30 Dose: 1 mls/min Documented by: Insulin Aspart (Insulin Aspart 100 Units/Ml 3 Ml Pen) 0 units SC ACHS [facility] Stop: 09/14/20 11:29 Last Admin: 08/17/20 13:09 Dose: Not Given Documented by: Insulin Glargine (Insulin Glargine Solostar 100 Units/Ml 3 Ml Pen) 20 units SC DAILY [facility] Stop: 09/16/20 08:59 Last Admin: 08/17/20 09:16 Dose: Not Given Documented by: Insulin Human NPH (Insulin Human Nph) 30 units SC DAILY@0800 [facility]; Protocol Stop: 09/16/20 07:59 Last Admin: 08/17/20 09:15 Dose: Not Given Documented by: Levalbuterol HCl (Levalbuterol Tartrate 15 Gm Hfa.Aer.Ad) 2 puffs INH Q6H [facility] Stop: 09/16/20 05:59 Last Admin: 08/17/20 11:32 Dose: Not Given Documented by: Magnesium Oxide (Magnesium Oxide 400 Mg Tab) 400 mg PO DAILY [facility] Stop: 09/12/20 08:59 Last Admin: 08/17/20 08:01 Dose: 400 mg Documented by: Metoprolol Tartrate (Metoprolol Tartrate 25 Mg Tab) 25 mg PO BID [facility] Stop: 09/12/20 20:59 Last Admin: 08/17/20 08:00 Dose: 25 mg Documented by: Miscellaneous (Carbohydrates For Hypoglycemia ) 15 - 30 gm PO UD PRN PRN Reason: Hypoglycemia Protocol Stop: 09/11/20 22:15 Last Admin: 08/16/20 23:45 Dose: 15 gm Documented by: Miscellaneous Information (Pharmacy Glycemic Mgmt Consult) 1 ea N/A UD [facility] Stop: 09/12/20 11:19 Morphine Sulfate (Morphine Sulfate Ir 15 Mg Tab (Immediate Release)) 15 mg PO BID [facility] Stop: 08/26/20 22:15 Last Admin: 08/17/20 08:03 Dose: 15 mg Documented by: Polyethylene Glycol (Polyethylene (Miralax) 17 Gm Pack) 17 gm PO DAILY PRN PRN Reason: Constipation Stop: 09/15/20 17:16 Potassium Phosphate (Pot Phosphate Monobasic W/ Sod Tab) 1 tab PO QID [facility] Stop: 09/14/20 12:59 Last Admin: 08/17/20 15:13 Dose: 1 tab Documented by: Pregabalin (Pregabalin 100 Mg Cap) 100 mg PO TID [facility] Stop: 09/11/20 22:15 Last Admin: 08/17/20 15:13 Dose: 100 mg Documented by: Rosuvastatin Calcium (Rosuvastatin Calcium 20 Mg Tab) 40 mg PO DAILY [facility] Stop: 09/12/20 08:59 Last Admin: 08/17/20 08:00 Dose: 40 mg Documented by: Sodium Chloride (Sodium Chloride 0.9% 10ml Flush) 30 ml IV Q24H [facility] Stop: 08/18/20 11:01 Last Admin: 08/17/20 13:09 Dose: 30 ml Documented by: Topiramate (Topiramate 25 Mg Tab) 25 mg PO BID [facility] Stop: 09/11/20 22:15 Last Admin: 08/17/20 08:00 Dose: 25 mg Documented by: Vitamin D (Cholecalciferol 1,000 Units 25 Mcg Tab) 5,000 units PO DAILY [facility] Stop: 09/12/20 08:59 Last Admin: 08/17/20 08:00 Dose: 5,000 units Documented by:
[2020-08-17] MEDS ORDERED: INSULIN HUMAN NPH SC SCH ×2 (17:00)
[2020-08-17] MEDS: CARBOHYDRATES FOR HYPOGLYCEMIA PO PRN (17:10)
[2020-08-17] MEDS ORDERED: FUROSEMIDE 20 MG in SYRINGE 0 ML IV SCH (18:00)
[2020-08-17] MEDS ORDERED: DEXTROSE 10% 1,000 ML IV SCH (18:00)
[2020-08-17 20:13] LABS: Partial Thromboplastin Ratio 3.1
[2020-08-17 20:41] LABS: Partial Thromboplastin Time 87.3 Seconds (21.0-31.0)
[2020-08-17] MEDS: CYCLOBENZAPRINE HCL 10 MG TAB PO SCH (21:00)
[2020-08-17] MEDS: DULoxetine HCL 30 MG CAP PO SCH (21:03)
[2020-08-17] MEDS: DULoxetine HCL 60 MG CAP PO SCH (21:04)
[2020-08-18] MEDS: LEVALBUTEROL TARTRATE 15 GM HFA.AER.AD INH SCH ×4 (00:29→19:24)
[2020-08-18] MEDS: AMPICILLIN/SULBACTAM SOD 3,000 MG in 0.9 % SODIUM CHLORIDE 100 ML IV SCH ×2 (03:17→09:40)
[2020-08-18] MEDS ORDERED: INSULIN ASPART 100 UNITS/ML 3 ML PEN SC SCH ×2 (04:00)
[2020-08-18 04:30] LABS: Hemoglobin 8.7 g/dL (14.0-18.0); Mean Corpuscular Hemoglobin 27.3 pg (25-34); Mean Corpuscular Hgb Conc 32.2 g/dL (32-36); Mean Corpuscular Volume 84.6 fL (80-100); Mean Platelet Volume 10.8 fL (7.4-10.4); Nucleated RBC # (auto) 0.08 K/uL (0-0); Nucleated RBC % (auto) 0.3 %; Platelet Count 652 K/uL (130-400); RDW Standard Deviation 51.1 fL (36.4-46.3); Red Blood Count 3.19 M/uL (4.7-6.1); White Blood Count 25.76 K/uL (4.8-10.8)
[2020-08-18 04:47] LABS: BUN Creatinine Ratio 16.5 (10-20); Calcium 7.7 mg/dl (8.5-10.1); Creatinine Clr Calc Pharmacy 50.9 ml/min; Est GFR (African American) 56.1; Est GFR (Non-African American) 48.4; Potassium 3.3 mmol/L (3.5-5.1)
[2020-08-18 04:50] LABS: Partial Thromboplastin Ratio 1.9
[2020-08-18 04:52] LABS: C Reactive Protein 17.4 mg/dl (0-0.29)
[2020-08-18 05:01] LABS: Basophils # (auto) 0.03 K/uL (0-0.2); Basophils % (auto) 0.1 %; Eosinophils # (auto) 0.05 K/uL (0-0.5); Eosinophils % (auto) 0.2 %; Immature Granulocytes # (auto) 1.23 K/uL (0.00-0.02); Immature Granulocytes % (auto) 4.8 %; Lymphocytes # (auto) 1.75 K/uL (1.2-3.4); Lymphocytes % (auto) 6.8 %; Monocytes # (auto) 1.31 K/uL (0.11-0.59); Monocytes % (auto) 5.1 %; Neutrophils # (auto) 21.39 K/uL (1.4-6.5)
[2020-08-18 05:10] LABS: Partial Thromboplastin Time 53.8 Seconds (21.0-31.0)
[2020-08-18] MEDS ORDERED: INSULIN HUMAN NPH SC SCH ×2 (08:00→08:45)
[2020-08-18] MEDS: PANTOprazole 40 MG in SYRINGE 0 ML IV SCH ×2 (08:19→21:04)
[2020-08-18] MEDS: dexAMETHasone 6 MG in SYRINGE 0 ML IV SCH (08:19)
[2020-08-18] MEDS: CHOLECALCIFEROL 1,000 UNITS 25 MCG TAB PO SCH (08:21)
[2020-08-18] MEDS: CYANOCOBALAMIN 500 MCG TABLET (VITAMIN B-12) PO SCH (08:21)
[2020-08-18] MEDS: ASPIRIN 81 MG ECTAB PO SCH (08:22)
[2020-08-18] MEDS: METOPROLOL TARTRATE 25 MG TAB PO SCH ×2 (08:22→21:08)
[2020-08-18] MEDS: TOPIRAMATE 25 MG TAB PO SCH ×2 (08:22→21:09)
[2020-08-18] MEDS: MAGNESIUM OXIDE 400 MG TAB PO SCH (08:22)
[2020-08-18] MEDS: ROSUVASTATIN CALCIUM 20 MG TAB PO SCH (08:22)
[2020-08-18] MEDS: FINASTERIDE 5 MG TAB PO SCH (08:23)
[2020-08-18] MEDS: POT PHOSPHATE MONOBASIC W/ SOD TAB PO SCH ×4 (08:23→21:08)
[2020-08-18] MEDS: MoRPHine SULFATE IR 15 MG TAB (IMMEDIATE RELEASE) PO SCH ×2 (08:24→21:03)
[2020-08-18] MEDS: PREGABALIN 100 MG CAP PO SCH ×3 (08:24→21:03)
[2020-08-18] MEDS: INSULIN GLARGINE SOLOSTAR 100 UNITS/ML 3 ML PEN SC SCH (08:50)
[2020-08-18] MEDS: INSULIN ASPART 100 UNITS/ML 3 ML PEN SC SCH ×4 (08:50→21:34)
[2020-08-18] MEDS ORDERED: FUROSEMIDE 40 MG in SYRINGE 0 ML IV SCH (09:00)
[2020-08-18] MEDS ORDERED: INSULIN GLARGINE SOLOSTAR 100 UNITS/ML 3 ML PEN SC SCH (09:00)
[2020-08-18] MEDS: HEPARIN SODIUM/DEXTROSE 25,000 UNITS/500 ML BAG IV SCH (10:10)
--- NOTE | 2020-08-18 11:17 | Pharmacy Report ---
Pharmacy Glycemic Short Note 2 - Date of Service August 18, 2020 - Glycemic Short BSG Results (Last 24 hours): OUTPATIENT ANTIDIABETIC REGIMEN: * Insulin Glargine 20 units SQ QAM + Linagliptin 5mg PO Daily * A1c = 9.4% (08/13/2020) ASSESSMENT: 08/18: * Joe received a total of 52 units of insulin yesterday * 50 units basal + 2 units bolus - almost 100% basal insulin * BSGs were 26-70-11-11-24-14-28-87-42-61-97-163 mg/dL - significant hypoglycemia yesterday * Patient was started on BID NPH insulin 2 days ago which likely resulted in too much basal insulin causing hypoglycemia yesterday * He was symptomatic yesterday and received 25 mLs of D50 around midnight, 50 mLs of D50 around lunchtime, and 50 mLs of D50 around dinnertime. He also received 15 gm CHO at dinner last evening for his hypoglycemia. * He was also started on a Dextrose infusion at 60 mLs/hr yesterday. * His PO intake was significantly decreased yesterday which could have also played a role in his hypoglycemia. * Fasting BSG this AM was 217 mg/dL which is elevated. This is likely due to patient's insulin regimen being decreased significantly yesterday secondary to hypoglycemia and the dextrose 10% infusion which is still running at 45 mLs/hr. * I have continued his Lantus dose of 20 units for today. I reduced his AM NPH dose to 20 units in plans of resuming BID dosing at a much lower dose. Also, given hyperglycemia today I will begin to tighten his correctional/prandial insulin today. PLAN FOR INPATIENT GLYCEMIC CONTROL: * Hold outpatient oral diabetes medications * Basal insulin - increase by 20% * Lantus 20 units SQ daily * NPH 20 units SQ AM * Bolus insulin - tightened CF/CR * NovoLog per scale ACHS or Q6hrs while NPO * Goal Range: Low 110 mg/dL - High 140 mg/dL * tighten: Correction Factor: 15 mg/dL/unit * tighten: Nutritional / Prandial insulin per carb ratio of 1 unit per 5 grams CHO consumed PLAN FOR DISCHARGE: * to be determined
[2020-08-18] MEDS: REMDESIVIR 100 MG in SODIUM CHLORIDE 0.9% 230 ML IV SCH (11:40)
[2020-08-18] MEDS: DOXYCYCLINE HYCLATE 100 MG in DEXTROSE 5% 100 ML IV SCH ×2 (12:21→23:50)
[2020-08-18] MEDS: SODIUM CHLORIDE 0.9% 10ML FLUSH IV SCH (13:00)
[2020-08-18] MEDS: AMPICILLIN 2,000 MG in SODIUM CHLOR 0.9% AD-VAN 100 ML IV SCH ×2 (16:48→21:04)
--- NOTE | 2020-08-18 18:44 | Hospitalist Progress Note ---
Date of Service August 18, 2020 Assessment & Plan (1) Atrial fibrillation, new onset: Present on admission with shortness of breath on exertion associated with palpitations EKG on admission showed A. fib with HR 97 Possible related to electrolyte imbalance due to diarrhea and acute infection with covid 19 Was started on a IV heparin drip in the ER due to high [id number] score Echo obtained and Cardiology consulted - Afib d/t acute illness, cont. IV heparin and treat underlying illness Continued metoprolol 37.5 mg BID -> switched to 25 BID w/ digoxin d/t hypotension Will monitor closely in tele Currently HR well controlled and BP is on the lower side with systolic 90 and diastolic 50 Acute diastolic CHF Condition deteriorated with increasing shortness of breath and chest x-ray findings of CHF on 08/17/2020 Has been getting intravenous Lasix and seems to be improving We will get chest x-ray tomorrow and continue IV Lasix for now + COVID 19 CXR showed no active disease in the chest on admission Denies any recent exposure to anyone testing positive with COVID 19 Recently discharged from [facility], about 10 days ago saturated well on RA on admission, now on 2L and later saturation went down And dexamethasone and remdesivir started (08/14) Started ceftriaxone and doxy, but given urine cultx, switched ceft to unasyn Appreciate pulmonary input and recommendation Will check Procalcitonin, Ferritin, ESR and CRP -CRP and ESR remain high but procalcitonin is only minimally elevated We will continue current antibiotic for UTI and possible atypical pneumonia Elevated troponin Mostly related to Afib Troponin on admission 0.067 EKG showed no ischemic changes Already on Heparin drip for Afib currently denies any chest pain Follow up echo Continue aspirin, statin and metoprolol KENIA Possible related to dehydration due to diarrhea Creatinine on admission 1.66 (baseline 1.2-1.3) received IVF in the ER , continued IV hydration Will avoid nephrotoxic agents Continue monitor BMP Cr much improved ~1.2 Electrolytes Imbalance Mg 1.3 and K 2.7 and Na 129 on admission, Phos low as well Replete and monitor electrolyte imbalance likely d/t diarrheal illness, poor oral intake Now improved-we will supplement accordingly Elevated WBC Possible related to +COVID 19 lactate normal and afebrile Start Abx given hypotension and significantly elevated WBC (likely 2/2 COVID and UTI) Continue monitor CBC UTI UA positive for Leukocytes and bacteria Elevated WBC Pt reports lower abd. pain, mostly LLQ Ucltx - posit. for Enterococcus faecalis Switched ceftriaxone to Unasyn given urine cultx (08/14) LLQ abd. pain - in the setting of anemia - also hx of diarrhea prior to admission - stool cultx, c. diff ordered - sample uncollected - obtained CT abdomen/pelvis - no acute process Anemia - initial Hgb 11, now about 8 - pt was given IVF - FOBT ordered - obtained CT abd.pelvis to r/o any bleed, no acute process DM type 2 uncontrolled DM, last Hba1c 11.6 on 06/26 Will hold oral diabetes med (metformin, trajenta and Januvia) Will continue lantus and add novolog sliding scale during the hospital course Continue monitor BS -blood sugar has been running high with general improvement Dyslipidemia Recent lipid panel on 08/10 with Chol 99, HDL 32 and LDL 46 Continue statin stable L AKA fall precaution Consider PT/OT once symptoms improve DVT px on IV heparin drip CODE STATUS DNR as per pt wishes Disposition : discharge once medically stable Contacted and updated pt's sister, who is very appreciative of updates. Also confirmed DNR/DNI status with pt and his sister over the phone. Discussed with patient's sister again today 08/17/2020 Admission and Anticipated Discharge Date Admission Date: August 12, 2020 Subjective The patient was seen and examined in telemetry unit He was noted to have increasing shortness of breath with decreasing saturations since last night Noted to have increasing lung opacity on x-ray and has been receiving intravenous Lasix A little bit better this morning during examination Denies any significant symptoms 08/18/2020 The patient was seen and examined in telemetry unit He has been feeling much better today His shortness of breath has improved and denies any significant pain Remains generally weak and lethargic Review of Systems Review of Systems: All systems reviewed and are unremarkable except as noted below Respiratory: + cough and + dyspnea (Minimal dyspnea at rest) Gastrointestinal: + abdominal pain (LLQ (improved)) Musculoskeletal: Generally weak but no acute arthritis in any joint Physical Exam Physical Exam: Lying in bed with minimal distress due to shortness of breath Constitutional: well developed, well nourished, + acute distress (Due to shortness of breath) and + obese Eyes: PERRL, conjunctivae normal, anicteric sclerae ENMT: external ear and nose normal, oropharynx normal Neck: trachea midline, no thyromegaly Respiratory: + respiratory distress; no labored breathing Auscultation: + diminished lung sounds, + crackles (At the bases) and + wheezes (Minimal wheezing bilaterally) Cardiovascular: Rate/Rhythm: + irregularly irregular Heart Sounds: + murmur (2/6 ejection systolic murmur over precordium) Extremities: + edema (S2 1+ edema bilaterally) Gastrointestinal (Abdomen): Inspection/Auscultation: normal bowel sounds; abdomen not distended Percussion/Palpation: abdomen soft; abdomen nontender Musculoskeletal: Arthritis in any joint Neurologic: moves all extremities Lymphatic: no cervical or axillary lymphadenopathy Results & Data Results & Data ([facility]) Vital Signs (Past 12 Hours) Vital Signs Temp Pulse Pulse Pulse Resp BP Pulse Ox 08/18/20 16:15 36.7 C 73 23 107/56 L 90 08/18/20 13:14 82 21 88 L 08/18/20 12:27 77 08/18/20 10:00 36.9 C 85 22 106/82 90 08/18/20 07:15 77 78 22 96 08/18/20 06:52 37.0 C 78 20 95/53 L 98 Laboratory Results Short CBC 08/18/20 Range/Units 03:49 WBC 25.76 H (4.8-10.8) K/uL Hgb 8.7 L (14.0-18.0) g/dL Hct 27.0 L (42-52) % Plt Count 652 H (130-400) K/uL BMP 08/18/20 03:49 Sodium 138 Potassium 3.3 L Chloride 101 Carbon Dioxide 26 BUN 24 H Creatinine 1.46 H Glucose 205 H Calcium 7.7 L Medications Administered Current Inpatient Medications Acetaminophen (Acetaminophen 325 Mg Tab) 325 mg PO Q6H PRN PRN Reason: Pain Stop: 09/11/20 22:15 Albuterol (Albuterol Hfa 8 Gm Inhaler) 2 puffs INH Q6H PRN PRN Reason: Shortness Of Breath Stop: 09/11/20 22:15 Aspirin (Aspirin 81 Mg Ectab) 81 mg PO DAILY SKYE Stop: 09/12/20 08:59 Last Admin: 08/18/20 08:22 Dose: 81 mg Documented by: Cyanocobalamin (Cyanocobalamin 500 Mcg Tablet (Vitamin B-12)) 1,000 mcg PO DAILY SKYE Stop: 09/12/20 08:59 Last Admin: 08/18/20 08:21 Dose: 1,000 mcg Documented by: Cyclobenzaprine HCl (Cyclobenzaprine Hcl 10 Mg Tab) 10 mg PO HS SKYE Stop: 09/11/20 22:59 Last Admin: 08/17/20 21:00 Dose: 10 mg Documented by: Dextrose (Dextrose 50% 50 Ml Syringe) 25 - 50 ml IV UD PRN; Protocol PRN Reason: Hypoglycemia Protocol Stop: 09/11/20 22:15 Last Admin: 08/17/20 17:36 Dose: 50 ml Documented by: Duloxetine HCl (Duloxetine Hcl 60 Mg Cap) 60 mg PO PM SKYE Stop: 09/11/20 22:15 Last Admin: 08/17/20 21:04 Dose: 60 mg Documented by: Duloxetine HCl (Duloxetine Hcl 30 Mg Cap) 30 mg PO QPM SKYE Stop: 09/11/20 22:15 Last Admin: 08/17/20 21:03 Dose: 30 mg Documented by: Finasteride (Finasteride 5 Mg Tab) 5 mg PO DAILY SKYE Stop: 09/12/20 08:59 Last Admin: 08/18/20 08:23 Dose: 5 mg Documented by: Glucagon (Glucagon For Inj 1 Mg Vial) 1 mg SQ UD PRN; Protocol PRN Reason: Hypoglycemia Protocol Stop: 09/11/20 22:15 Glucose (Glucose 10 Tabs/Tube) 4 - 8 tabs PO UD PRN; Protocol PRN Reason: Hypoglycemia Protocol Stop: 09/11/20 22:15 Glucose (Glucose 40% Gel 15 Gm Tube) 15 - 30 gm PO UD PRN; Protocol PRN Reason: Hypoglycemia Protocol Stop: 09/11/20 22:15 Heparin Sodium/Dextrose (Heparin Sodium/Dextrose) 25,000 units in 500 mls @ 23 mls/hr IV .[id number] SKYE; Protocol Stop: 09/11/20 16:29 Last Admin: 08/18/20 10:10 Dose: 1,150 units/hr, 23 mls/hr Documented by: Pantoprazole Sodium 40 mg/ (Syringe) 10 mls @ 5 mls/min IV BID SKYE Stop: 09/13/20 10:29 Last Admin: 08/18/20 08:19 Dose: 5 mls/min Documented by: Doxycycline Hyclate 100 mg/ (Dextrose) 110 mls @ 50 mls/hr IV Q12H [facility] Stop: 08/21/20 10:59 Last Infusion: 08/18/20 14:35 Dose: Infused Documented by: Dexamethasone 6 mg/ Syringe 1.5 mls @ 1 mls/min IV QAM [facility] Stop: 09/16/20 04:54 Last Admin: 08/18/20 08:19 Dose: 1 mls/min Documented by: Furosemide 40 mg/ Syringe 4 mls @ 4 mls/min IV DAILY [facility] Stop: 09/17/20 08:59 Last Admin: 08/18/20 08:19 Dose: 4 mls/min Documented by: Ampicillin Sodium 2,000 mg/ (Sodium Chloride) 100 mls @ 200 mls/hr IV Q6H [facility] Stop: 08/23/20 15:59 Last Infusion: 08/18/20 17:59 Dose: Infused Documented by: Insulin Aspart (Insulin Aspart 100 Units/Ml 3 Ml Pen) 0 units SC ACHS [facility]; Protocol Stop: 09/14/20 11:29 Last Admin: 08/18/20 17:58 Dose: 15 units Documented by: Insulin Glargine (Insulin Glargine Solostar 100 Units/Ml 3 Ml Pen) 20 units SC DAILY [facility]; Protocol Stop: 09/16/20 08:59 Last Admin: 08/18/20 08:50 Dose: 20 units Documented by: Insulin Human NPH (Insulin Human Nph) 20 units SC DAILY@0800 [facility]; Protocol Stop: 09/16/20 07:59 Last Admin: 08/18/20 08:50 Dose: 20 units Documented by: Levalbuterol HCl (Levalbuterol Tartrate 15 Gm Hfa.Aer.Ad) 2 puffs INH Q6H [facility] Stop: 09/16/20 05:59 Last Admin: 08/18/20 13:14 Dose: 2 puffs Documented by: Magnesium Oxide (Magnesium Oxide 400 Mg Tab) 400 mg PO DAILY [facility] Stop: 09/12/20 08:59 Last Admin: 08/18/20 08:22 Dose: 400 mg Documented by: Metoprolol Tartrate (Metoprolol Tartrate 25 Mg Tab) 25 mg PO BID [facility] Stop: 09/12/20 20:59 Last Admin: 08/18/20 08:22 Dose: 25 mg Documented by: Miscellaneous (Carbohydrates For Hypoglycemia ) 15 - 30 gm PO UD PRN PRN Reason: Hypoglycemia Protocol Stop: 09/11/20 22:15 Last Admin: 08/17/20 17:10 Dose: 15 gm Documented by: Miscellaneous Information (Pharmacy Glycemic Mgmt Consult) 1 ea N/A UD [facility] Stop: 09/12/20 11:19 Morphine Sulfate (Morphine Sulfate Ir 15 Mg Tab (Immediate Release)) 15 mg PO BID SKYE Stop: 08/26/20 22:15 Last Admin: 08/18/20 08:24 Dose: 15 mg Documented by: Polyethylene Glycol (Polyethylene (Miralax) 17 Gm Pack) 17 gm PO DAILY PRN PRN Reason: Constipation Stop: 09/15/20 17:16 Potassium Phosphate (Pot Phosphate Monobasic W/ Sod Tab) 1 tab PO QID SKYE Stop: 09/14/20 12:59 Last Admin: 08/18/20 16:49 Dose: 1 tab Documented by: Pregabalin (Pregabalin 100 Mg Cap) 100 mg PO TID SKYE Stop: 09/11/20 22:15 Last Admin: 08/18/20 14:54 Dose: Not Given Documented by: Rosuvastatin Calcium (Rosuvastatin Calcium 20 Mg Tab) 40 mg PO DAILY SKYE Stop: 09/12/20 08:59 Last Admin: 08/18/20 08:22 Dose: 40 mg Documented by: Topiramate (Topiramate 25 Mg Tab) 25 mg PO BID SKYE Stop: 09/11/20 22:15 Last Admin: 08/18/20 08:22 Dose: 25 mg Documented by: Vitamin D (Cholecalciferol 1,000 Units 25 Mcg Tab) 5,000 units PO DAILY SKYE Stop: 09/12/20 08:59 Last Admin: 08/18/20 08:21 Dose: 5,000 units Documented by:
[2020-08-18] MEDS: INSULIN HUMAN NPH SC SCH (19:12)
[2020-08-18] MEDS: CYCLOBENZAPRINE HCL 10 MG TAB PO SCH (21:03)
[2020-08-18] MEDS: DULoxetine HCL 60 MG CAP PO SCH (21:08)
[2020-08-18] MEDS: DULoxetine HCL 30 MG CAP PO SCH (21:08)
[2020-08-19] MEDS: LEVALBUTEROL TARTRATE 15 GM HFA.AER.AD INH SCH (00:46)
--- NOTE | 2020-08-19 03:47 | Death Pronouncement Note ---
Date of Service August 19, 2020 Pronouncement Note Admission Date Admission Date: August 12, 2020 Date and Time of Date of : 08/19/20 Time of : 03:15 Contributing Factors (1) Atrial fibrillation, new onset: (2) COVID-19: (3) Coronary artery disease: (4) Acute hypoxemic respiratory failure: Additional Data Confirmation of : no pulse, no respirations, no heart sounds and pupils fixed and dilated Family: contacted Attending physician: Lea Beasley MD
--- NOTE | 2020-08-19 03:49 | Hospitalist Progress Note ---
Date of Service August 19, 2020 Assessment & Plan Admission and Anticipated Discharge Date Admission Date: August 12, 2020 Subjective Was called that patient heart rate dropping into 30's and patient is not keeping bipap on and is confused. code purple was called. but by the time went to see the patient . Patient is DNR/DNI. Notified family. Results & Data Results & Data ([facility]) Vital Signs (Past 12 Hours) Vital Signs Temp Pulse Pulse Resp BP Pulse Ox 08/19/20 02:37 79 22 93 08/19/20 01:03 81 08/19/20 00:47 68 26 H 91 08/18/20 23:52 36.7 C 73 22 118/71 97 08/18/20 23:00 92 H 20 93 08/18/20 22:24 36.6 C 76 23 108/55 L 90 08/18/20 19:43 36.8 C 85 24 119/60 90 08/18/20 19:25 86 20 93 08/18/20 16:15 36.7 C 73 23 107/56 L 90
--- NOTE | 2020-08-19 08:10 | Discharge Summary ---
Date of Service August 19, 2020 Admission HPI Per Admitting Provider 70 years old male with past medical history of uncontrolled diabetes type 2, also left 6 obstructive sleep apnea, BPH, chronic pain, left knee AKA,, hypertension dyslipidemia, CAD s/p CABG, diabetic neuropathy presented to the ER with chest pain associated with exertional shortness of breath. Patient said about 2 days ago he developed chest discomfort. He described the chest pain as tightness, nonradiated and located in the middle of his chest. He said that he has been having a lot of shortness of breath with exertion associated with on and off palpitation. He said that he never had any history of irregular heart rate. He said in the last few days he was having diarrhea about 3-4 loose bowel movement per day. He said that his diarrhea improved and his last bowel movement was yesterday. he said his symptoms worsening today and prompted him to come to the ER for eval. He said about a week and half ago he was discharged from the SNF to home with home health. Patient denies any cough, fever, abdomin al pain, vomiting, loss of smell, loss of taste or urinary symptoms. He denies any recent known exposure with anyone testing positive COVID-19. currently he said he feels much better since he is not exerting himself. Since patient said he has been having worsening shortness of breath with exertion and diarrhea and was recently discharged from a group home facility, we checked him for Covi d 19 and came back positive. Admission Exam Per Admitting Provider Physical Exam: General- No acute distress Head- atraumatic Eyes- PERRL, EOMI, ENT- decrease hearing function Neck- supple, no JVD Lungs- clear to auscultation Heart- irregular rhythm Abdomen- normal bowel sounds, soft, nontender Extremities- no calf tenderness, L AKA Neuro- alert, oriented x 3; PERRL, EOMI; no facial palsy; no dysarthria Skin- warm & dry Principal Diagnosis The patient on August, at 0315 hours. Causes of : 1. Acute hypoxemic respiratory failure, #2: Pneumonia, #3: COVID-19, #4: Atrial fibrillation Discharge Data Allergies Allergy/AdvReac Type Severity Reaction Status Date / Time No Known Drug Allergies Allergy Unknown Verified 08/12/20 17:34 Consultations 08/12/20 16:30 ED Decision to Admit Stat 08/12/20 22:16 Consult Cardiology Routine 08/17/20 05:43 Consult Pulmonology Routine Ordered Studies 08/14/20 16:51 CT abd pelvis wo con Urgent Diabetes Follow up Diabetes Follow-up Needed for HgbA1c >9% Hospital Course (1) Atrial fibrillation, new onset: Present on admission with shortness of breath on exertion associated with palpitations EKG on admission showed A. fib with HR 97 Possible related to electrolyte imbalance due to diarrhea and acute infection with covid 19 Was started on a IV heparin drip in the ER due to high [id number] score Echo obtained and Cardiology consulted - Afib d/t acute illness, cont. IV heparin and treat underlying illness Continued metoprolol 37.5 mg BID -> switched to 25 BID w/ digoxin d/t hypotension Will monitor closely in tele Currently HR well controlled and BP is on the lower side with systolic 90 and diastolic 50 Acute diastolic CHF Condition deteriorated with increasing shortness of breath and chest x-ray findings of CHF on 08/17/2020 Has been getting intravenous Lasix and seems to be improving We will get chest x-ray tomorrow and continue IV Lasix for now + COVID 19 CXR showed no active disease in the chest on admission Denies any recent exposure to anyone testing positive with COVID 19 Recently discharged from [facility], about 10 days ago saturated well on RA on admission, now on 2L and later saturation went down And dexamethasone and remdesivir started (08/14) Started ceftriaxone and doxy, but given urine cultx, switched ceft to unasyn Appreciate pulmonary input and recommendation Will check Procalcitonin, Ferritin, ESR and CRP -CRP and ESR remain high but procalcitonin is only minimally elevated We will continue current antibiotic for UTI and possible atypical pneumonia Elevated troponin Mostly related to Afib Troponin on admission 0.067 EKG showed no ischemic changes Already on Heparin drip for Afib currently denies any chest pain Follow up echo Continue aspirin, statin and metoprolol KENIA Possible related to dehydration due to diarrhea Creatinine on admission 1.66 (baseline 1.2-1.3) received IVF in the ER , continued IV hydration Will avoid nephrotoxic agents Continue monitor BMP Cr much improved ~1.2 Electrolytes Imbalance Mg 1.3 and K 2.7 and Na 129 on admission, Phos low as well Replete and monitor electrolyte imbalance likely d/t diarrheal illness, poor oral intake Now improved-we will supplement accordingly Elevated WBC Possible related to +COVID 19 lactate normal and afebrile Start Abx given hypotension and significantly elevated WBC (likely 2/2 COVID and UTI) Continue monitor CBC UTI UA positive for Leukocytes and bacteria Elevated WBC Pt reports lower abd. pain, mostly LLQ Ucltx - posit. for Enterococcus faecalis Switched ceftriaxone to Unasyn given urine cultx (08/14) LLQ abd. pain - in the setting of anemia - also hx of diarrhea prior to admission - stool cultx, c. diff ordered - sample uncollected - obtained CT abdomen/pelvis - no acute process Anemia - initial Hgb 11, now about 8 - pt was given IVF - FOBT ordered - obtained CT abd.pelvis to r/o any bleed, no acute process DM type 2 uncontrolled DM, last Hba1c 11.6 on 06/26 Will hold oral diabetes med (metformin, trajenta and Januvia) Will continue lantus and add novolog sliding scale during the hospital course Continue monitor BS -blood sugar has been running high with general improvement Dyslipidemia Recent lipid panel on 08/10 with Chol 99, HDL 32 and LDL 46 Continue statin stable L AKA fall precaution Consider PT/OT once symptoms improve DVT px on IV heparin drip CODE STATUS DNR as per pt wishes Disposition : discharge once medically stable Contacted and updated pt's sister, who is very appreciative of updates. Also confirmed DNR/DNI status with pt and his sister over the phone. Discussed with patient's sister again today 08/17/2020 (2) COVID-19: (3) Coronary artery disease: (4) Acute hypoxemic respiratory failure: Total Time Total Time Spent Total Time Spent (In Minutes): 20 monutes Total Time Includes: Other Discharge Plan Discharge Items Patient Disposition:
== END 2020-08-19 05:45 | disposition expired | DRG 177 ==
LOC: ED 14:23 → SUATTDRO 18:30 → 2S 18:30